=== PATIENT | female | born 1940 | race Caucasian/White ===

== ENCOUNTER 2024-10-21 18:25 | Observation (INO) ==
--- NOTE | 2024-10-21 18:49 | Emergency Department Note ---
Impression & Plan Compression fx, lumbar spine, DDD (degenerative disc disease), lumbar ED Provider Note NAME: NIKKI MOORE AGE: 84 SEX: F : 1940 ARRIVES VIA: Ambulance INFORMANT: Patient, ED PROVIDER(S): Dar Richardson DO CHIEF COMPLAINT: Back pain HPI: The patient is an 84-year-old female who presented to the emergency department for an evaluation of back pain. The patient's had back pain for approximately 4 weeks. It started when she was lifting something heavy. She notices pain going into her right leg. She was seen at the pain clinic. She has been treated by her family doctor as an outpatient. Today she had an episode where she could not stand and was on the floor. It was so profound that she spent the night on the floor. She was helped up by the nursing staff at the [facility]. They recommended that she come to the emergency department for further evaluation. She denies having any abdominal pain. She denies having any chest pain or difficulty breathing. ROS: See above HPI for pertinent positives & negatives. A total of 10 systems reviewed and were otherwise negative. PAST MEDICAL HISTORY: See Below PAST SURGICAL HISTORY: See Below FAMILY HISTORY: See Below SOCIAL HISTORY: See Below HOME MEDICATIONS: See Below ALLERGIES: See Below VITALS: See Below PHYSICAL EXAMINATION: GENERAL: Patient is awake alert in no acute distress patient is resting comfortably and showing no signs of anxiety EYES: The conjunctivae are clear. The pupils are round and reactive. EARS, NOSE, MOUTH AND THROAT: The nose is without any evidence of any deformity. NECK: The neck is nontender and supple. RESPIRATORY: Normal respiratory effort is noted there is no evidence of wheezing rhonchi or rales CARDIOVASCULAR: Regular rate and rhythm noted there no murmurs rubs or gallops normal S1 normal S2. GASTROINTESTINAL: The abdomen is soft. Abdomen is nontender. BACK: No midline tenderness was noted. There was pain in the right sciatic notch. Range of motion was intact but painful. MUSCULOSKELETAL/EXTREMITIES: There is no evidence of gross deformity full range of motion is noted in the hips and shoulders. SKIN: There is no obvious evidence of any rash. There are no petechiae, pallor or cyanosis noted. NEUROLOGIC: Patient is awake alert and oriented x3 strength is symmetric patellar reflexes are 1+ bilaterally. Achilles tendon reflexes were 1+ bilaterally. Great toe raise was symmetric. MEDICAL DECISION MAKING: The patient is an 84-year-old female who presented to the emergency department for an evaluation of back pain. The patient had a minor trauma from lifting. She did have reproducible back pain but given her age and comorbidities further laboratory and radiographic studies were obtained. The patient was treated with pain medication in the emergency department. I discussed the patient's laboratory and radiographic studies with her. She also was found to have signs of degenerative disc disease as well as an age-indeterminate L5 compression fracture. She does not remember any of the previous injury. This may indicate an injury that occurred when she for started having this pain. I discussed her condition with the on-call [facility] hospitalist. They have agreed to evaluate the patient in the emergency department. Triage Nursing notes reviewed. Prior medical records reviewed Vital Signs: reviewed and remarkable for no significant abnormalities Differential diagnosis: Musculoskeletal, disc herniation, fracture, metastatic disease, cord compression, discitis, sciatica, cauda equina, infection, aortic disease, renal colic, gastrointestinal, as well as other pathologies. ER treatment provided: See below Diagnostics interpreted by me: ECG: none Cardiac Monitoring: An order was placed for continuous cardiac monitoring. The monitor shows a rate of 67 bpm with sinus rhythm. Laboratory studies: As stated above and show below. Imaging studies: See below. Radiographic imaging was reviewed by myself Consultation(s): I discussed this case with Dr. Bhandari [facility]. Past Med/Surg History Problem List (Updated 10/21/24 @ 22:16 by Dar Richardson DO) DDD (degenerative disc disease), lumbar (Acute) Compression fx, lumbar spine (Acute) Acute leg pain (Acute) Collapse of right external ear canal SNHL (sensorineural hearing loss) Cerumen impaction History of vein stripping H/O cataract removal with insertion of prosthetic lens Cataract Varicose vein of leg Depression Family History Father Hearing loss Stroke Aunt Asthma FHx: allergies Other No family history of adverse response to anesthesia No family history of bleeding disorder Social History Smoking Status: Never smoker Preferred Language: Hungarian Feels Safe at Home: Yes Allergies Allergies Allergy/AdvReac Type Severity Reaction Status Date / Time aspirin AdvReac Intermediate Upset Verified 02/19/24 13:44 stomach Home Meds Home Medications Medication Instructions Recorded Confirmed cholecalciferol (vitamin D3) 25 25 mcg PO DAILY 01/20/23 02/19/24 mcg (1,000 unit) tablet cyanocobalamin (vitamin B-12) 1,000 mcg PO DAILY 01/20/23 02/19/24 1,000 mcg tablet sertraline 100 mg tablet 200 mg PO DAILY 01/20/23 02/19/24 melatonin 5 mg tablet 5 mg PO HS PRN Insomnia 01/21/23 02/19/24 vitamins A,C,Q-[id number]-rzjkvb 2,148 1 tab PO BID 01/21/23 02/19/24 mcg-113 mg-45 mg-17.4 mg tablet Previous Rx's Medication Instructions Recorded albuterol sulfate 90 mcg/actuation 1 inh inhalation QID PRN shortness 01/21/23 aerosol inhaler (Proventil HFA) of breath or wheezing #6.7 grams Results & Data (ED) Vital Signs Vital Signs - 24 hr 10/21/24 18:21 10/21/24 18:34 10/21/24 18:48 Pulse Rate 73 82 Pulse Rate [Apical] Respiratory Rate 18 Respiratory Effort / Characteristics Non-Labored Spontaneous Respiratory Depth Normal Respiratory Pattern Regular Blood Pressure 185/86 H Blood Pressure [Right Arm] Blood Pressure Mean 119 Blood Pressure Mean [Right Arm] Pulse Oximetry 99 97 Oxygen Delivery Method Room Air Room Air Oxygen Flow Rate Sepsis Recent Fever Within 48 Hours No Sepsis New/Unexplained Change in Mental Status N/A Sepsis Action Taken by Nursing No Action Required 10/21/24 20:00 Pulse Rate Pulse Rate [Apical] 67 Respiratory Rate 18 Respiratory Effort / Characteristics Non-Labored Spontaneous Respiratory Depth Normal Respiratory Pattern Regular Blood Pressure Blood Pressure [Right Arm] 142/73 H Blood Pressure Mean Blood Pressure Mean [Right Arm] 96 Pulse Oximetry 98 Oxygen Delivery Method Nasal Cannula Oxygen Flow Rate 3 Sepsis Recent Fever Within 48 Hours Sepsis New/Unexplained Change in Mental Status Sepsis Action Taken by Alf Medications Current Medication List: was personally reviewed by me Laboratory Data Attestation: I reviewed the patient's lab results. 10/21/24 19:56 10/21/24 19:56 Lab Results 10/21/24 Range/Units 19:56 WBC 7.94 (4.8-10.8) K/ul RBC 5.14 (4.20-5.40) M/uL Hgb 14.5 (12.0-16.0) g/dl Hct 43.8 (37.0-47.0) % MCV 85.2 (80.0-100.0) fL MCH 28.2 (25.0-34.0) pg MCHC 33.1 (32.0-36.0) g/dL RDW Std Deviation 41.3 (36.4-46.3) fL RDW Coeff of Galdino 13.2 (11.5-14.5) % Plt Count 138 (130-400) K/uL MPV 9.5 (9.4-12.4) fL Immature Gran % (Auto) 0.4 % Neut % (Auto) 82.1 % Lymph % (Auto) 9.1 % Letcher % (Auto) 7.7 % Eos % (Auto) 0.6 % Baso % (Auto) 0.1 % Neut # (Auto) 6.52 H (1.40-6.50) K/uL Lymph # (Auto) 0.72 L (1.20-3.40) K/uL Letcher # (Auto) 0.61 H (0.11-0.59) K/uL Eos # (Auto) 0.05 (0.00-0.50) K/uL Baso # (Auto) 0.01 (0.00-0.20) K/uL Immature Gran # (Auto) 0.03 (0.01-0.20) K/uL PT 10.9 (9.0-12.0) Seconds INR 1.0 (0.9-1.1) APTT 26 (21-31) Seconds PTT Ratio 1.0 Sodium 138 (136-145) mmol/L Potassium 4.2 (3.5-5.1) mmol/L Chloride 104 (98-107) mmol/L Carbon Dioxide 28 (21-32) mmol/L Anion Gap 6 (3-11) BUN 18 (6-23) mg/dl Creatinine 0.79 (0.6-1.2) mg/dl Est Cr Clr Drug Dosing 57.8 ml/min eGFR 72.80 BUN/Creatinine Ratio 22.8 H (10-20) Glucose 122 H (70-99(Fasting)) mg/dl Calcium 9.8 (8.6-10.3) mg/dl Total Bilirubin 1.2 H (0.2-1.0) mg/dl AST 35 (13-39) U/L ALT 37 (7-52) U/L Alkaline Phosphatase 84 (34-104) U/L Troponin I High Sens 15.4 H (0-14) pg/ml Total Protein 7.5 (6.0-8.3) gm/dl Albumin 4.0 (3.4-5.0) gm/dl Globulin 3.5 (2.5-4.0) gm/dl Albumin/Globulin Ratio 1.1 (0.9-2) Lipase 24 (11-82) U/L Administered Medications Morphine Sulfate (Morphine Sulfate 4 Mg/Ml 1 Ml Carp\Vial) 4 mg IV Q15M PRN PRN Reason: Pain Stop: 11/04/24 18:38 Last Admin: 10/21/24 19:33 Dose: 4 mg Documented By: DEMETRIUS Discontinued Medications Ondansetron HCl (Ondansetron Inj 2 Mg/Ml 2 Ml Vial) 4 mg IV NOW STA Stop: 10/21/24 18:40 Last Admin: 10/21/24 19:33 Dose: 4 mg Documented By: DEMETRIUS Imaging Data Attestation: I personally reviewed and interpreted this imaging study as follows: My Impression: CT of the abdomen and pelvis was obtained in the emergency department. My interpretation is no free air or signs of bowel obstruction, final report below. Radiologist's Impression: Abdomen/Pelvis CT 10/21/24 18:39 Exam(s): CT ABDOMEN + PELVIS Without Contrast EXAM: CT Abdomen and Pelvis Without Intravenous Contrast CLINICAL HISTORY: Reason for exam: right flank pain. TECHNIQUE: Axial computed tomography images of the abdomen and pelvis without intravenous contrast. CTDI is 27.2 mGy and DLP is 1307.45 mGy-cm. Automated exposure control was utilized for the study. A dose lowering technique was utilized adhering to the principles of ALARA. COMPARISON: No relevant prior studies available. FINDINGS: ABDOMEN: Liver: Cyst in the left hepatic lobe measuring 1.5 cm. Gallbladder and bile ducts: Unremarkable. Pancreas: Unremarkable. Spleen: Mild splenomegaly. Adrenals: Unremarkable. Kidneys and ureters: No ureteral stone or obstructive uropathy. Stomach and bowel: Colonic diverticulosis. PELVIS: Appendix: No findings to suggest acute appendicitis. Bladder: Unremarkable. Reproductive: Unremarkable as visualized. ABDOMEN and PELVIS: Intraperitoneal space: Unremarkable. No free air. No significant fluid collection. Bones/joints: No acute fracture. Soft tissues: Unremarkable. Vasculature: Aortobiiliac atherosclerosis. Lymph nodes: Unremarkable. IMPRESSION: 1. No ureteral stone or obstructive uropathy. 2. Colonic diverticulosis. 3. Mild splenomegaly. Electronically signed by: Reilly Mccrary MD 10/21/24 21:[address] 10/21/24 18:39 Exam(s): CT L SPINE EXAM: CT Lumbar Spine Without Intravenous Contrast CLINICAL HISTORY: Reason for exam: right sided pain. TECHNIQUE: Axial computed tomography images of the lumbar spine without intravenous contrast. CTDI is 27.2 mGy and DLP is 1307.45 mGy-cm. Automated exposure control was utilized for the study. A dose lowering technique was utilized adhering to the principles of ALARA. COMPARISON: No relevant prior studies available. FINDINGS: Vertebrae: Age indeterminate superior endplate compression deformity at L5. Bones are osteopenic which limits evaluation for acute nondisplaced fracture trace anterolisthesis at L4-5. Discs/spinal canal/neural foramina: Degenerative disc disease most pronounced at L4-5 and L5-S1. No significant canal stenosis. Moderate bilateral foraminal stenosis. Soft tissues: Unremarkable. IMPRESSION: 1. Age indeterminate superior endplate compression deformity at L5, favored chronic. 2. Degenerative changes most pronounced at L4-5 and L5-S1. Electronically signed by: Reilly Mccrary MD 10/21/24 21:43 PM Discharge Plan Visit Data Chief Complaint: Fall Stated Complaint: FALL, WEAKNESS ED Provider: Dar Richardson Discharge Problem: Compression fx, lumbar spine, DDD (degenerative disc disease), lumbar Patient Disposition: Being Evaluated by Hospitalist Forms Stand Alone Forms: [employer] Prescriptions Prescriptions: No Action sertraline 100 mg tablet 200 mg PO DAILY cholecalciferol (vitamin D3) 25 mcg (1,000 unit) Tablet 25 mcg PO DAILY cyanocobalamin (vitamin B-12) 1,000 mcg Tablet 1,000 mcg PO DAILY Ocuvite Preservision 2,148 mcg-113 mg-45 mg-17.4mg Tablet 1 tab PO BID Rx Instructions: administer with AM and PM meals melatonin 5 mg Tablet 5 mg PO HS PRN (Reason: Insomnia) albuterol sulfate [Proventil HFA] 90 mcg/actuation HFA aerosol inhaler 1 inh inhalation QID PRN (Reason: shortness of breath or wheezing) Qty: 6.7 0RF Referrals Referrals: Nadir Roach MD [Primary Care Provider] - Discharge Problem: Compression fx, lumbar spine Qualifiers: Encounter type: initial encounter Lumbar vertebra fracture level: L5 Qualified Code(s): S32.050A - Wedge compression fracture of fifth lumbar vertebra, initial encounter for closed fracture DDD (degenerative disc disease), lumbar Qualifiers: Disc-related pain type: unspecified whether pain present Qualified Code(s): M 51.369 - Other intervertebral disc degeneration, lumbar region without mention of lumbar back pain or lower extremity pain
--- OUTSIDE RECORDS SUMMARY | 2024-10-21 19:06 | External Medical Summary | Summary of Care ---
Author Name Unknown Organization [facility] Address [address] [place] [address] Phone [phone] Care Team Providers Care Process Development Engineer Name Role Phone Nadir Roach MD Primary Care Provider + Reason for Referral * Evaluate & Treat - Unlimited Visits (Within 3 days (urgent)) - Authorized Specialty Diagnoses / Procedures Referred By Jacek luu Referred To Contact Pain Management / Pain Medicine Diagnoses Acute right-sided low back pain with right-sided sciatica Nadir Roach MD [address] [facility] [place] [address] Phone: tel: fax: Referral ID Status Reason Start Date Expiration Date Visits Requested Visits Authorized [id number] Authorized Specialty Services Required 4 [phone] Question Answer Referral Priority Within 3 days (urgent) Where should this appointment be scheduled? [facility] Reason for referral? Interventional Pain Management - (Injection) What condition is the patient being referred for? Lumbar Radiculopathy - compressed vertebrae with leg pain What is the preferred location to have this test performed? [facility] Comments Patient Name: Karolyn Fishman Date of : 1940 Department Phone Number: MRI or CT (if unable to have a MRI) is recommended if any of the following apply: 1. Patient has neck or back pain with radiation to extremities. A previous MRI will be accepted if symptoms unchanged since prior MRI. 2. Spinal surgery since last MRI. If yes, order a MRI with and without contrast. 3. Hx or ongoing cancer treatment. Patient will need spine x-ray (Ap/Lat) for axial neck or back pain if not done previously. Fax No. [facility] [phone] or contact front attendant [phone] Fax No. [facility] [phone] or contact front attendant [phone] Fax No. [facility] [phone] or contact front attendant [phone] Reason for Visit * Reason Onset Date Comments Referral 10/18/2024 Encounter Details Date Type Department Care Team (Late st Contact Info) Description 10/18/2024 Telephone General Internal Medicine [facility] [address] [facility] [place] [address] Nadir Roach MD [address] [facility] [place] [address] Referral Medications OCUVITE EXTRA PO TABS None Entered Active ZOLOFT 100 MG PO TABS take 2 tabs daily Active VITAMIN D 1000 UNITS PO CAPS one pill each day Active loratadine (CLARITIN) 10 MG TabletIndicatio ns:Nasal congestion Take 1 Tab by mouth daily as needed for Rhinitis. 30 Tab 5 9 Active Vitamin B-12 100 MCG Oral Tablet (vitamin B-12) Take 1 Tablet by mouth in the morning. Active Fluticasone Propionate 50 MCG/ACT Nasal SuspensionIndic ations:Nasal congestion,Post -nasal drip Administer into each nostril 2 Sprays before bedtime. 2 Active Additional Information Patient taking differently:2 [place] Each Nostril HS,As needed, Reported on 10/11/2024 Diclofenac Sodium 75 MG Oral Tablet Delayed Release (Voltaren)Indic ations:Acute bilateral low back pain with bilateral sciatica Take 1 Tablet by mouth 2 times a day as needed (Pain). With food. 60 Tablet 3 4 Active documented as of this encounter (statuses as of 10/18/2024) Active Problems Problem Noted Date Diagnosed Date Moderate aortic stenosis 08/25/2020 Moderate mitral regurgitation 08/25/2020 POLST (Physician Orders for Life-Sustaining Karen tment) 02/03/2019 Major depressive disorder wi th single episode, 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 Mixed hyperlipidemia 07/30/2017 documented as of this encounter (statuses as of 10/18/2024) Resolved Problems Problem Noted Date Diagnosed Date Resolved Date Body mass index (BMI) of 40. 0 to 44.9 in adult 07/08/2022 09/03/2023 Overview: Per Obesity protocol Major depressive disorder, r ecurrent, in full remission 08/04/2018 08/04/2018 Morbid (severe) obesity due to excess calories 08/04/2018 08/04/2018 Morbid obesity, unspecified obesity type 08/04/2018 07/11/2022 Overview: Per Obesity protocol Depression with anxiety 07/30/201706/2018 Macular degeneration 01/17/2010 013 Major depressive disorder 01/10/1999 Overview (08/19/2017): ICD-10 update of inactive term HYPERCHOLESTEROLEMIA w/ high HDL's 07/30/2017 Other allergic rhinitis 01/2017 Overview (08/19/2017): ICD-10 update of inactive term documented as of this encounter (statuses as of 10/18/2024) Immunizations Name Administration Dates Next Due COVID-19 mRNA, LNP-s, No Pre serve, 2-Dose Series (Moderna) 08/30/2023,12/28/2020,11/30/2020 COVID-19, MRNA-LNP, PF, 50 M CG/0.5 mL, 12 YRS AND ABOVE, IM (MODERNA-Spikevax) 07/21/2024 COVID-19, mRNA, LNP-s, PF, B ooster, 100mcg/0.5mg (Moderna) 04/08/2022,08/31/2021 Covid-19, Mrna, Lnp-s, Pf, B ivalent, 30 Mcg, IM, 12 yrs and above (Pfizer) 07/30/2022 Pneumococcal Conjugate Vacc, 13 Valent (Prevnar) 07/30/2017 Pneumococcal Polysaccharide PPV23 (Pneumovax) 06/27/2011 RSV Vac., Recomb, Adjuvant, PF,0.5 Ml (Arexvy) 07/07/2023 Seasonal Influenza Vac., MDV , IM, 0.5 mL (Fluzone) 08/02/2014,09/03/2013,10/07/2012,06/27,08/07/2010 Seasonal Influenza, PF, 6 M & above, IM , (FluLaval or Fluzone) 08/04/2018,07/30/2017 Seasonal Influenza, Quadriva lent Hd (Fluzone Hd) 08/24/2021 Seasonal Influenza, Quadriva lent, No Preserve, IM 08/18/2020,07/19/2016,08/07/2015 Seasonal Influenza, Trivalen t, Adjuvanted, 65+ YRS, PF, (Fluad) 08/23/2022,08/09/2019 TD - Tetanus/Diptheria (ADULT) 06/27/2011,1993 TD, Preservative Free 06/27/2011 TDAP (age 10 and older)(Boostrix) 08/19/2019 Varicella Zoster Vaccine (Adult) 11/23/2007 Zoster Vaccine Recombinant (Shingrix) 10/25/2019 ,08/24/2019 documented as of this encounter Social History Tobacco Use Types Packs/Day Years Used Date Smoking Tobacco: Former Cigarettes 1 30 0 10/27/1954 - 10/27/1984 Smokeless Tobacco: Never Alcohol Use Standard Drinks/Week Comments Yes 0 (1 standard drink = 0.6 oz pur e alcohol) occ PHQ-2 Answer Date Recorded PHQ Adult Total Score 2 09/03/2023 Hunger Vital Sign Answer Date Recorded Worried About Running Out of Food in the Last Ye ar Never true 08/25/2020 Ran Out of Food in the Last Year Never true 08/25/2020 Comments No Sex and Gender Information Value Date Recorded Sex Assigned at Female 08/09/2019 2:03 PM EDT Legal Sex Female 6:02 AM EST Gender Identity Female 08/09/2019 2:03 PM EDT Sexual Orientation Straight 08/09/2019 2: 03 PM EDT 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 Roach's previous message. She verbalized understanding. * Telephone Encounter - Nadir Roach MD - 10/18/2024 1:36 PM EST signed * Telephone Encounter - Talya Banuelos LPN - 10/18/2024 11:08 AM EST Patient is calling. Patient got an appt. With pain management [facility] with [place] Freitas Asking for a referral. Has a compressed L4 and L5. Pain is mostly in her right front leg. documented in this encounter Plan of Treatment Upcoming Encounters Date Type Department Care Team (Late st Contact Info) Description 10/19/2024 12:30 PM EST Office Visit Interventional Pain Center, [facility] [address] [place] [address] Roseann Nicole PA-C [address] [place] [address] 08/08/2025 3:00 PM EDT Cardiac Studies Cardiac Studies, [facility] [address] [facility] [place] [address] 09/08/2025 10:20 AM EST Office Visit General Internal Medicine [facility] [address] [facility] [place] [address] Nadir Roach MD [address] [place], [place] [address] Scheduled Referrals Name Type Priority Associated Diagnoses Orde r Schedule PAIN MEDICINE REFERRAL OP Referral Within 3 days (urgent) Acute right-sided low back pain with right-sided sciatica Ordered: 10/18/2024 Health Maintenance Due Date Last Done Comments Adult Wellness Visit 2004 Influenza Vaccine (FLU shot) (#1) 2024 08/23/2022, 08/24/2021, 08/18/2020, Additional history exists Depression Monitoring 09/03/2024 09/03/2023 DTap/Tdap Vaccines (2 - Td or Tdap) 08/19/2029 08/19/2019, 06/27/2011, 06/27/2011, Additional history exists DXA Scan Discontinued 07/19/2014, 06/28, 07/03/2011, Additional history exists Pneumococcal Vaccine: 65+ Years Completed 07/30/2017, 06/27/2011 Zoster Vaccines Completed 10/25/2019, 07/28, 11/23/2007 COVID-19 Vaccine Completed 07/21/2024, 01/2023, 07/30/2022, Additional history exists HPV (Gardasil) Vaccine Aged Out No lo nger eligible based on patient's age to complete this topic Hepatitis B Vaccine Aged Out No longe r eligible based on patient's age to complete this topic MENINGOCOCCAL (MENACTRA/MENVEO) Aged Out No longer eligible based on patient's age to complete this topic documented as of this encounter Medical Devices Not on filedocumented as of this encounter Visit Diagnoses Diagnosis Acute right-sided low back pain with right-sided sciatica- Primary documented in this encounter Advance Directives Documents on File Type Date Recorded Patient Supply Specialist Expl anation POLST 02/03/2019 POLST Advance Directives and Living Will 05/24/2005 LIVING WILL Care Teams Process Development Engineer Relationship Specialty Start Date End Date Nadir Roach MD [address] [facility], [place] [address] PCP - General Internal Medicine 12/16/18 documented as of this encounter
--- OUTSIDE RECORDS SUMMARY | 2024-10-21 19:06 | External Medical Summary | Summary of Care ---
Author Name Unknown Organization [facility] Address [address] [place] [address] Phone [phone] Care Team Providers Care Sprigger Name Role Phone Nadir Roach MD Primary Care Provider + Reason for Referral * Precert (Within 10 days (routine)) - Pending Review Specialty Diagnoses / Procedures Referred By Contac t Referred To Contact Pain Medicine Diagnoses Lumbar radicular pain Procedures INJECT DX/THER SUBSTANCE INTERLAMINAR LUMBAR/SACRAL W IMAGE GUIDE Roseann Nicole PA-C [address] [place] [address] Phone: tel: fax: Referral ID Status Reason Start Date Expiration Date V isits Requested Visits Authorized [id number] Pending Review 01/17/2025 [id number] * Precert (Within 10 days (routine)) - Pending Review Specialty Diagnoses / Procedures Referred By Contac t Referred To Contact Radiology Diagnoses Lumbar radicular pain Procedures MRI L SPINE WO CONTRAST Roseann Nicole PA-C [address] [place] [address] Phone: tel: fax: Referral ID Status Reason Start Date Expiration Date V isits Requested Visits Authorized [id number] Pending Review 11/19/2024 999 [id number] Reason for Visit * Reason Comments Back Pain Bilateral low back p ain intermittent dull achy pain. Right lower leg knee to ankle constant throbbing- Started Sep. 7th after lifting a heavy box. * Evaluate & Treat - Unlimited Visits (Within 3 days (urgent)) - Authorized Specialty Diagnoses / Procedures Referred By Jacek t Referred To Contact Pain Management / Pain Medicine Diagnoses Acute right-sided low back pain with right-sided sciatica Nadir Roach MD [address] [place] [address] Phone: tel: fax: Referral ID Status Reason Start Date Expiration Date Visits Requested Visits Authorized [id number] Authorized Specialty Services Required 4 [phone] Encounter Details Date Type Department Care Team (Late st Contact Info) Description 10/19/2024 12:30 PM EST Office Visit [facility], [facility] [address] [place] [id number] Roseann Nicole PA-C [address] [facility] [place] [address] Lumbar radicular pain* Allergies No known active allergiesdocumented as of this encounter (statuses as of 10/19/2024) Medications OCUVITE EXTRA PO TABS None Entered [...] 2 Active Additional Information Patient taking differently:2 Golden Each Nostril HS,As needed, Reported on 10/11/2024 Diclofenac Sodium 75 MG Oral Tablet Delayed Release (Voltaren)Indic ations:Acute bilateral low back pain with bilateral sciatica Take 1 Tablet by mouth 2 times a day as needed (Pain). With food. 60 Tablet 3 4 Active Additional Information Patient not taking.Reported on 10/19/2024 Diclofenac Sodium 1 % External Gel (Voltaren) Apply topically to affected area as needed. Active Gabapentin 100 MG Oral Capsule (Neurontin)Bryanna cations:Lumbar radicular pain Take one capsule by mouth one hour prior to bed for three days then increase to one capsule AM and one capsule PM. 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 Mixed hyperlipidemia 07/30/2017 documented as of this encounter (statuses as of 10/19/2024) Resolved Problems Problem Noted Date Diagnosed Date [...] as of this encounter (statuses as of 10/19/2024) Immunizations Name Administration Dates Next Due COVID-19 [...] on file documented as of this encounter Progress Notes * Roseann Nicole PA-C - 10/19/2024 12:45 PM EST GENERAL HISTORY & PHYSICAL EXAMINATION - Anesthesia and Pain Service Name: Karolyn Fishman Location: [facility] REFERRING PHYSICIAN: Nadir Roach MD Thank you for referring Karolyn Fishman. CHIEF COMPLAINT: R LE pain HPI: Karolyn Fishman is a 84 year old female who complains of chronic low back pain with new onset R anterior can pain. R LE pain is more significant than low back region. This pain started 10/02after lifting heavy box. Followed with PCP, ordered L spine xray, started diclofenac and placed referral to our clinic. Due to uncontrolled pain in R LE presented to [facility] ED 10/15 - xray and U/S R LEunremarkable. Has not had L spine MRI at this time. Plans to start physical therapy in the near future, although very concerned that the pain is too severe, has spoke to [facility] [employer]. Symptoms occur daily. Pain is constant, rated 10/10. Aggravating factors include: ambulating, prolonged sta nding. Alleviating factors include: ice, topical voltaren. Admits associated paresthesia R anteriorshin. Weakness B LE, using walking stick. Denies L LE radicular pain or paresthesia. Denies bowel or bladder incontinence. Denies hx spine surgery or injections. Personally reviewed L spine xray 10/07/24 - listhesis L4/5 with significant DDD L4/5 and L5/S1, no acute compression changes Significant past medical hx includes: depression. Current medications used for pain: oxycodone, tylenol ES, topical voltaren. Past medications used for pain: oral voltaren. Anticoagulation therapy: no Diabetic: no PAST MEDICAL HISTORY: Past Medical History: Diagnosis Date Depressive disorder, not elsewhere classified Mixed hyperlipidemia 07/30/2017 Moderate aortic stenosis 08/25/2020 Moderate mitral regurgitation 08/25/2020 Past Medical History - Pertinent Findings: (-) clotting disorder, (-) anesthetic problem PAST SURGICAL HISTORY: Past Surgical History: Procedure Laterality Date COLONOSCOPY 06/2013 diverticulae- no f/u in 10 years COLONOSCOPY, DIAGNOSTIC (RECTUM) 07/02/2013 COLONOSCOPY FLEXIBLE PROXIMAL DIAGNOSTIC performed by Raphael De La Torre MD at ENDOSCOPY [facility] LIGATE/CUT OVIDUCT(S) Tubal Ligation REMOVE CATARACT, INSERT LENS PROSTH Right right- Dr. Goldstein REMOVE CATARACT, INSERT LENS PROSTH Left 02/07/2016 left- Dr. Goldstein LOYD EMBO CAVA,ILIAC,FEM-POP LE bilat vein "stripping" FAMILY HISTORY: Family History Problem Relation Name Age of Onset Heart Disorder Father AGE 81- PR Cancer Aunt (Unspecified) m. aunt - breast cancer in her 80's- still living early 90's Eye Problems Mother Alexandra AMD Eye Problems Grandmother (Maternal) Samia AMD Eye Problems Other cousin-blindness from a tumor Family History - Pertinent Findings: (-) clotting disorder and (-) anesthetic problem SOCIAL HISTORY: Social History Tobacco Use Smoking status: Former Current packs/day: 0.00 Average packs/day: 1 pack/day for 30.0 years (30.0 ttl pk-yrs) Types: Cigarettes Start date: 10/27/1954 Quit date: 10/27/1984 Years since quittin.0 Smokeless tobacco: Never Vaping Use Vaping status: Never Used Substance Use Topics Alcohol use: Yes Alcohol/week: 0.0 standard drinks of alcohol Comment: occ Drug use: No CURRENT MEDICATIONS: Note that discontinued and completed medications (per the MAR) continue to display for 24 hours. Ordered medications to be given in the future also display. Current Outpatient Medications Medication Sig Dispense Refill OCUVITE EXTRA PO TABS None Entered ZOLOFT 100 MG PO TABS take 2 tabs daily VITAMIN D 1000 UNITS PO CAPS one pill each day Vitamin B-12 100 MCG Oral Tablet (vitamin B-12) Take 1 Tablet by mouth in the morning. Diclofenac Sodium 1 % External Gel (Voltaren) Apply topically to affected area as needed. loratadine (CLARITIN) 10 MG Tablet Take 1 Tab by mouth daily as needed for Rhinitis. 30 Tab 5 Fluticasone Propionate 50 MCG/ACT Nasal Suspension Administer into each nostril 2 Sprays before bedtime. (Patient taking differently: Administer 2 Sprays into each nostril at bedtime. As needed) Diclofenac Sodium 75 MG Oral Tablet Delayed Release (Voltaren) Take 1 Tablet by mouth 2 times a dayas needed (Pain). With food. (Patient not taking: Reported on 10/19/2024) 60 Tablet 3 No current facility-administered medications for this visit. ALLERGIES: Patient has no known allergies. ROS: Constitutional: Negative for fatigue, fever, appetite change, unexplained weight loss. ENT: Negative for hearing loss, sore throat. Respiratory: Negative for cough, shortness of breath, dyspnea. Musculoskeletal: Negative for neck, mid-back pain. + low back and R LE pain - see HPI Neurological: Negative for headaches, seizures. + paresthesias R LE - see HPI Genitourinary: Negative for dysuria, urinary frequency, hematuria. Hematologic/ Lymphatic: Negative for easy bleeding, bruising, lymphadenopathy. Gastrointestinal: Negative for abdominal pain, nausea, vomiting, constipation, diarrhea. Cardiovascular: Negative for chest pain, palpitations, ankle swelling, orthopnea. PHYSICAL EXAMINATION: Most Recent Vital Signs: There were no vitals filed for this visit. General Appearance: Patient appears to be about stated age, pleasant and cooperative with normal affect. HEENT: head normocephalic and pupils equal round and reactive to light and accommodation, EOMI Chest: No gross abnormality. Nonlabored breathing. Lumbar Spine: Normal lumbar lordatic curvature is present. Skin is intact without gross abnormalities. No masses palpable. Midline nontender. + RIGHT paravertebral tenderness. B sacroiliac joint nontender. No evidence of myofascial trigger points. Limited active ROM with flexion and extension of the lumbar spine. Lower Extremity Strength: Hip Flexion 5/5 bilaterally. Hip Abductor 5/5 bilaterally. Hip Adductor 5/5 bilaterally. Extensor Hallicus Longus 5/5 bilaterally Deep Tendon Reflex: Patellar: 2/4 bilaterally. Achilles: 1/4 bilaterally. Low Back Provocative Testing: VJ test: negative bilaterally. Straight Leg Raise Test: positive R, negative L. Lumbar Facet Loading: positive bilaterally. Sensation: Dermatomal sensation not formally tested. Decreased sensation to light touch R anterior can in L4/5 dermatomal pattern compared to L. Gait: Intact, no sign of ataxia. Ambulates with assistance. IMAGING: XR L SPINE 2-3 VIEWS 10/07/24 Multilevel degenerative changes of the spine is identified. There ismild disc space narrowing with osteophytes . No acute fracture or subluxation. Grade 1 anterolisthesis of L4 on L5 IMPRESSION As above. ASSESSMENT: Lumbar radicular pain, R L4 pattern PLAN: Progressive lumbar radiculopathy R L4 after lifting heavy box three weeks ago. Mild relief with medication management. Has been evaluated by PCP and [facility] ED for this complaint. Reviewed L spine xray 10/07/24 - listhesis L4/5 with significant DDD L4/5 and L5/S1, no acute compression changes. Decreased sensation R anterior can in L4 pattern compared to L. Recommend L spine MRI for further revaluation of radicular symptoms. Follow up via telephone to review. Discussed ROSAURA, pending MRI, using fluoroscopy. Risks including, but not limited to epidural hematoma, infection, worsening pain, failure to alleviate pain, nerve injury and possible steroid side effects were reviewed. 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 Due to severity and duration of symptoms, will schedule tentatively schedule R L4/5 ROSAURA pending MRI. Requesting medication while waiting for imaging/injection. Discussed low dose gabapentin. 100 mg QHS for three days, then increase to one capsule BID. Can consider further titration if needed. Possible side effects such as increased fatigue, drowsiness or dizziness were reviewed and accepted. Follow up via MyG in two weeks. Encouraged to consider starting PT. She is concerned for severity of pain. Roseann Nicole PA-C 10/19/2024 documented in this encounter Nursing Notes * Fiordaliza Dejesus LPN - 10/19/2024 12:21 PM EST Patient presents for Bilateral low back pain intermittent dull achy pain. Right lower leg knee to ankle constant throbbing- Started Oct.02 after lifting a heavy box. Previous injections- none Previous surgeries- none PT- none Imaging- 10/07/24 XR L Spine documented in this encounter Plan of Treatment Upcoming Encounters Date Type Department Care Team (Latest Contact Info) Description 11/19/2024 1:15 PM EST Imaging Radiology [address] [place] [address] 01/07/2025 12:30 PM EDT Hospital Encounter OR [facility], Operating Room [facility] [address] [place] [id number] Santhosh Lowe, DO [address] [place] [address] 01/07/2025 12:30 PM EDT - 01/07/2025 12:57 PM EDT Surgery OR [facility], Operating Room [facility] [address] [place] [address] Santhosh Lowe, [address] [place] [phone] INJECTION SPINE LUMBAR OR SACRAL 08/08/2025 3:00 PM EDT Cardiac Studies Cardiac Studies, [facility] [address] [place] [address] 09/08/2025 10:20 AM EST Office Visit General Internal Medicine [facility] [address] [facility] [place] [address] Nadir Roach MD [address] [facility] [place] [address] Scheduled Orders Name Type Priority Associated Diagnoses Orde r Schedule MRI L SPINE WO CONTRAST Medical Imaging Routine Lumbar radicular pain Expected: 11/19/2024 (Approximate), Expires: 11/19/2025 INJECT DX/THER SUBSTANCE INTERLAMINAR LUMBAR/SACRAL W IMAGE GUIDE Procedures Routine Lumbar radicular pain Expected: 01/17/2025 (Approximate), Expires: 11/19/2025 Scheduled Procedures Name Priority Associated Diagnoses Date/Ti me INJECTION SPINE LUMBAR OR SACRAL Lumbar radiculopathy 01/07/2025 12:30 PM EDT Health Maintenance Due Date Last Done Comments [...] as of this encounter Visit Diagnoses Diagnosis Lumbar radicular pain- Primary Thoracic or lumbosacral neuritis or radiculitis, unspecified Lumbar radiculopathy Thoracic or lumbosacral neuritis or radiculitis, unspecified documented in this encounter Advance Directives Documents on File Type Date Recorded Patient [employer] Expl anation POL 02/03/2019 POLST Advance Directives and Living Will 05/24/2005 LIVING WILL Care Teams Sprigger Relationship Specialty Start Date End Date Nadir Roach MD [address] [place] [address] PCP - General Internal Medicine 12/16/18 documented as of this encounter
[2024-10-21] MEDS: MoRPHine SULFATE 4 MG/ML 1 ML CARP\\VIAL IV PRN (19:33)
[2024-10-21] MEDS: ONDANSETRON INJ 2 MG/ML 2 ML VIAL IV STA (19:33)
[2024-10-21 20:27] LABS: Albumin Globulin Ratio 1.1 (0.9-2); BUN Creatinine Ratio 22.8 (10-20); Bilirubin,Total 1.2 mg/dl (0.2-1.0); Calcium 9.8 mg/dl (8.6-10.3); Creatinine Clr Calc Pharmacy 57.8 ml/min; Globulin 3.5 gm/dl (2.5-4.0); Potassium 4.2 mmol/L (3.5-5.1); Total Protein 7.5 gm/dl (6.0-8.3)
[2024-10-21 20:30] LABS: Basophils # (auto) 0.01 K/uL (0.00-0.20); Basophils % (auto) 0.1 %; Eosinophils # (auto) 0.05 K/uL (0.00-0.50); Eosinophils % (auto) 0.6 %; Hematocrit (blood only) 43.8 % (37.0-47.0); Hemoglobin 14.5 g/dl (12.0-16.0); Immature Granulocytes # (auto) 0.03 K/uL (0.01-0.20); Immature Granulocytes % (auto) 0.4 %; Lymphocytes # (auto) 0.72 K/uL (1.20-3.40); Lymphocytes % (auto) 9.1 %; Mean Corpuscular Hemoglobin 28.2 pg (25.0-34.0); Mean Corpuscular Hgb Conc 33.1 g/dL (32.0-36.0); Mean Corpuscular Volume 85.2 fL (80.0-100.0); Mean Platelet Volume 9.5 fL (9.4-12.4); Monocytes # (auto) 0.61 K/uL (0.11-0.59); Monocytes % (auto) 7.7 %; Neutrophils # (auto) 6.52 K/uL (1.40-6.50); Neutrophils % (auto) 82.1 %; Platelet Count 138 K/uL (130-400); RDW Coefficient of Variation 13.2 % (11.5-14.5); RDW Standard Deviation 41.3 fL (36.4-46.3); Red Blood Count 5.14 M/uL (4.20-5.40); White Blood Count 7.94 K/ul (4.8-10.8)
[2024-10-21 20:35] LABS: Troponin I High Sensitivity 15.4 pg/ml (0-14)
[2024-10-21 20:49] LABS: Partial Thromboplastin Time 26 Seconds (21-31); Prothrombin Time 10.9 Seconds (9.0-12.0)
--- NOTE | 2024-10-21 21:43 | CT Scan Report ---
Exam(s): CT ABDOMEN + PELVIS Without Contrast EXAM: CT Abdomen and Pelvis Without Intravenous Contrast CLINICAL HISTORY: Reason for exam: right flank pain. TECHNIQUE: Axial computed tomography images of the abdomen and pelvis without intravenous contrast. CTDI is 27.2 mGy and DLP is 1307.45 mGy-cm. Automated exposure control was utilized for the study. A dose lowering technique was utilized adhering to the principles of ALARA. COMPARISON: No relevant prior studies available. FINDINGS: ABDOMEN: Liver: Cyst in the left hepatic lobe measuring 1.5 cm. Gallbladder and bile ducts: Unremarkable. Pancreas: Unremarkable. Spleen: Mild splenomegaly. Adrenals: Unremarkable. Kidneys and ureters: No ureteral stone or obstructive uropathy. Stomach and bowel: Colonic diverticulosis. PELVIS: Appendix: No findings to suggest acute appendicitis. Bladder: Unremarkable. Reproductive: Unremarkable as visualized. ABDOMEN and PELVIS: Intraperitoneal space: Unremarkable. No free air. No significant fluid collection. Bones/joints: No acute fracture. Soft tissues: Unremarkable. Vasculature: Aortobiiliac atherosclerosis. Lymph nodes: Unremarkable. IMPRESSION: 1. No ureteral stone or obstructive uropathy. 2. Colonic diverticulosis. 3. Mild splenomegaly. Electronically signed by: Reilly Mccrary MD 10/21/24 21:41 PM
--- NOTE | 2024-10-21 21:44 | CT Scan Report ---
Exam(s): CT L SPINE EXAM: CT Lumbar Spine Without Intravenous Contrast CLINICAL HISTORY: Reason for exam: right sided pain. TECHNIQUE: Axial computed tomography images of the lumbar spine without intravenous contrast. CTDI is 27.2 mGy and DLP is 1307.45 mGy-cm. Automated exposure control was utilized for the study. A dose lowering technique was utilized adhering to the principles of ALARA. COMPARISON: No relevant prior studies available. FINDINGS: Vertebrae: Age indeterminate superior endplate compression deformity at L5. Bones are osteopenic which limits evaluation for acute nondisplaced fracture trace anterolisthesis at L4-5. Discs/spinal canal/neural foramina: Degenerative disc disease most pronounced at L4-5 and L5-S1. No significant canal stenosis. Moderate bilateral foraminal stenosis. Soft tissues: Unremarkable. IMPRESSION: 1. Age indeterminate superior endplate compression deformity at L5, favored chronic. 2. Degenerative changes most pronounced at L4-5 and L5-S1. Electronically signed by: Reilly Mccrary MD 10/21/24 21:43 PM
[2024-10-21 23:15] LABS: Appearance Urine Clear (Clear); Bacteria Urine Automated 4+ (None Seen); Bilirubin Urine Negative (Negative); Blood Urine Trace (Negative); Color Urine Dark Yellow; Glucose Urine UA Negative (Negative); Ketones Urine Trace (Negative); Leukocyte Esterase Urine 1+ (Negative); Nitrite Urine Positive (Negative); Protein Urine Negative (Negative); RBC Urine Automated 0-2 /hpf (0-2); Specific Gravity Urine 1.024 (1.000-1.030); Urobilinogen Urine Negative (Negative); WBC Urine Automated 0-5 /hpf (0-5); pH Urine 5.5 (4.5-7.5)
[2024-10-22] MEDS: cefTRIAXone SODIUM 2,000 MG/50 ML BAG IV STA (00:41)
--- NOTE | 2024-10-22 01:27 | History & Physical Report ---
Date of Service October 22, 2024 Assessment & Plan (1) Severe low back pain: Plan: 84-year-old female with past medical significant for mixed hyperlipidemia, moderate aortic stenosis, moderate mitral regurgitation, depression comes because of severe back pain radiating to right lower extremity and ambulatory dysfunction. Patient states back pain started after she moved heavy boxes on 09/28. Used Tylenol and Aleve without much help. She followed with PCP on 10/02 telemedicine and prescribed prednisone course. Prednisone was not helping called PCP again and lumbar spine x-ray was ordered which was done on 10/07/2024 which showed grade 1 anterolisthesis of L4 on L5. Multilevel degenerative changes of the spine noted. Baclofen as needed was ordered without much relief. She also used topical Voltaren with minimal relief. Then patient started developing severe pain down front of her right leg making ambulation difficult. She is using a cane to ambulate. She saw PCP again in the office on 10/11/24 and was prescribed diclofenac sodium 75 mg twice daily as needed. As the medicines were not helping she called PCP again and she was referred to pain management. On October 15/2024 she came to the ER as she was having difficulty ambulation because of pain. Right lower extremity Doppler was done is negative for DVT ,plan right tibia-fibula x-ray was done which was showed no fractures but showed moderate right knee osteoarthritis. Discharged home to follow-up with orthopedic surgeon. She followed up with pain management on . Pain management recommend MRI and plan for right leg 4/5 ROSAURA pending MRI. And prescribed gabapentin for now. Patient took gabapentin but it did not helped and stopped taking it. As Symptoms not getting better she came to the ER again today. Currently with IV pain medication pain improved. But any movement or putting weight on the leg causing the pain to come back. Denies any bowel or bladder incontinence. Denies abdominal pain. No blood in the stool or black stools. No chest pain or shortness. No nausea currently. No difficulty swallowing. Appetite is okay. No runny nose or sore throat or cough. Currently no headache. Vision is okay. Afebrile. Hemodynamics are okay. Severe low back pain started after moving heavy boxes Radiating down right leg Ambulatory dysfunction Going on for several weeks Lumbar spine CT today shows age indeterminate superior endplate compression d eformity at L4 fever chronic. Degenerative changes most prominent at L4-5 and L5-S1 Pain control Orthospine consult PT OT UTI Rocephin Follow cultures. Depression On Zoloft History of moderate aortic stenosis Monitor for volume overload Follow-up DVT prophylaxis Lovenox Disposition Medical floor Full code. History of Present Illness Chief Complaint: Severe back pain radiating to the right leg and ambulatory dysfunction Primary Care Provider: Nadir Roach MD 84-year-old female with past medical significant for mixed hyperlipidemia, moderate aortic stenosis, moderate mitral regurgitation, depression comes because of severe back pain radiating to right lower extremity and ambulatory dysfunction. Patient states back pain started after she moved heavy boxes on 09/28. Used Tylenol and Aleve without much help. She followed with PCP on 10/02 telemedicine and prescribed prednisone course. Prednisone was not helping called PCP again and lumbar spine x-ray was ordered which was done on 10/07/2024 which showed grade 1 anterolisthesis of L4 on L5. Multilevel degenerative changes of the spine noted. Baclofen as needed was ordered without much relief. She also used topical Voltaren with minimal relief. Then patient started developing severe pain down front of her right leg making ambulation difficult. She is using a cane to ambulate. She saw PCP again in the office on 10/11/24 and was prescribed diclofenac sodium 75 mg twice daily as needed. As the medicines were not helping she called PCP again and she was referred to pain management. On October 15/2024 she came to the ER as she was having difficulty ambulation because of pain. Right lower extremity Doppler was done is negative for DVT ,plan right tibia-fibula x-ray was done which was showed no fractures but showed moderate right knee osteoarthritis. Discharged home to follow-up with orthopedic surgeon. She followed up with pain management on . Pain management recommend MRI and plan for right leg 4/5 ROSAURA pending MRI. And p rescribed gabapentin for now. Patient took gabapentin but it did not helped and stopped taking it. As Symptoms not getting better she came to the ER again today. Currently with IV pain medication pain improved. But any movement or putting weight on the leg causing the pain to come back. Denies any bowel or bladder incontinence. Denies abdominal pain. No blood in the stool or black stools. No chest pain or shortness. No nausea currently. No difficulty swallowing. Appetite is okay. No runny nose or sore throat or cough. Currently no headache. Vision is okay. Afebrile. Hemodynamics are okay. Past medical history. As mentioned above Past surgical history. Colonoscopy. Ligation oviducts. Bilateral cataracts. Bilateral vein stripping. Social history. . Quit smoking 1984. Smoked 1 pack a day for 30 years. Alcohol occasional. No drug use. Family history. Maternal aunt had breast cancer in her 80s. Maternal grandmother had eye problems. Mother had eye problems. Cousin had a blindness from a tumor. Father of [place] at age 81. Allergies Allergy/AdvReac Type Severity Reaction Status Date / Time aspirin AdvReac Intermediate Upset Verified 02/19/24 13:44 stomach Home Medications Medication Instructions Recorded Confirmed Type cholecalciferol (vitamin D3) 25 25 mcg PO DAILY 01/20/23 10/21/24 History mcg (1,000 unit) tablet cyanocobalamin (vitamin B-12) 1,000 mcg PO DAILY 01/20/23 10/21/24 History 1,000 mcg tablet sertraline 100 mg tablet 200 mg PO DAILY 01/20/23 10/21/24 History melatonin 5 mg tablet 5 mg PO HS PRN Insomnia 01/21/23 10/21/24 History vitamins A,C,V-ikmd-oxpoue 2,148 1 tab PO BID 01/21/23 10/21/24 History mcg-113 mg-45 mg-17.4 mg tablet diclofenac sodium 75 mg 75 mg PO DAILY PRN Pain 10/21/24 10/21/24 History tablet,delayed release Past Med/Surg History Problem List (Updated 10/22/24 @ 01:51 by Ruben Bhandari MD) Severe low back pain DDD (degenerative disc disease), lumbar (Acute) Compression fx, lumbar spine (Acute) Acute leg pain (Acute) Collapse of right external ear canal SNHL (sensorineural hearing loss) Cerumen impaction History of vein stripping H/O cataract removal with insertion of prosthetic lens Cataract Varicose vein of leg Depression Family History Father Hearing loss Stroke Aunt Asthma FHx: allergies Other No family history of adverse response to anesthesia No family history of bleeding disorder Social History (Reviewed 10/21/24 @ 18:48 by YADY Carlson Smoking Status: Former smoker Second Hand Exposure: Yes; Do You Dip or Chew Tobacco: No; Tobacco Cessation Education Requested by Patient: No Hx Alcohol Use: Yes Hx Substance Use: No Preferred Language: Colombian Communication Ability: Effective Ear Mold Laboratory Technician Required: No Beliefs That Will Affect Care: None Current Living Situation: Spouse Other Information That Helps Us Care for You: No Feels Safe at Home: Yes Assistive Devices: Cane Review of Systems Review of Systems: All systems reviewed & are unremarkable except as noted in HPI & below Physical Exam Physical Exam: General- Not in acute distress. Head- atraumatic Eyes- PERRL. ENT- oropharynx clear Neck- supple, no JVD. Lungs- clear to auscultation no wheezing or crackles. Heart- regular rhythm; ESM murmur, no gallop. Abdomen- normal bowel sounds, soft, nontender, no distension Extremities- mild pretibial edema, no erythema seen Neuro- alert, oriented ; PERRL, no facial palsy; no dysarthria; moves extremities Musculoskeletal b/l Straight leg raise test negative Results & Data Results & Data Vital Signs (Past 12 Hours) Vital Signs Pulse Pulse Resp BP BP Pulse Ox O2 Del Method 10/21/24 22:29 74 10/21/24 22:00 73 18 138/68 98 Nasal Cannula 10/21/24 20:00 67 18 142/73 H 98 Nasal Cannula 10/21/24 18:48 97 Room Air 10/21/24 18:34 82 10/21/24 18:21 73 18 185/86 H 99 Room Air O2 Flow Rate 10/21/24 22:29 10/21/24 22:00 2 10/21/24 20:00 3 10/21/24 18:48 10/21/24 18:34 10/21/24 18:21 Diagnostic Findings Laboratory Results WBC 7.94 K/ul (4.8-10.8) 10/21/24 19:56 RBC 5.14 M/uL (4.20-5.40) 10/21/24 19:56 Hgb 14.5 g/dl (12.0-16.0) 10/21/24 19:56 Hct 43.8 % (37.0-47.0) 10/21/24 19:56 MCV 85.2 fL (80.0-100.0) 10/21/24 19:56 MCH 28.2 pg (25.0-34.0) 10/21/24 19:56 MCHC 33.1 g/dL (32.0-36.0) 10/21/24 19:56 RDW Std Deviation 41.3 fL (36.4-46.3) 10/21/24 19:56 RDW Coeff of Galdino 13.2 % (11.5-14.5) 10/21/24 19:56 Plt Count 138 K/uL (130-400) 10/21/24 19:56 MPV 9.5 fL (9.4-12.4) 10/21/24 19:56 Immature Gran % (Auto) 0.4 % 10/21/24 19:56 Neut % (Auto) 82.1 % 10/21/24 19:56 Lymph % (Auto) 9.1 % 10/21/24 19:56 Caldwell % (Auto) 7.7 % 10/21/24 19:56 Eos % (Auto) 0.6 % 10/21/24 19:56 Baso % (Auto) 0.1 % 10/21/24 19:56 Neut # (Auto) 6.52 K/uL (1.40-6.50) H 10/21/24 19:56 Lymph # (Auto) 0.72 K/uL (1.20-3.40) L 10/21/24 19:56 Caldwell # (Auto) 0.61 K/uL (0.11-0.59) H 10/21/24 19:56 Eos # (Auto) 0.05 K/uL (0.00-0.50) 10/21/24 19:56 Baso # (Auto) 0.01 K/uL (0.00-0.20) 10/21/24 19:56 Immature Gran # (Auto) 0.03 K/uL (0.01-0.20) 10/21/24 19:56 PT 10.9 Seconds (9.0-12.0) 10/21/24 19:56 INR 1.0 (0.9-1.1) 10/21/24 19:56 APTT 26 Seconds (21-31) 10/21/24 19:56 PTT Ratio 1.0 10/21/24 19:56 Sodium 138 mmol/L (136-145) 10/21/24 19:56 Potassium 4.2 mmol/L (3.5-5.1) 10/21/24 19:56 Chloride 104 mmol/L (98-107) 10/21/24 19:56 Carbon Dioxide 28 mmol/L (21-32) 10/21/24 19:56 Anion Gap 6 (3-11) 10/21/24 19:56 BUN 18 mg/dl (6-23) 10/21/24 19:56 Creatinine 0.79 mg/dl (0.6-1.2) 10/21/24 19:56 Est Cr Clr Drug Dosing 57.8 ml/min 10/21/24 19:56 eGFR 72.80 10/21/24 19:56 BUN/Creatinine Ratio 22.8 (10-20) H 10/21/24 19:56 Glucose 122 mg/dl (70-99(Fasting)) H 10/21/24 19:56 Calcium 9.8 mg/dl (8.6-10.3) 10/21/24 19:56 Total Bilirubin 1.2 mg/dl (0.2-1.0) H 10/21/24 19:56 AST 35 U/L (13-39) 10/21/24 19:56 ALT 37 U/L (7-52) 10/21/24 19:56 Alkaline Phosphatase 84 U/L (34-104) 10/21/24 19:56 Troponin I High Sens 15.4 pg/ml (0-14) H 10/21/24 19:56 Total Protein 7.5 gm/dl (6.0-8.3) 10/21/24 19:56 Albumin 4.0 gm/dl (3.4-5.0) 10/21/24 19:56 Globulin 3.5 gm/dl (2.5-4.0) 10/21/24 19:56 Albumin/Globulin Ratio 1.1 (0.9-2) 10/21/24 19:56 Lipase 24 U/L (11-82) 10/21/24 19:56 Urine Color Dark Yellow 10/21/24 22:42 Urine Appearance Clear (Clear) 10/21/24 22:42 Urine pH 5.5 (4.5-7.5) 10/21/24 22:42 Ur Specific [place] 1.024 (1.000-1.030) 10/21/24 22:42 Urine Protein Negative (Negative) 10/21/24 22:42 Urine Glucose (UA) Negative (Negative) 10/21/24 22:42 Urine Ketones Trace (Negative) H 10/21/24 22:42 Urine Blood Trace (Negative) H 10/21/24 22:42 Urine Nitrite Positive (Negative) A 10/21/24 22:42 Urine Bilirubin Negative (Negative) 10/21/24 22:42 Urine Urobilinogen Negative (Negative) 10/21/24 22:42 Ur Leukocyte Esterase 1+ (Negative) H 10/21/24 22:42 Urine WBC (Auto) 0-5 /hpf (0-5) 10/21/24 22:42 Urine RBC (Auto) 0-2 /hpf (0-2) 10/21/24 22:42 U Hyaline Cast (Auto) 3-5 /lpf (0-2) H 10/21/24 22:42 U Epithel Cells (Auto) 3-5 /hpf (0-2) H 10/21/24 22:42 Urine Bacteria (Auto) 4+ (None Seen) H 10/21/24 22:42 Impressions Abdomen/Pelvis CT 10/21/24 18:39 Exam(s): CT ABDOMEN + PELVIS Without Contrast EXAM: CT Abdomen and Pelvis Without Intravenous Contrast CLINICAL HISTORY: Reason for exam: right flank pain. TECHNIQUE: Axial computed tomography images of the abdomen and pelvis without intravenous contrast. CTDI is 27.2 mGy and DLP is 1307.45 mGy-cm. Automated exposure control was utilized for the study. A dose lowering technique was utilized adhering to the principles of ALARA. COMPARISON: No relevant prior studies available. FINDINGS: ABDOMEN: Liver: Cyst in the left hepatic lobe measuring 1.5 cm. Gallbladder and bile ducts: Unremarkable. Pancreas: Unremarkable. Spleen: Mild splenomegaly. Adrenals: Unremarkable. Kidneys and ureters: No ureteral stone or obstructive uropathy. Stomach and bowel: Colonic diverticulosis. PELVIS: Appendix: No findings to suggest acute appendicitis. Bladder: Unremarkable. Reproductive: Unremarkable as visualized. ABDOMEN and PELVIS: Intraperitoneal space: Unremarkable. No free air. No significant fluid collection. Bones/joints: No acute fracture. Soft tissues: Unremarkable. Vasculature: Aortobiiliac atherosclerosis. Lymph nodes: Unremarkable. IMPRESSION: 1. No ureteral stone or obstructive uropathy. 2. Colonic diverticulosis. 3. Mild splenomegaly. Electronically signed by: Reilly Mccrary MD 10/21/24 21:[address] 10/21/24 18:39 Exam(s): CT L SPINE EXAM: CT Lumbar Spine Without Intravenous Contrast CLINICAL HISTORY: Reason for exam: right sided pain. TECHNIQUE: Axial computed tomography images of the lumbar spine without intravenous contrast. CTDI is 27.2 mGy and DLP is 1307.45 mGy-cm. Automated exposure control was utilized for the study. A dose lowering technique was utilized adhering to the principles of ALARA. COMPARISON: No relevant prior studies available. FINDINGS: Vertebrae: Age indeterminate superior endplate compression deformity at L5. Bones are osteopenic which limits evaluation for acute nondisplaced fracture trace anterolisthesis at L4-5. Discs/spinal canal/neural foramina: Degenerative disc disease most pronounced at L4-5 and L5-S1. No significant canal stenosis. Moderate bilateral foraminal stenosis. Soft tissues: Unremarkable. IMPRESSION: 1. Age indeterminate superior endplate compression deformity at L5, favored chronic. 2. Degenerative changes most pronounced at L4-5 and L5-S1. Electronically signed by: Reilly Mccrary MD 10/21/24 21:43 PM ECG Additional Comments: ECG normal sinus rhythm rate with sinus rhythm rate of 78. Left axis deviation. QTc 412 Code Status & VTE Plan VTE Prophylaxis Plan VTE Prophylaxis will be ordered: Yes
[2024-10-22] MEDS ORDERED: ACETAMINOPHEN 325 MG TAB PO PRN (02:41)
[2024-10-22] MEDS ORDERED: POLYETHYLENE (MIRALAX) 17 GM PACK PO PRN (02:41)
[2024-10-22] MEDS ORDERED: MELATONIN 3 MG TAB PO PRN (02:45)
[2024-10-22] MEDS: SODIUM CHLORIDE 0.9% 1,000 ML IV SCH (04:43)
[2024-10-22] MEDS: oxyCODONE HCL IR 5 MG TAB (IMMEDIATE RELEASE) PO PRN (05:00)
[2024-10-22] MEDS: HYDROmorphone INJ 0.5 MG/0.5 ML SYR IV PRN (06:21)
[2024-10-22] MEDS: ENOXAPARIN INJ 40 MG/0.4 ML SYR SQ SCH (06:25)
[2024-10-22] MEDS: CEROVITE ADV FORMULA TAB PO SCH (08:42)
[2024-10-22] MEDS: CHOLECALCIFEROL 25 MCG (1000 UNITS) TAB PO SCH (08:42)
[2024-10-22] MEDS: SERTRALINE HCL 100 MG TABLET PO SCH (08:42)
[2024-10-22] MEDS: CYANOCOBALAMIN (B-12) 500 MCG TABLET PO SCH (08:42)
[2024-10-22 09:14] LABS: Calcium 9.1 mg/dl (8.6-10.3); Magnesium 1.7 mg/dl (1.7-2.4); Potassium 4.2 mmol/L (3.5-5.1)
[2024-10-22 09:19] LABS: BUN Creatinine Ratio 23.3 (10-20); Creatinine Clr Calc Pharmacy 62.5 ml/min
[2024-10-22 09:32] LABS: Basophils # (auto) 0.01 K/uL (0.00-0.20); Basophils % (auto) 0.1 %; Eosinophils # (auto) 0.17 K/uL (0.00-0.50); Eosinophils % (auto) 2.5 %; Hematocrit (blood only) 40.7 % (37.0-47.0); Hemoglobin 13.1 g/dl (12.0-16.0); Immature Granulocytes # (auto) 0.03 K/uL (0.01-0.20); Immature Granulocytes % (auto) 0.4 %; Lymphocytes # (auto) 1.47 K/uL (1.20-3.40); Lymphocytes % (auto) 21.2 %; Mean Corpuscular Hemoglobin 28.4 pg (25.0-34.0); Mean Corpuscular Hgb Conc 32.2 g/dL (32.0-36.0); Mean Corpuscular Volume 88.3 fL (80.0-100.0); Mean Platelet Volume 10.3 fL (9.4-12.4); Monocytes # (auto) 0.74 K/uL (0.11-0.59); Monocytes % (auto) 10.7 %; Neutrophils # (auto) 4.51 K/uL (1.40-6.50); Neutrophils % (auto) 65.1 %; Platelet Count 119 K/uL (130-400); RDW Coefficient of Variation 13.5 % (11.5-14.5); RDW Standard Deviation 43.3 fL (36.4-46.3); Red Blood Count 4.61 M/uL (4.20-5.40); White Blood Count 6.93 K/ul (4.8-10.8)
--- NOTE | 2024-10-22 13:55 | Communication Note ---
Date of Service: October 22, 2024 Patient was seen and examined at bedside. 84 yo F w/ PMH of mixed hyperlipidemia, moderate aortic stenosis, moderate mitral regurgitation, depression comes because of severe back pain radiating to right lower extremity and ambulatory dysfunction. Patient states back pain started after she moved heavy boxes on 09/28. Before presentation, she tried Tylenol, Aleve; prednisone course and prescription of her PCP with no relief. She also visited ED in October 15, was discharged with pain medication with the recommendation to follow-up with orthopedic surgeon. She followed up with pain management on 10/19 and prescribed gabapentin. Since nothing helped, she presented to the ED again. She denied any bowel or bladder incontinence. She denied any febrile illness. She is being managed for the following: Severe low back pain: Severe low back pain started after moving heavy boxes, see above. RLE radicular s/s +nt, no incontinence, no fever. Ambulatory dysfunction affecting her ADLs. Going on for several weeks Admitting Lumbar spine CT - age indeterminate superior endplate compression deformity at L4 fever chronic. Degenerative changes most prominent at L4-5 and L5-S1 Pain control Orthospine consult PT OT UTI: continue Rocephin 10/22. Follow cultures. HO Depression: c/w home Zoloft History of moderate aortic stenosis: Monitor for volume overload DVT prophylaxis: Lovenox Disposition: Medical floor Full code. For detailed information on the patient, refer to today's H&P note.
--- NOTE | 2024-10-22 15:45 | Electrocardiogram Report ---
Test Reason : Blood Pressure : */* mmHG Vent. Rate : 78 BPM Atrial Rate : 78 BPM P-R Int : 144 ms QRS Dur : 82 ms QT Int : 362 ms P-R-T Axes : 69 -31 60 degrees QTcB Int : 412 ms Normal sinus rhythm with sinus arrhythmia Left axis deviation Poor R wave progression, consider anterior NJ vs. lead placement vs. LVH Abnormal ECG When compared with ECG of 20-Jan-2023 23:38, Premature atrial complexes are no longer Present Confirmed by Ibrahima Hays ([id number]) on 10/22/2024 3:45:18 PM Referred By: Jose A Pierce Confirmed By: Ibrahima Hays
[2024-10-22] MEDS: KETOROLAC TROMETHAMINE 15 MG/ML VIAL IV ONE (18:17)
--- NOTE | 2024-10-22 18:41 | Magnetic Resonance Report ---
EXAM: MR lumbar spine wo con CLINICAL HISTORY: NO HX CANCER NO PREV. LUMBAR SURG NKI PAIN RADIATES DOWN RIGHT LEG X 1 WEEK RIGHT LEG ''GIVES OUT'' DIFFICULTY AMBULATING NO LOW BACK PAIN BEST SCANS AT THIS TIME DUE TO MUSCLE SPASMS TECHNIQUE: Different pulse sequences were performed in different planes for the lumbar spine without contrast. Images were sent through PACs for diagnostic interpretation. COMPARISON: None. FINDINGS: Dextroconvex degenerative scoliosis. The Griffith Lippmann's angle measures 12.2. The scanned intervertebral discs show variable degrees of degeneration denoted by low signal intensity on T2 WI with a relative reduction of their heights. Marginal osteophytes are seen.Multiple radial, concentric, and transverse annular fissures are seen. A relative anterior wedging of the L5 vertebral body suggests remote posttraumatic sequelae, e.g., compression flexion injury. (The height difference between the anterior and posterior vertebral margins 3 mm). Osseous hemangiomata Modic I and II marrow changes are seen, with no other remarkable marrow changes. Wide zones of bone marrow edema are seen at the L4 and L5 vertebrae, suggesting septic/aseptic spondylitis. Detailed laboratory correlation and follow-up are recommended as appropriate. Maintained Other vertebral heights with intact vertebral bodies and neural arches. Degenerative spondylolisthesis is seen at the L4-L5 level, measuring 4.2 mm. Degenerative retrolisthesis is seen at the L5-S1 level, measuring 3.6 mm. Posteriorly oriented orthostatic subcutaneous edema is seen opposite the lumbar vertebrae, exhibiting low signals on T1 WI and bright signals on T2 on STIRWI. Multiple Schmorl's nodes are seen at the vertebral end plates. Level by Level analysis: T12-L1: There is no focal disc pathology, spinal canal stenosis, or neural foraminal stenosis. L1-L2: There is a 2.5 mm annular bulge and 3.6 mm right central and subarticular herniation indenting the thecal sac, compromising the subarticular recesses more on the right side with impingement of the emerging nerve roots. no spinal canal stenosis or neural foraminal stenosis.Buckled ligamenta flava and arthropathic facet joints augment effects. L2-L3:There are 3.2 mm subarticular herniations compromising subarticular recesses and neural foramina with impingement of the emerging nerve roots. Buckled ligamenta flava and arthropathic facet joints augment effects. L3-L4: There is a 2.9 mm annular bulge indenting the thecal sac, compromising subarticular recesses with mild bilateral neural foraminal stenosis with impingement of the emerging nerve roots. Buckled ligamenta flava and arthropathic facet joints augment effects. L4-L5: There is a 3.1 mm annular bulge and 4.2 mm central herniation indenting the thecal sac, compromising the subarticular recesses. There is mild spinal canal stenosis and moderate bilateral neural foraminal stenosis with impingement of the emerging nerve roots. Degenerative spondylolisthesis buckled ligamenta flava and arthropathic facet joints augment effects. L5-S1: There is a 3.1 mm annular bulge indenting the theal sac, compromising the subarticular recesses with mild bilateral neural foraminal stenosis with impingement of the emerging nerve roots. Degenerative retrolisthesis buckled ligamenta flava and arthropathic facet joints augment effects. The lower dorsal spinal cord, conus medullaris, and cauda equina nerve roots are unremarkable. Paravertebral soft tissue is unremarkable. No developmental canal stenosis. IMPRESSION: 1. Spondylodegenerative lumbar disc disease. 2. Dextroconvex degenerative scoliosis. The Griffith Lippmann's angle measures 12.2. 3. Osseous hemangioma, Modic I, and II marrow changes. Wide zones of bone marrow edema are seen at the L4 and L5 vertebrae, suggesting septic/aseptic spondylitis. Detailed laboratory correlation and follow-up are recommended as appropriate. 4. Degenerative spondylolisthesis is seen at the L4-L5 level, measuring 4.2 mm. 5. Degenerative retrolisthesis is seen at the L5-S1 level, measuring 3.6 mm. 6. Posteriorly oriented orthostatic subcutaneous edema is seen opposite the lumbar vertebrae, exhibiting low signals on T1 WI and bright signals on T2 on STIRWI. 7. Multiple Schmorl's nodes are seen at the vertebral end plates. 8. L1-L2: There is a 2.5 mm annular bulge and 3.6 mm right central and subarticular herniation. 9. L2-L3:There are 3.2 mm subarticular herniations. 10. L3-L4: There is a 2.9 mm annular bulge. 11. L4-L5: There is a 3.1 mm annular bulge and 4.2 mm central herniation. 12. L5-S1: There is a 3.1 mm annular bulge. 13. Multilevel lumbar disc pathologies at the L1-L2 through the L5-S1 levels with effects exerted upon the spinal canal, subarticular recesses, and neural foramina with impingement of the emerging nerve roots. Degenerative spondylolisthesis, retrolisthesis, buckled ligamenta flava, and arthropathic facet joints augment effects. Findings are most appreciated at the L4-L5 level. 14. The reported findings explain the current clinical status. Electronically signed by Esau Rodriguez 10-22-2024 6:39 PM
[2024-10-22] MEDS: LIDOCAINE 5% 1 PATCH TD SCH (19:06)
[2024-10-22] MEDS: ACETAMINOPHEN 325 MG TAB PO SCH (20:32)
[2024-10-22] MEDS: DOCUSATE SODIUM 100 MG CAP PO SCH (20:32)
[2024-10-22] MEDS ORDERED: cefTRIAXone SODIUM 2,000 MG/50 ML BAG IV SCH (23:30)
[2024-10-23] MEDS: cefTRIAXone SODIUM 2,000 MG/50 ML BAG IV SCH (00:08)
[2024-10-23 07:48] LABS: Hematocrit (blood only) 36.3 % (37.0-47.0); Hemoglobin 11.9 g/dl (12.0-16.0); Mean Corpuscular Hemoglobin 28.3 pg (25.0-34.0); Mean Corpuscular Hgb Conc 32.8 g/dL (32.0-36.0); Mean Corpuscular Volume 86.2 fL (80.0-100.0); Mean Platelet Volume 10.2 fL (9.4-12.4); Platelet Count 128 K/uL (130-400); RDW Coefficient of Variation 13.3 % (11.5-14.5); RDW Standard Deviation 42.2 fL (36.4-46.3); Red Blood Count 4.21 M/uL (4.20-5.40); White Blood Count 5.84 K/ul (4.8-10.8)
[2024-10-23 08:09] LABS: BUN Creatinine Ratio 23.4 (10-20); Calcium 8.8 mg/dl (8.6-10.3); Creatinine Clr Calc Pharmacy 59.3 ml/min; Magnesium 1.6 mg/dl (1.7-2.4); Phosphorus 3.7 mg/dl (2.5-4.9); Potassium 4.2 mmol/L (3.5-5.1)
--- NOTE | 2024-10-23 09:37 | Orthopedic Consultation ---
Date of Consultation October 23, 2024 Assessment & Plan (1) Lumbosacral spondylosis with radiculopathy: MRI of the lumbar spine and CAT scan available for review. She has evidence of significant vacuum phenomenon L4-5 the facet hypertrophy on the CAT scan. The MRI demonstrates evidence of facet overgrowth foraminal disc protrusion L4-L5 on the right. Plan at this time would like to obtain standing x-rays lumbar spine to thoroughly assess the spondylolisthesis L4-5. I suspect there is considerabl e motion at this level. She may be experiencing radiculopathy from the instability neural compression of the lumbar spine manifested with pain in the right tibia. This would be concordant with worsening pain with standing and walking. We may consider a diagnostic therapeutic L4-L5 transforaminal injection. Ultimately if she fails to improve we may have to consider surgical invention. Would require a lumbar decompression and fusion at L4-L5. History of Present Illness Reason for Consultation: Right leg pain Attending Physician: Merline Ro MD History of Present Illness This is a very pleasant 84-year-old female that is had a history of some back pain in the recent past but now struggling with mostly right lower extremity pain. The pain is in the right anterior tibia. Does not extend into the foot. Left lower extremities asymptomatic. Standing walking markedly exacerbate her pain. She obtained some relief in bed with ice on the right anterior tibia. She denies any buttock discomfort. Denies any thigh pain. Allergies Allergy/AdvReac Type Severity Reaction Status Date / Time aspirin AdvReac Intermediate Upset Verified 02/19/24 13:44 stomach Home Medications Medication Instructions Recorded Confirmed Type cholecalciferol (vitamin D3) 25 25 mcg PO DAILY 01/20/23 10/21/24 History mcg (1,000 unit) tablet cyanocobalamin (vitamin B-12) 1,000 mcg PO DAILY 01/20/23 10/21/24 History 1,000 mcg tablet sertraline 100 mg tablet 200 mg PO DAILY 01/20/23 10/21/24 History melatonin 5 mg tablet 5 mg PO HS PRN Insomnia 01/21/23 10/21/24 History vitamins A,C,V-ccmr-agxhsg 2,148 1 tab PO BID 01/21/23 10/21/24 History mcg-113 mg-45 mg-17.4 mg tablet diclofenac sodium 75 mg 75 mg PO DAILY PRN Pain 10/21/24 10/21/24 History tablet,delayed release Patient History Family History Father Hearing loss Stroke Aunt Asthma FHx: allergies Other No family history of adverse response to anesthesia No family history of bleeding disorder Social History Smoking Status: Former smoker Second Hand Exposure: Yes; Do You Dip or Chew Tobacco: No; Tobacco Cessation Education Requested by Patient: No Hx Alcohol Use: Yes Hx Substance Use: No Preferred Language: Slovak Communication Ability: Effective Bottle Washer Machine Required: No Beliefs That Will Affect Care: None Current Living Situation: Spouse Other Information That Helps Us Care for You: No Feels Safe at Home: Yes Assistive Devices: Cane Physical Exam Physical Exam: On exam she has full sensation to cold and light touch to lower extremities. She has reasonable plantarflexion dorsiflexion quadriceps. She has difficulty with straight leg raise on the right. Tolerable on the left. Deep tendon reflexes diminished. She is superficially tender to palpation of the right lower extremity. He did not appreciate any rash or abnormal skin markings. She does have known pre-existing peripheral edema. Results & Data Vital Signs (Past 12 Hours) Vital Signs Temp Pulse Resp BP Pulse Ox O2 Del Method 10/23/24 08:06 36.6 C 67 16 127/69 95 Room Air 10/23/24 07:57 36.9 C 76 16 113/61 94 Room Air
[2024-10-23] MEDS: MAGNESIUM SULFATE / D5W 1 GM/100 ML BAG IV SCH (09:51)
--- NOTE | 2024-10-23 11:11 | XRay Report ---
XR lumbar spine 2-3V CLINICAL HISTORY: standing views TECHNIQUE: 3 views of the lumbar spine were obtained. Comparison: None available at the time of this dictation. FINDINGS: There is no evidence of an acute fracture. Degenerative changes are seen in the lumbar spine with ost eophyte formation and disc space narrowing. Grade 1 anterolisthesis is seen at L4-L5. Vascular calcif ications are noted. IMPRESSION: Degenerative changes as above without acute fracture or subluxation. ACT 112: Negative or not required by law. Electronically signed by: Uzair Reed M.D. 10/23/2024 11:08 AM
[2024-10-23] MEDS: oxyCODONE HCL IR 5 MG TAB (IMMEDIATE RELEASE) PO PRN (12:10)
[2024-10-23] MEDS: LIDOCAINE 5% 1 PATCH TD STA (12:10)
--- NOTE | 2024-10-23 12:14 | Pain Management Consultation ---
Date of Consultation October 23, 2024 Assessment & Plan (1) Lumbosacral spondylosis with radiculopathy: (2) Severe low back pain: Plan 1. Discussed the patient's MRI results with her in detail and answered all of her questions. Suspect right anterior tibial pain to be secondary to lumbar radiculopathy given moderate neuroforaminal stenosis at right L4-5. Ideally she would be an excellent candidate for a right L4-5 transforaminal epidural steroid however in light of her urinary tract infection requiring IV ceftriaxone will hold at this time and have her scheduled as an outpatient. We discussed her returning to [facility] for injection but she states this is scheduled in December and wishes to be seen at [facility]'s pain management instead. Will work with my office to facilitate her appointment once she has been off antibiotics for 2 weeks for her urinary tract infection. All questions regarding this were answered. 2. In the meantime, recommend utilization of Lidoderm patch, initiation of gabapentin 300 mg p.o. twice daily and continuation of oxycodone 5 mg p.o. every 4 as needed pain. 3. Agree with PT consult as an outpatient once she is able to participate. 4. Thank you for this consultation we will see her back in follow-up in our office. History of Present Illness Attending Physician: Merline Ro MD History of Present Illness 84-year-old female who was moving heavy boxes on 09/28/2024 and experience severe low back pain at her lumbosacral junction radiating to her right anterior tibia in an L4 distribution. She reports significant ambulatory dysfunction secondary to pain. She reports she has been working with her primary care physician and has utilized oral steroids, baclofen, Voltaren gel, tramadol, rest, heat, ice without benefit. DVT was ruled out with a right lower extremity Doppler. She reports she was referred to [facility] pain management who she saw on 10/19/2024 and ordered an MRI and prescribed her low-dose gabapentin. She reports gabapentin was not effective for minimizing her pain and discontinued it. She reports that her MRI as an outpatient was supposed to be scheduled in October 2024 but her pain symptoms worsened and presented to the [facility] emergency room on 10/22/2024. She reports pain ranges between 8- 10 out of 10 sharp stabbing burning somewhat improved with ice. She denies bowel or bladder incontinence, motor weakness, foot drop, fever, chills, night sweats. She does report her ambulatory dysfunction is significant secondary to pain. She reports some difficulty with sleep secondary to pain. She has not previously received any interventional pain management. Other comorbidities include current urinary tract infection necessitating IV ceftriaxone. Pain Assessment Full Body Front + Back: 2 1. 2. [facility] Combined Pain Scale: 8-Debilitating - Impairs activity. Can't maintain a conversation. Pain scale - at its best (0-10): 8 Pain scale - at its worst (0-10): 10 Allergies Allergy/AdvReac Type Severity Reaction Status Date / Time aspirin AdvReac Intermediate Upset Verified 02/19/24 13:44 stomach Home Medications Medication Instructions Recorded Confirmed Type cholecalciferol (vitamin D3) 25 25 mcg PO DAILY 01/20/23 10/21/24 History mcg (1,000 unit) tablet cyanocobalamin (vitamin B-12) 1,000 mcg PO DAILY 01/20/23 10/21/24 History 1,000 mcg tablet sertraline 100 mg tablet 200 mg PO DAILY 01/20/23 10/21/24 History melatonin 5 mg tablet 5 mg PO HS PRN Insomnia 01/21/23 10/21/24 History vitamins A,C,A-mpwy-nhqkak 2,148 1 tab PO BID 01/21/23 10/21/24 History mcg-113 mg-45 mg-17.4 mg tablet diclofenac sodium 75 mg 75 mg PO DAILY PRN Pain 10/21/24 10/21/24 History tablet,delayed release Pain History Pain Intensity Pain scale - at its best (0-10): 8 Pain scale - at its worst (0-10): 10 Patient History Medical History (Updated 10/23/24 @ 12:11 by Jo Bailey DO) Hyperlipidemia Moderate mitral regurgitation Moderate aortic stenosis DDD (degenerative disc disease), lumbar Collapse of right external ear canal SNHL (sensorineural hearing loss) Cerumen impaction Cataract Varicose vein of leg Depression Surgical History (Updated 10/23/24 @ 12:03 by Jo Bailey DO) History of vein stripping H/O cataract removal with insertion of prosthetic lens Family History Father Hearing loss Stroke Aunt Asthma FHx: allergies Other No family history of adverse response to anesthesia No family history of bleeding disorder Social History Smoking Status: Former smoker Second Hand Exposure: Yes; Do You Dip or Chew Tobacco: No; Tobacco Cessation Education Requested by Patient: No Hx Alcohol Use: Yes Hx Substance Use: No Preferred Language: Telugu Communication Ability: Effective Palliative Medicine Physician Required: No Beliefs That Will Affect Care: None Current Living Situation: Spouse Other Information That Helps Us Care for You: No Feels Safe at Home: Yes Assistive Devices: Cane Physical Exam 2 Physical Exam: Constitutional: Well-developed, well-nourished, healthy-appearing, normal weight Psych: Awake, alert, and oriented 3 with normal affect and mood. Recent memory appears grossly intact, resting comfortably on examination Eyes: Pupils are equally round and reactive to light with normal size pupils, eyelids appear normal Ear, nose, mouth, and throat: Moist nasal and oral membranes, lips and tongues appear normal, no external ear abnormalities are noted Neck: The trachea is midline without deviation and no thyromegaly is noted Respiratory: Normal respiratory effort without distress, no audible wheezes or rhonchi CV: Normal S1 and S2, warm distal extremities with mild peripheral edema noted Chest: Deferred GI/abdomen: Non-tender without guarding, soft Musculoskeletal: Head is normocephalic and atraumatic, gait not observed. Cervical: Lordotic curve: Normal Range of motion is normal with extension, flexion, side-bending, rotation Strength: Strength is equal bilaterally with 5 out of 5 strength in all planes Lumbar: Lordotic curve: Loss of lumbar the doses Range of motion is decreased in all planes secondary to pain Tenderness: Moderately tender over the axial midline predominant right L4-S1 Facet provocation: Marginally positive bilaterally Straight leg raise: Negative left positive right worse with Achilles stretch Step-off injuries: None Strength: Strength is equal bilaterally with 5 out of 5 strength in all planes, patient has 5 out of 5 right quadriceps but difficult to test secondary to pain Sensation of lower extremities: Intact bilaterally Deep tendon reflexes: Rated at 1+ in bilateral L4 and S1 Myofascial spasm: Mild lumbar spasm. No discrete trigger points noted Greater trochanters: Nontender bilaterally Sacroiliac joints: Nontender bilaterally Pathologic reflexes noted: None Skin: No rashes, lesions, ulcers, or induration noted Neuro: No nystagmus noted, the tongue is midline, the patient is able to rotate their head bilaterally : Deferred Results (Pain Clinic) Laboratory Review Laboratory results: personally reviewed by me and pertinent findings noted below Additional Comments: Positive urine culture for E. coli UTI currently on IV ceftriaxone Diagnostic Review MRI: non enhanced, reports reviewed, images reviewed and findings discussed with patient MRI Findings: 10/22/24 lumbar spine MRI without contrast ADDENDUM Addendum Report EXAM: MR lumbar spine wo con ADDENDUM: [facility] ER was called at [phone] at 08:10 PM [employer]ER, 10/22/2024, and Yanely Meek Helix confirmed that they had received the results Electronically signed by Esau Rodriguez 10-22-2024 6:39 PM ADDENDUM END EXAM: MR lumbar spine wo con CLINICAL HISTORY: NO HX CANCER NO PREV. LUMBAR SURG NKI PAIN RADIATES DOWN RIGHT LEG X 1 WEEK RIGHT LEG ''GIVES OUT'' DIFFICULTY AMBULATING NO LOW BACK PAIN BEST SCANS AT THIS TIME DUE TO MUSCLE SPASMS TECHNIQUE: Different pulse sequences were performed in different planes for the lumbar spine without contrast. Images were sent through PACs for diagnostic interpretation. COMPARISON: None. FINDINGS: Dextroconvex degenerative scoliosis. The Griffith Lippmann's angle measures 12.2. The scanned intervertebral discs show variable degrees of degeneration denoted by low signal intensity on T2 WI with a relative reduction of their heights. Marginal osteophytes are seen.Multiple radial, concentric, and transverse annular fissures are seen. A relative anterior wedging of the L5 vertebral body suggests remote posttraumatic sequelae, e.g., compression flexion injury. (The height difference between the anterior and posterior vertebral margins 3 mm). Osseous hemangiomata Modic I and II marrow changes are seen, with no other remarkable marrow changes. Wide zones of bone marrow edema are seen at the L4 and L5 vertebrae, suggesting septic/aseptic spondylitis. Detailed laboratory correlation and follow-up are recommended as appropriate. Maintained Other vertebral heights with intact vertebral bodies and neural arches. Degenerative spondylolisthesis is seen at the L4-L5 level, measuring 4.2 mm. Degenerative retrolisthesis is seen at the L5-S1 level, measuring 3.6 mm. Posteriorly oriented orthostatic subcutaneous edema is seen opposite the lumbar vertebrae, exhibiting low signals on T1 WI and bright signals on T2 on STIRWI. Multiple Schmorl's nodes are seen at the vertebral end plates. Level by Level analysis: T12-L1: There is no focal disc pathology, spinal canal stenosis, or neural foraminal stenosis. L1-L2: There is a 2.5 mm annular bulge and 3.6 mm right central and subarticular herniation indenting the thecal sac, compromising the subarticular recesses more on the right side with impingement of the emerging nerve roots. no spinal canal stenosis or neural foraminal stenosis.Buckled ligamenta flava and arthropathic facet joints augment effects. L2-L3:There are 3.2 mm subarticular herniations compromising subarticular recesses and neural foramina with impingement of the emerging nerve roots. Buckled ligamenta flava and arthropathic facet joints augment effects. L3-L4: There is a 2.9 mm annular bulge indenting the thecal sac, compromising subarticular recesses with mild bilateral neural foraminal stenosis with impingement of the emerging nerve roots. Buckled ligamenta flava and arthropathic facet joints augment effects. L4-L5: There is a 3.1 mm annular bulge and 4.2 mm central herniation indenting the thecal sac, compromising the subarticular recesses. There is mild spinal canal stenosis and moderate bilateral neural foraminal stenosis with impingement of the emerging nerve roots. Degenerative spondylolisthesis buckled ligamenta flava and arthropathic facet joints augment effects. L5-S1: There is a 3.1 mm annular bulge indenting the theal sac, compromising the subarticular recesses with mild bilateral neural foraminal stenosis with impingement of the emerging nerve roots. Degenerative retrolisthesis buckled ligamenta flava and arthropathic facet joints augment effects. The lower dorsal spinal cord, conus medullaris, and cauda equina nerve roots are unremarkable. Paravertebral soft tissue is unremarkable. No developmental canal stenosis. IMPRESSION: 1. Spondylodegenerative lumbar disc disease. 2. Dextroconvex degenerative scoliosis. The Griffith Lippmann's angle measures 12.2. 3. Osseous hemangioma, Modic I, and II marrow changes. Wide zones of bone marrow edema are seen at the L4 and L5 vertebrae, suggesting septic/aseptic spondylitis. Detailed laboratory correlation and follow-up are recommended as appropriate. 4. Degenerative spondylolisthesis is seen at the L4-L5 level, measuring 4.2 mm. 5. Degenerative retrolisthesis is seen at the L5-S1 level, measuring 3.6 mm. 6. Posteriorly oriented orthostatic subcutaneous edema is seen opposite the lumbar vertebrae, exhibiting low signals on T1 WI and bright signals on T2 on STIRWI. 7. Multiple Schmorl's nodes are seen at the vertebral end plates. 8. L1-L2: There is a 2.5 mm annular bulge and 3.6 mm right central and subarticular herniation. 9. L2-L3:There are 3.2 mm subarticular herniations. 10. L3-L4: There is a 2.9 mm annular bulge. 11. L4-L5: There is a 3.1 mm annular bulge and 4.2 mm central herniation. 12. L5-S1: There is a 3.1 mm annular bulge. 13. Multilevel lumbar disc pathologies at the L1-L2 through the L5-S1 levels with effects exerted upon the spinal canal, subarticular recesses, and neural foramina with impingement of the emerging nerve roots. Degenerative spondylolisthesis, retrolisthesis, buckled ligamenta flava, and arthropathic facet joints augment effects. Findings are most appreciated at the L4-L5 level. 14. The reported findings explain the current clinical status. Radiology: reports reviewed and findings discussed with patient Radiology Findings: 10/23/24 XR lumbar spine 2-3V CLINICAL HISTORY: standing views TECHNIQUE: 3 views of the lumbar spine were obtained. Comparison: None available at the time of this dictation. FINDINGS: There is no evidence of an acute fracture. Degenerative changes are seen in the lumbar spine with osteophyte formation and disc space narrowing. Grade 1 anterolisthesis is seen at L4-L5. Vascular calcifications are noted. IMPRESSION: Degenerative changes as above without acute fracture or subluxation. Previous Records Review Previous Records: personally reviewed by me
[2024-10-23] MEDS: GABAPENTIN 300 MG CAP PO SCH (12:59)
--- NOTE | 2024-10-23 15:00 | Hospitalist Progress Note ---
Date of Service October 23, 2024 Assessment & Plan (1) Severe low back pain: Plan: 84 yo F w/ PMH of mixed hyperlipidemia, moderate aortic stenosis, moderate mitral regurgitation, depression comes because of severe back pain radiating to right lower extremity and ambulatory dysfunction. Patient states back pain started after she moved heavy boxes on 09/28. Before presentation, she tried Tylenol, Aleve; prednisone course and prescription of her PCP with no relief. She also visited ED in October 15, was discharged with pain medication with the recommendation to follow-up with orthopedic surgeon. She followed up with pain management on 10/19 and prescribed gabapentin. Since nothing helped, she presented to the ED again. She denied any bowel or bladder incontinence. She denied any febrile illness. She is being managed for the following: Severe low back pain: Severe low back pain started after moving heavy boxes, see above. RLE radicular s/s +nt, no incontinence, no fever. Ambulatory dysfunction affecting her ADLs. Going on for several weeks Admitting Lumbar spine CT - age indeterminate superior endplate compression deformity at L4 fever chronic. Degenerative changes most prominent at L4-5 and L5-S1 Lumbar spine MRI 10/22 and XR 10/23 reviewed. Pain management on board, plan for L4-5 epidural injection as OP (2 wks after atb therapy). [facility] following PT OT , will likely need rehab. UTI: continue Rocephin 10/22. Follow c/s, e coli noted. HO Depression: c/w home Zoloft History of moderate aortic stenosis: Monitor for volume overload DVT prophylaxis: Lovenox Disposition: Medical floor Full code. Admission and Anticipated Discharge Date Admission Date: October 22, 2024 Subjective Patient was seen and examined at bedside. Patient was lying in bed, on room air, NAD. Patient reports pain under control while at rest, increased right lower extremity pain with activity. Patient is eating okay and moving bowels okay. Patient denies any sore throat or fever or chills. Physical Exam Physical Exam: General- Not in acute distress. Obese class II. Head- atraumatic Eyes- PERRL. ENT- oropharynx clear Neck- supple, no JVD. Lungs- clear to auscultation no wheezing or crackles. Heart- regular rhythm; ESM murmur, no gallop. Abdomen- normal bowel sounds, soft, nontender, no distension Extremities- mild pretibial edema, no erythema seen Neuro- alert, oriented ; PERRL, no facial palsy; no dysarthria; moves extremities Musculoskeletal b/l Straight leg raise test negative Results & Data Results & Data Vital Signs (Past 12 Hours) Vital Signs Temp Pulse Resp BP Pulse Ox O2 Del Method 10/23/24 14:32 36.7 C 72 16 136/63 93 Room Air 10/23/24 08:06 36.6 C 67 16 127/69 95 Room Air 10/23/24 07:57 36.9 C 76 16 113/61 94 Room Air
[2024-10-24 07:25] LABS: BUN Creatinine Ratio 24.6 (10-20); Calcium 8.6 mg/dl (8.6-10.3); Creatinine Clr Calc Pharmacy 66.2 ml/min; Magnesium 1.7 mg/dl (1.7-2.4); Potassium 4.1 mmol/L (3.5-5.1)
--- NOTE | 2024-10-24 09:20 | Pain Management Progress Note ---
Date of Service October 24, 2024 Assessment & Plan (1) Severe low back pain: (2) Lumbosacral spondylosis with radiculopathy: Plan 1. Will plan for right L4-5 transforaminal epidural steroid injection once she has been treated for her urinary tract infection. Pain management office will contact her to schedule. 2. Continue Lidoderm patch,gabapentin 300 mg p.o. twice daily and oxycodone 5 mg p.o. every 4 as needed pain. 3. PT consult as an outpatient once she is able to participate. 4. Thank you for this consultation we will see her back in follow-up in our office. Pain management will sign off. Admission and Anticipated Discharge Date Admission Date: October 22, 2024 Subjective Patient reports improvement in overall status but still notes pain between 7-9 out of 10 sharp over right anterior tibia. She reports she was able to ambulate to the restroom with physical therapy more easily than prior. Patient unsure if gabapentin is providing benefit at this time but has only utilized 2 doses. She reports improvement in pain with IV Dilaudid and oral oxycodone. No bowel or bladder incontinence foot drop or falls. Pain Assessment Pain Assessment Full Body Front + Back: 2 1. 2. Pain scale - at its best (0-10): 7 Pain scale - at its worst (0-10): 9 Physical Exam 2 Physical Exam: Constitutional: Well-developed, well-nourished, healthy-appearing, normal weight Psych: Awake, alert, and oriented 3 with normal affect and mood. Recent memory appears grossly intact, resting comfortably on examination Eyes: Pupils are equally round and reactive to light with normal size pupils, eyelids appear normal Ear, nose, mouth, and throat: Moist nasal and oral membranes, lips and tongues appear normal, no external ear abnormalities are noted Musculoskeletal: Head is normocephalic and atraumatic, gait not observed. Lumbar: Lordotic curve: Loss of lumbar lordosis Range of motion is decreased in all planes secondary to pain Tenderness: Moderately tender over the axial midline predominant right L4-S1 Facet provocation: Marginally positive bilaterally Straight leg raise: Negative left positive right worse with Achilles stretch Step-off injuries: None Strength: Strength is equal bilaterally with 5 out of 5 strength in all planes, patient has 5 out of 5 right quadriceps but difficult to test secondary to pain Sensation of lower extremities: Intact bilaterally Deep tendon reflexes: Rated at 1+ in bilateral L4 and S1 Myofascial spasm: Mild lumbar spasm. No discrete trigger points noted Pathologic reflexes noted: None Skin: No rashes, lesions, ulcers, or induration noted Neuro: No nystagmus noted, the tongue is midline, the patient is able to rotate their head bilaterally : Deferred Results (Pain Clinic) Diagnostic Review MRI: non enhanced, reports reviewed, images reviewed and findings discussed with patient MRI Findings: 10/22/24 lumbar spine MRI without contrast ADDENDUM Addendum Report EXAM: MR lumbar spine wo con ADDENDUM: [facility] ER was called at [phone] at 08:10 PM YIELD ANALYST, 10/22/2024, and Yanely Meek Hobbs confirmed that they had received the results Electronically signed by Esau Rodriguez 10-22-2024 6:39 PM ADDENDUM END EXAM: MR lumbar spine wo con CLINICAL HISTORY: NO HX CANCER NO PREV. LUMBAR SURG NKI PAIN RADIATES DOWN RIGHT LEG X 1 WEEK RIGHT LEG ''GIVES OUT'' DIFFICULTY AMBULATING NO LOW BACK PAIN BEST SCANS AT THIS TIME DUE TO MUSCLE SPASMS TECHNIQUE: Different pulse sequences were performed in different planes for the lumbar spine without contrast. Images were sent through PACs for diagnostic interpretation. COMPARISON: None. FINDINGS: Dextroconvex degenerative scoliosis. The Griffith Lippmann's angle measures 12.2. The scanned intervertebral discs show variable degrees of degeneration denoted by low signal intensity on T2 WI with a relative reduction of their heights. Marginal osteophytes are seen.Multiple radial, concentric, and transverse annular fissures are seen. A relative anterior wedging of the L5 vertebral body suggests remote posttraumatic sequelae, e.g., compression flexion injury. (The height difference between the anterior and posterior vertebral margins 3 mm). Osseous hemangiomata Modic I and II marrow changes are seen, with no other remarkable marrow changes. Wide zones of bone marrow edema are seen at the L4 and L5 vertebrae, suggesting septic/aseptic spondylitis. Detailed laboratory correlation and follow-up are recommended as appropriate. Maintained Other vertebral heights with intact vertebral bodies and neural arches. Degenerative spondylolisthesis is seen at the L4-L5 level, measuring 4.2 mm. Degenerative retrolisthesis is seen at the L5-S1 level, measuring 3.6 mm. Posteriorly oriented orthostatic subcutaneous edema is seen opposite the lumbar vertebrae, exhibiting low signals on T1 WI and bright signals on T2 on STIRWI. Multiple Schmorl's nodes are seen at the vertebral end plates. Level by Level analysis: T12-L1: There is no focal disc pathology, spinal canal stenosis, or neural foraminal stenosis. L1-L2: There is a 2.5 mm annular bulge and 3.6 mm right central and subarticular herniation indenting the thecal sac, compromising the subarticular recesses more on the right side with impingement of the emerging nerve roots. no spinal canal stenosis or neural foraminal stenosis.Buckled ligamenta flava and arthropathic facet joints augment effects. L2-L3:There are 3.2 mm subarticular herniations compromising subarticular recesses and neural foramina with impingement of the emerging nerve roots. Buckled ligamenta flava and arthropathic facet joints augment effects. L3-L4: There is a 2.9 mm annular bulge indenting the thecal sac, compromising subarticular recesses with mild bilateral neural foraminal stenosis with impingement of the emerging nerve roots. Buckled ligamenta flava and arthropathic facet joints augment effects. L4-L5: There is a 3.1 mm annular bulge and 4.2 mm central herniation indenting the thecal sac, compromising the subarticular recesses. There is mild spinal canal stenosis and moderate bilateral neural foraminal stenosis with impingement of the emerging nerve roots. Degenerative spondylolisthesis buckled ligamenta flava and arthropathic facet joints augment effects. L5-S1: There is a 3.1 mm annular bulge indenting the theal sac, compromising the subarticular recesses with mild bilateral neural foraminal stenosis with impingement of the emerging nerve roots. Degenerative retrolisthesis buckled ligamenta flava and arthropathic facet joints augment effects. The lower dorsal spinal cord, conus medullaris, and cauda equina nerve roots are unremarkable. Paravertebral soft tissue is unremarkable. No developmental canal stenosis. IMPRESSION: 1. Spondylodegenerative lumbar disc disease. 2. Dextroconvex degenerative scoliosis. The Griffith Lippmann's angle measures 12.2. 3. Osseous hemangioma, Modic I, and II marrow changes. Wide zones of bone marrow edema are seen at the L4 and L5 vertebrae, suggesting septic/aseptic spondylitis. Detailed laboratory correlation and follow-up are recommended as appropriate. 4. Degenerative spondylolisthesis is seen at the L4-L5 level, measuring 4.2 mm. 5. Degenerative retrolisthesis is seen at the L5-S1 level, measuring 3.6 mm. 6. Posteriorly oriented orthostatic subcutaneous edema is seen opposite the lumbar vertebrae, exhibiting low signals on T1 WI and bright signals on T2 on STIRWI. 7. Multiple Schmorl's nodes are seen at the vertebral end plates. 8. L1-L2: There is a 2.5 mm annular bulge and 3.6 mm right central and subarticular herniation. 9. L2-L3:There are 3.2 mm subarticular herniations. 10. L3-L4: There is a 2.9 mm annular bulge. 11. L4-L5: There is a 3.1 mm annular bulge and 4.2 mm central herniation. 12. L5-S1: There is a 3.1 mm annular bulge. 13. Multilevel lumbar disc pathologies at the L1-L2 through the L5-S1 levels with effects exerted upon the spinal canal, subarticular recesses, and neural foramina with impingement of the emerging nerve roots. Degenerative spondylolisthesis, retrolisthesis, buckled ligamenta flava, and arthropathic facet joints augment effects. Findings are most appreciated at the L4-L5 level. 14. The reported findings explain the current clinical status. Radiology: reports reviewed and findings discussed with patient Radiology Findings: 10/23/24 XR lumbar spine 2-3V CLINICAL HISTORY: standing views TECHNIQUE: 3 views of the lumbar spine were obtained. Comparison: None available at the time of this dictation. FINDINGS: There is no evidence of an acute fracture. Degenerative changes are seen in the lumbar spine with osteophyte formation and disc space narrowing. Grade 1 anterolisthesis is seen at L4-L5. Vascular calcifications are noted. IMPRESSION: Degenerative changes as above without acute fracture or subluxation. Previous Records Review Previous Records: personally reviewed by me
--- NOTE | 2024-10-24 15:13 | Hospitalist Progress Note ---
Date of Service October 24, 2024 Assessment & Plan (1) Severe low back pain: Plan: 84 yo F w/ PMH of mixed hyperlipidemia, moderate aortic stenosis, moderate mitral regurgitation, depression comes because of severe back pain radiating to right lower extremity and ambulatory dysfunction. Patient states back pain started after she moved heavy boxes on 09/28. Before presentation, she tried Tylenol, Aleve; prednisone course and prescription of her PCP with no relief. She also visited ED in October 15, was discharged with pain medication with the recommendation to follow-up with orthopedic surgeon. She followed up with pain management on 10/19 and prescribed gabapentin. Since nothing helped, she presented to the ED again. She denied any bowel or bladder incontinence. She denied any febrile illness. She is being managed for the following: Severe low back pain: Severe low back pain started after moving heavy boxes, see above. RLE radicular s/s +nt, no incontinence, no fever. Ambulatory dysfunction affecting her ADLs. Going on for several weeks Admitting Lumbar spine CT - age indeterminate superior endplate compression deformity at L4 fever chronic. Degenerative changes most prominent at L4-5 and L5-S1 Lumbar spine MRI 10/22 and XR 10/23 reviewed. Pain management on board, plan for L4-5 epidural injection as OP (2 wks after atb therapy). [facility] following PT OT , will likely need rehab. UTI: continue Rocephin 10/22. Follow c/s, e coli noted. total 5 day antibiotic therapy. HO Depression: c/w home Zoloft History of moderate aortic stenosis: Monitor for volume overload DVT prophylaxis: Lovenox Disposition: Medical floor Full code. pt/ot, cm to assist w/ dc plan. Admission and Anticipated Discharge Date Admission Date: October 22, 2024 Subjective Patient was seen and examined at bedside. Patient was lying in bed, on room air, NAD. Patient reports pain better controlled, able to move better now. Patient is eating okay and moving bowels okay. Patient denies any sore throat or fever or chills. Physical Exam Physical Exam: General- Not in acute distress. Obese class II. Head- atraumatic Eyes- PERRL. ENT- oropharynx clear Neck- supple, no JVD. Lungs- clear to auscultation no wheezing or crackles. Heart- regular rhythm; ESM murmur, no gallop. Abdomen- normal bowel sounds, soft, nontender, no distension Extremities- mild pretibial edema, no erythema seen Neuro- alert, oriented ; PERRL, no facial palsy; no dysarthria; moves extremities Musculoskeletal b/l Straight leg raise test negative Results & Data Results & Data Vital Signs (Past 12 Hours) Vital Signs Temp Pulse Resp BP Pulse Ox O2 Del Method 10/24/24 14:16 37.2 C 73 16 140/65 94 Room Air 10/24/24 07:05 36.6 C 66 16 127/73 97 Room Air
--- NOTE | 2024-10-25 08:08 | Communication Note ---
Date of Service: October 25, 2024 The patient's right L4-5 transforaminal epidural steroid injection will be scheduled for 11/12/2024 at 11:15 AM. Reviewed that she will need to have a dr nolasco and n.p.o. x 6 hours prior to the procedure. Preprocedure instructions will be mailed to her home and she may contact the [facility] pain management office at [phone] should she have any questions or concerns.
[2024-10-25 10:33] LABS: Creatinine Clr Calc Pharmacy 65.2 ml/min
--- NOTE | 2024-10-25 16:54 | Hospitalist Progress Note ---
Date of Service October 25, 2024 Assessment & Plan (1) Severe low back pain: Plan: 84 yo F w/ PMH of mixed hyperlipidemia, moderate aortic stenosis, moderate mitral regurgitation, depression comes because of severe back pain radiating to right lower extremity and ambulatory dysfunction. Patient states back pain started after she moved heavy boxes on 09/28. Before presentation, she tried Tylenol, Aleve; prednisone course and prescription of her PCP with no relief. She also visited ED in October 15, was discharged with pain medication with the recommendation to follow-up with orthopedic surgeon. She followed up with pain management on 10/19 and prescribed gabapentin. Since nothing helped, she presented to the ED again. She denied any bowel or bladder incontinence. She denied any febrile illness. She is being managed for the following: Severe low back pain: Severe low back pain started after moving heavy boxes, see above. RLE radicular s/s +nt, no incontinence, no fever. Ambulatory dysfunction affecting her ADLs. Going on for several weeks Admitting Lumbar spine CT - age indeterminate superior endplate compression deformity at L4 fever chronic. Degenerative changes most prominent at L4-5 and L5-S1 Lumbar spine MRI 10/22 and XR 10/23 reviewed. Pain management on board, plan for L4-5 epidural injection as OP (2 wks after atb therapy). [facility] following Patient with increased pain today. Continue with physical therapy. PT OT UTI: continue Rocephin 10/22. Follow c/s, e coli noted. total 5 day antibiotic therapy. HO Depression: c/w home Zoloft History of moderate aortic stenosis: Monitor for volume overload DVT prophylaxis: Lovenox Disposition: Medical floor Full code. pt/ot, cm to assist w/ dc plan. Admission and Anticipated Discharge Date Admission Date: October 22, 2024 Subjective Patient was seen and examined at bedside. Patient was lying in bed, on room air, NAD. Patient reports pain Pain has increased today and is not able to handle herself at home. She wishes to go home with home health. Will have PT reevaluate today. Patient is eating okay and moving bowels okay. Patient denies any sore throat or fever or chills. Physical Exam Physical Exam: General- Not in acute distress. Obese class II. Head- atraumatic Eyes- PERRL. ENT- oropharynx clear Neck- supple, no JVD. Lungs- clear to auscultation no wheezing or crackles. Heart- regular rhythm; ESM murmur, no gallop. Abdomen- normal bowel sounds, soft, nontender, no distension Extremities- mild pretibial edema, no erythema seen Neuro- alert, oriented ; PERRL, no facial palsy; no dysarthria; moves extremities Musculoskeletal b/l Straight leg raise test negative Results & Data Results & Data Vital Signs (Past 12 Hours) Vital Signs Temp Pulse Resp BP Pulse Ox O2 Del Method 10/25/24 15:08 36.4 C L 64 16 146/83 H 95 Room Air 10/25/24 07:46 36.7 C 63 18 153/77 H 93 Room Air
[2024-10-26 08:58] LABS: Hematocrit (blood only) 38.1 % (37.0-47.0); Hemoglobin 12.5 g/dl (12.0-16.0); Mean Corpuscular Hemoglobin 28.1 pg (25.0-34.0); Mean Corpuscular Hgb Conc 32.8 g/dL (32.0-36.0); Mean Corpuscular Volume 85.6 fL (80.0-100.0); Mean Platelet Volume 9.7 fL (9.4-12.4); Platelet Count 152 K/uL (130-400); RDW Coefficient of Variation 13.6 % (11.5-14.5); RDW Standard Deviation 41.9 fL (36.4-46.3); Red Blood Count 4.45 M/uL (4.20-5.40); White Blood Count 4.87 K/ul (4.8-10.8)
[2024-10-26 09:14] LABS: BUN Creatinine Ratio 19.1 (10-20); Calcium 9.1 mg/dl (8.6-10.3); Creatinine Clr Calc Pharmacy 67.1 ml/min; Potassium 4.5 mmol/L (3.5-5.1)
--- NOTE | 2024-10-26 09:56 | Orthopedic Progress Note ---
Date of Service October 26, 2024 Assessment & Plan (1) Lumbosacral spondylosis with radiculopathy: Plan: I have outlined with the patient our plan. I discussed with Dr. Bailey a diagnostic therapeutic L4-L5 transforaminal injection. Hopefully this will provide several weeks to months of relief. However if it does not we would have to consider possible surgical intervention. I would like to see her after she undergoes her injections to assess her progress. She understands agrees. Admission and Anticipated Discharge Date Admission Date: October 22, 2024 Subjective Patient continues to have back and right leg pain. She states she requires medicine to control her symptoms. She is concerned about going home. Physical Exam Physical Exam: On exam she is at least comfortable at this time and appears to be neurologically intact. Results & Data Vital Signs (Past 12 Hours) Vital Signs Temp Pulse Resp BP Pulse Ox O2 Del Method 10/26/24 07:04 36.7 C 62 16 122/76 95 Room Air
--- NOTE | 2024-10-26 17:32 | Hospitalist Progress Note ---
Date of Service October 26, 2024 Assessment & Plan (1) Severe low back pain: Plan: 84 yo F w/ PMH of mixed hyperlipidemia, moderate aortic stenosis, moderate mitral regurgitation, depression comes because of severe back pain radiating to right lower extremity and ambulatory dysfunction. Patient states back pain started after she moved heavy boxes on 09/28. Before presentation, she tried Tylenol, Aleve; prednisone course and prescription of her PCP with no relief. She also visited ED in October 15, was discharged with pain medication with the recommendation to follow-up with orthopedic surgeon. She followed up with pain management on 10/19 and prescribed gabapentin. Since nothing helped, she presented to the ED again. She denied any bowel or bladder incontinence. She denied any febrile illness. She is being managed for the following: Severe low back pain: Secondary to lumbosacral spondylosis with radiculopathy Severe low back pain started after moving heavy boxes, see above. RLE radicular s/s +nt, no incontinence, no fever. Ambulatory dysfunction affecting her ADLs. Going on for several weeks Admitting Lumbar spine CT - age indeterminate superior endplate compression deformity at L4 fever chronic. Degenerative changes most prominent at L4-5 and L5-S1 Lumbar spine MRI 10/22 and XR 10/23 reviewed. Pain management on board, plan for L4-5 epidural injection as OP (2 wks after atb therapy). [facility] following-appreciate input and recommendation. Advised to have injections therapy to assess progress before doing any surgical intervention Patient with increased pain today. Continue with physical therapy. Appreciate pain therapy input and recommendation-patient will have transforaminal epidural steroid injection right L4-5 section scheduled on 11/12/2024 at 11:15 AM PT OT and placement UTI: continue Rocephin 10/22. Follow c/s, e coli noted. total 5 day antibiotic therapy. Denies any urinary symptoms and will finish the course of antibiotic HO Depression: c/w home Zoloft History of moderate aortic stenosis: Monitor for volume overload DVT prophylaxis: Lovenox Disposition: Medical floor Full code. pt/ot, cm to assist w/ dc plan. Admission and Anticipated Discharge Date Admission Date: October 22, 2024 Subjective 10/26/2024 Her back pain is a little better today following oral pain medications and intravenous pain medications Was seen by pain therapist and awaiting for possible injection Has been getting PT and OT evaluation and possible placement Review of Systems Review of Systems: All systems reviewed and are unremarkable except as noted below Physical Exam Physical Exam: Lying in bed without any apparent distress Constitutional: well developed, well nourished, + ill appearing and + obese Eyes: PERRL, conjunctivae normal, anicteric sclerae ENMT: external ear and nose normal, oropharynx normal Neck: trachea midline, no thyromegaly Respiratory: no respiratory distress Auscultation: lungs clear to auscultation bilaterally Cardiovascular: Rate/Rhythm: regular rate and regular rhythm; not tachycardic Heart Sounds: normal S1 and normal S2; no murmur Gastrointestinal (Abdomen): Inspection/Auscultation: normal bowel sounds; abdomen not distended Percussion/Palpation: abdomen soft; abdomen nontender Musculoskeletal: No acute arthritis involving any of the joint Neurologic: normal touch/pain/proprioception and moves all extremities; no focal motor deficits Lymphatic: no cervical or axillary lymphadenopathy Results & Data Results & Data Vital Signs (Past 12 Hours) Vital Signs Temp Pulse Resp BP Pulse Ox O2 Del Method 10/26/24 15:18 36.9 C 61 16 129/54 L 93 Room Air 10/26/24 07:04 36.7 C 62 16 122/76 95 Room Air Laboratory Results Short CBC 10/26/24 Range/Units 08:09 WBC 4.87 (4.8-10.8) K/ul Hgb 12.5 (12.0-16.0) g/dl Hct 38.1 (37.0-47.0) % Plt Count 152 (130-400) K/uL BMP 10/26/24 08:09 Sodium 137 Potassium 4.5 Chloride 104 Carbon Dioxide 28 BUN 13 Creatinine 0.68 Glucose 97 Calcium 9.1 Medications Administered Current Inpatient Medications Acetaminophen (Acetaminophen 325 Mg Tab) 650 mg PO Q6 ZULEYMA Stop: 11/21/24 18:29 Last Admin: 10/26/24 17:03 Dose: 650 mg Cyanocobalamin (Cyanocobalamin (B-12) 500 Mcg Tablet) 1,000 mcg PO DAILY ZULEYMA Stop: 11/21/24 08:59 Last Admin: 10/26/24 08:17 Dose: 1,000 mcg Docusate Sodium (Docusate Sodium 100 Mg Cap) 100 mg PO BID ZULEYMA Stop: 11/21/24 20:59 Last Admin: 10/24/24 20:16 Dose: Not Given Enoxaparin Sodium (Enoxaparin Inj 40 Mg/0.4 Ml Syr) 40 mg SQ Q24H [facility] Stop: 11/21/24 05:59 Last Admin: 10/26/24 05:34 Dose: 40 mg Gabapentin (Gabapentin 300 Mg Cap) 300 mg PO BID [facility] Stop: 11/22/24 12:14 Last Admin: 10/26/24 08:17 Dose: 300 mg Hydromorphone HCl (Hydromorphone Inj 0.5 Mg/0.5 Ml Syr) 0.5 mg IV Q6H PRN PRN Reason: Severe Pain (Scale 7, 8, 9,10) Stop: 11/05/24 02:40 Last Admin: 10/26/24 05:31 Dose: 0.5 mg Ceftriaxone Sodium (Rocephin) 2,000 mg in 50 mls @ 100 mls/hr IV Q24H [facility] Stop: 10/28/24 00:59 Last Infusion: 10/26/24 00:38 Dose: Infused Ketorolac Tromethamine (Ketorolac Tromethamine 15 Mg/Ml Vial) 15 mg IV Q6H PRN PRN Reason: Moderate Pain (Scale 4, 5, 6) Stop: 10/28/24 15:44 Lidocaine (Lidocaine 5% 1 Patch) 1 patch TD QAM [facility] Stop: 11/21/24 18:14 Last Admin: 10/26/24 07:50 Dose: Not Given Melatonin (Melatonin 3 Mg Tab) 4.5 mg PO HS PRN PRN Reason: Insomnia Stop: 11/21/24 02:44 Miscellaneous (Remove Lidoderm Patch) 1 each N/A DAILY@2100 [facility] Stop: 11/22/24 00:00 Last Admin: 10/25/24 19:15 Dose: 1 each Miscellaneous (Remove Lidoderm Patch) 1 each N/A DAILY@2100 [facility] Stop: 11/22/24 20:59 Last Admin: 10/25/24 19:16 Dose: 1 each Multivitamins/Minerals (Cerovite Adv Formula Tab) 1 tab PO DAILY@0800 [facility] Stop: 11/21/24 07:59 Last Admin: 10/26/24 08:17 Dose: Not Given Oxycodone HCl (Oxycodone Hcl Ir 5 Mg Tab (Immediate Release)) 5 mg PO Q4H PRN PRN Reason: Pain Stop: 11/05/24 02:40 Last Admin: 10/26/24 00:05 Dose: 5 mg Polyethylene Glycol (Polyethylene (Miralax) 17 Gm Pack) 17 gm PO DAILY PRN PRN Reason: Constipation Stop: 11/21/24 02:40 Sertraline HCl (Sertraline Hcl 100 Mg Tablet) 200 mg PO DAILY ZULEYMA Stop: 11/21/24 08:59 Last Admin: 10/26/24 08:17 Dose: 200 mg Vitamin D (Cholecalciferol 25 Mcg (1000 Units) Tab) 25 mcg PO DAILY ZULEYMA Stop: 11/21/24 08:59 Last Admin: 10/26/24 08:17 Dose: 25 mcg
[2024-10-26] MEDS: KETOROLAC TROMETHAMINE 15 MG/ML VIAL IV PRN (20:35)
--- NOTE | 2024-10-27 15:44 | Hospitalist Progress Note ---
Date of Service October 27, 2024 Assessment & Plan (1) Severe low back pain: Plan: 84 yo F w/ PMH of mixed hyperlipidemia, moderate aortic stenosis, moderate mitral regurgitation, depression comes because of severe back pain radiating to right lower extremity and ambulatory dysfunction. Patient states back pain started after she moved heavy boxes on 09/28. Before presentation, she tried Tylenol, Aleve; prednisone course and prescription of her PCP with no relief. She also visited ED in October 15, was discharged with pain medication with the recommendation to follow-up with orthopedic surgeon. She followed up with pain management on 10/19 and prescribed gabapentin. Since nothing helped, she presented to the ED again. She denied any bowel or bladder incontinence. She denied any febrile illness. She is being managed for the following: Severe low back pain: Secondary to lumbosacral spondylosis with radiculopathy Severe low back pain started after moving heavy boxes, see above. RLE radicular s/s +nt, no incontinence, no fever. Ambulatory dysfunction affecting her ADLs. Going on for several weeks Admitting Lumbar spine CT - age indeterminate superior endplate compression deformity at L4 fever chronic. Degenerative changes most prominent at L4-5 and L5-S1 Lumbar spine MRI 10/22 and XR 10/23 reviewed. Pain management on board, plan for L4-5 epidural injection as OP (2 wks after atb therapy). [facility] following-appreciate input and recommendation. Advised to have injections therapy to assess progress before doing any surgical intervention Patient with increased pain today. Continue with physical therapy. Appreciate pain therapy input and recommendation-patient will have transforaminal epidural steroid injection right L4-5 section scheduled on 11/12/2024 at 11:15 AM PT OT and placement-[facility] Has had a fall in the restroom today without any loss of consciousness of significant trauma Remains unremarkable on examination and means that she will be leaving [facility] She will get a few doses of oxycodone on discharge UTI: continue Rocephin 10/22. Follow c/s, e coli noted. total 5 day antibiotic therapy. Denies any urinary symptoms and will finish the course of antibiotic Denies any other symptoms HO Depression: c/w home Zoloft History of moderate aortic stenosis: Monitor for volume overload DVT prophylaxis: Lovenox Disposition: Medical floor Full code. pt/ot, cm to assist w/ dc plan. Admission and Anticipated Discharge Date Admission Date: October 22, 2024 Subjective 10/26/2024 Her back pain is a little better today following oral pain medications and intravenous pain medications Was seen by pain therapist and awaiting for possible injection Has been getting PT and OT evaluation and possible placement 10/27/2024 The patient was seen and examined in medical floor Apparently she has had a fall in the restroom while stooping down to much Did not have any significant trauma and does not complain any pain other than ongoing back Has been waiting to be placed Review of Systems Review of Systems: All systems reviewed and are unremarkable except as noted below Physical Exam Physical Exam: Lying in bed without any apparent distress Constitutional: well developed, well nourished, + ill appearing and + obese Eyes: PERRL, conjunctivae normal, anicteric sclerae ENMT: external ear and nose normal, oropharynx normal Neck: trachea midline, no thyromegaly Respiratory: no respiratory distress Auscultation: lungs clear to auscultation bilaterally Cardiovascular: Rate/Rhythm: regular rate and regular rhythm; not tachycardic Heart Sounds: normal S1 and normal S2; no murmur Gastrointestinal (Abdomen): Inspection/Auscultation: normal bowel sounds; abdomen not distended Percussion/Palpation: abdomen soft; abdomen nontender Musculoskeletal: No acute arthritis involving any of the joint Neurologic: normal touch/pain/proprioception and moves all extremities; no focal motor deficits Lymphatic: no cervical or axillary lymphadenopathy Results & Data Results & Data Vital Signs (Past 12 Hours) Vital Signs Temp Pulse Resp BP Pulse Ox O2 Del Method 10/27/24 14:12 36.5 C 72 16 128/76 96 Room Air 10/27/24 07:45 Room Air 10/27/24 07:02 37.0 C 60 16 164/89 H 95 Room Air Medications Administered Current Inpatient Medications Acetaminophen (Acetaminophen 325 Mg Tab) 650 mg PO Q6 [facility] Stop: 11/21/24 18:29 Last Admin: 10/27/24 13:28 Dose: 650 mg Cyanocobalamin (Cyanocobalamin (B-12) 500 Mcg Tablet) 1,000 mcg PO DAILY [facility] Stop: 11/21/24 08:59 Last Admin: 10/27/24 07:56 Dose: 1,000 mcg Docusate Sodium (Docusate Sodium 100 Mg Cap) 100 mg PO BID [facility] Stop: 11/21/24 20:59 Last Admin: 10/24/24 20:16 Dose: Not Given Enoxaparin Sodium (Enoxaparin Inj 40 Mg/0.4 Ml Syr) 40 mg SQ Q24H [facility] Stop: 11/21/24 05:59 Last Admin: 10/27/24 05:57 Dose: 40 mg Gabapentin (Gabapentin 300 Mg Cap) 300 mg PO BID [facility] Stop: 11/22/24 12:14 Last Admin: 10/27/24 07:56 Dose: 300 mg Hydromorphone HCl (Hydromorphone Inj 0.5 Mg/0.5 Ml Syr) 0.5 mg IV Q6H PRN PRN Reason: Severe Pain (Scale 7, 8, 9,10) Stop: 11/05/24 02:40 Last Admin: 10/26/24 05:31 Dose: 0.5 mg Ceftriaxone Sodium (Rocephin) 2,000 mg in 50 mls @ 100 mls/hr IV Q24H [facility] Stop: 10/28/24 00:59 Last Infusion: 10/27/24 02:31 Dose: Infused Ketorolac Tromethamine (Ketorolac Tromethamine 15 Mg/Ml Vial) 15 mg IV Q6H PRN PRN Reason: Moderate Pain (Scale 4, 5, 6) Stop: 10/28/24 15:44 Last Admin: 10/26/24 20:35 Dose: 15 mg Lidocaine (Lidocaine 5% 1 Patch) 1 patch TD QAM [facility] Stop: 11/21/24 18:14 Last Admin: 10/27/24 07:55 Dose: Not Given Melatonin (Melatonin 3 Mg Tab) 4.5 mg PO HS PRN PRN Reason: Insomnia Stop: 11/21/24 02:44 Miscellaneous (Remove Lidoderm Patch) 1 each N/A DAILY@2100 [facility] Stop: 11/22/24 00:00 Last Admin: 10/26/24 20:35 Dose: Not Given Miscellaneous (Remove Lidoderm Patch) 1 each N/A DAILY@2100 [facility] Stop: 11/22/24 20:59 Last Admin: 10/26/24 20:35 Dose: Not Given Multivitamins/Minerals (Cerovite Adv Formula Tab) 1 tab PO DAILY@0800 [facility] Stop: 11/21/24 07:59 Last Admin: 10/27/24 07:53 Dose: Not Given Oxycodone HCl (Oxycodone Hcl Ir 5 Mg Tab (Immediate Release)) 5 mg PO Q4H PRN PRN Reason: Pain Stop: 11/05/24 02:40 Last Admin: 10/27/24 07:53 Dose: 5 mg Polyethylene Glycol (Polyethylene (Miralax) 17 Gm Pack) 17 gm PO DAILY PRN PRN Reason: Constipation Stop: 11/21/24 02:40 Sertraline HCl (Sertraline Hcl 100 Mg Tablet) 200 mg PO DAILY [facility] Stop: 11/21/24 08:59 Last Admin: 10/27/24 07:55 Dose: 200 mg Vitamin D (Cholecalciferol 25 Mcg (1000 Units) Tab) 25 mcg PO DAILY [facility] Stop: 11/21/24 08:59 Last Admin: 10/27/24 07:55 Dose: 25 mcg
[2024-10-28 08:50] LABS: Creatinine Clr Calc Pharmacy 60.9 ml/min
--- NOTE | 2024-10-28 14:23 | Hospitalist Progress Note ---
Date of Service October 28, 2024 Assessment & Plan (1) Severe low back pain: Plan: 84 yo F w/ PMH of mixed hyperlipidemia, moderate aortic stenosis, moderate mitral regurgitation, depression comes because of severe back pain radiating to right lower extremity and ambulatory dysfunction. Patient states back pain started after she moved heavy boxes on 09/28. Before presentation, she tried Tylenol, Aleve; prednisone course and prescription of her PCP with no relief. She also visited ED in October 15, was discharged with pain medication with the recommendation to follow-up with orthopedic surgeon. She followed up with pain management on 10/19 and prescribed gabapentin. Since nothing helped, she presented to the ED again. She denied any bowel or bladder incontinence. She denied any febrile illness. She is being managed for the following: Severe low back pain: Secondary to lumbosacral spondylosis with radiculopathy Severe low back pain started after moving heavy boxes, see above. RLE radicular s/s +nt, no incontinence, no fever. Ambulatory dysfunction affecting her ADLs. Going on for several weeks Admitting Lumbar spine CT - age indeterminate superior endplate compression deformity at L4 fever chronic. Degenerative changes most prominent at L4-5 and L5-S1 Lumbar spine MRI 10/22 and XR 10/23 reviewed [facility] following-appreciate input and recommendation. Advised to have injections therapy to assess progress before doing any surgical intervention Appreciate pain therapy input and recommendation-patient will have transforaminal epidural steroid injection right L4-5 section scheduled on 11/12/2024 at 11:15 AM (must wait for 2 wks following abx) PT OT and placement-[facility] once arranged by CM She will get a few doses of oxycodone on discharge UTI: continue Rocephin 10/22. Follow c/s, e coli noted. Has completed 5 day antibiotic therapy HO Depression: c/w home Zoloft History of moderate aortic stenosis: Monitor for volume overload DVT prophylaxis: Lovenox Disposition: Medical floor Full code. pt/ot, cm to assist w/ dc back to [facility] - no beds available today Care coordinated with Dr. Simon. I spent a total of 45 minutes coordinating, documenting, and providing care for this patient excluding time spent in the performance of separately billed services. Admission and Anticipated Discharge Date Admission Date: October 22, 2024 Supervising Physician Co-Signing Physician Notes Attending addendum: The patient was seen and examined in medical floor She does not have any pain at rest Remains otherwise stable and awaiting placement On examination Lying in bed without any acute distress Hemodynamically stable Chestclear to auscultate bilaterally Abdomenbenign HeartS1-S2, regular Extremitiesnegative Medications and imaging studies reviewed Has intractable back pain which will require injection as an outpatient Awaiting placement Agree with assessment plan as outlined above by Melonie Siu PA-C the full responsibility of care in the hospital DR Solo Simon Subjective Patient seen and examined in 382 bed 2. Comfortable today, no new complaints. Still having lower back pain worse on the right side. No longer having pain in right lower extremity. Feeling better and awaiting discharge [facility]. No chest pain, shortness of breath, nausea, vomiting, abdominal pain, dysuria. Last bowel movement this morning. Review of Systems Review of Systems: At least ten systems reviewed and negative except as noted in the HPI. Physical Exam Physical Exam: Gen: WD/WN, NAD, resting in bed comfortably, A&Ox3, obese HEENT: Normocephalic, atraumatic, conjunctivae moist, sclerae anicteric, mucous membranes moist Lung: Clear to Auscultation bilaterally Heart: Regular rate, regular rhythm, +POONAM Abdomen: Soft, NT, ND +BS x 4 Extremities: + Lumbar region back pain with TTP, no deformities, no BLE edema Skin: Warm, no rash Results & Data Results & Data Vital Signs (Past 12 Hours) Vital Signs Temp Pulse Resp BP Pulse Ox O2 Del Method 10/28/24 14:02 36.4 C L 64 16 146/65 H 94 Room Air 10/28/24 07:41 36.7 C 65 17 146/73 H 93 Room Air Laboratory Results [facility] 10/28/24 07:51 Creatinine 0.75 Diagnostic Findings Abdomen/Pelvis CT 10/21/24 18:39 Exam(s): CT ABDOMEN + PELVIS Without Contrast EXAM: CT Abdomen and Pelvis Without Intravenous Contrast CLINICAL HISTORY: Reason for exam: right flank pain. TECHNIQUE: Axial computed tomography images of the abdomen and pelvis without intravenous contrast. CTDI is 27.2 mGy and DLP is 1307.45 mGy-cm. Automated exposure control was utilized for the study. A dose lowering technique was utilized adhering to the principles of ALARA. COMPARISON: No relevant prior studies available. FINDINGS: ABDOMEN: Liver: Cyst in the left hepatic lobe measuring 1.5 cm. Gallbladder and bile ducts: Unremarkable. Pancreas: Unremarkable. Spleen: Mild splenomegaly. Adrenals: Unremarkable. Kidneys and ureters: No ureteral stone or obstructive uropathy. Stomach and bowel: Colonic diverticulosis. PELVIS: Appendix: No findings to suggest acute appendicitis. Bladder: Unremarkable. Reproductive: Unremarkable as visualized. ABDOMEN and PELVIS: Intraperitoneal space: Unremarkable. No free air. No significant fluid collection. Bones/joints: No acute fracture. Soft tissues: Unremarkable. Vasculature: Aortobiiliac atherosclerosis. Lymph nodes: Unremarkable. IMPRESSION: 1. No ureteral stone or obstructive uropathy. 2. Colonic diverticulosis. 3. Mild splenomegaly. Electronically signed by: Reilly Mccrary MD 10/21/24 21:[address] 10/21/24 18:39 Exam(s): CT L SPINE EXAM: CT Lumbar Spine Without Intravenous Contrast CLINICAL HISTORY: Reason for exam: right sided pain. TECHNIQUE: Axial computed tomography images of the lumbar spine without intravenous contrast. CTDI is 27.2 mGy and DLP is 1307.45 mGy-cm. Automated exposure control was utilized for the study. A dose lowering technique was utilized adhering to the principles of ALARA. COMPARISON: No relevant prior studies available. FINDINGS: Vertebrae: Age indeterminate superior endplate compression deformity at L5. Bones are osteopenic which limits evaluation for acute nondisplaced fracture trace anterolisthesis at L4-5. Discs/spinal canal/neural foramina: Degenerative disc disease most pronounced at L4-5 and L5-S1. No significant canal stenosis. Moderate bilateral foraminal stenosis. Soft tissues: Unremarkable. IMPRESSION: 1. Age indeterminate superior endplate compression deformity at L5, favored chronic. 2. Degenerative changes most pronounced at L4-5 and L5-S1. Electronically signed by: Reilly Mccrary MD 10/21/24 21:43 PM Lumbar Spine MRI 10/22/24 14:08 EXAM: MR lumbar spine wo con CLINICAL HISTORY: NO HX CANCER NO PREV. LUMBAR SURG NKI PAIN RADIATES DOWN RIGHT LEG X 1 WEEK RIGHT LEG ''GIVES OUT'' DIFFICULTY AMBULATING NO LOW BACK PAIN BEST SCANS AT THIS TIME DUE TO MUSCLE SPASMS TECHNIQUE: Different pulse sequences were performed in different planes for the lumbar spine without contrast. Images were sent through PACs for diagnostic interpretation. COMPARISON: None. FINDINGS: Dextroconvex degenerative scoliosis. The Griffith Lippmann's angle measures 12.2. The scanned intervertebral discs show variable degrees of degeneration denoted by low signal intensity on T2 WI with a relative reduction of their heights. Marginal osteophytes are seen.Multiple radial, concentric, and transverse annular fissures are seen. A relative anterior wedging of the L5 vertebral body suggests remote posttraumatic sequelae, e.g., compression flexion injury. (The height difference between the anterior and posterior vertebral margins 3 mm). Osseous hemangiomata Modic I and II marrow changes are seen, with no other remarkable marrow changes. Wide zones of bone marrow edema are seen at the L4 and L5 vertebrae, suggesting septic/aseptic spondylitis. Detailed laboratory correlation and follow-up are recommended as appropriate. Maintained Other vertebral heights with intact vertebral bodies and neural arches. Degenerative spondylolisthesis is seen at the L4-L5 level, measuring 4.2 mm. Degenerative retrolisthesis is seen at the L5-S1 level, measuring 3.6 mm. Posteriorly oriented orthostatic subcutaneous edema is seen opposite the lumbar vertebrae, exhibiting low signals on T1 WI and bright signals on T2 on STIRWI. Multiple Schmorl's nodes are seen at the vertebral end plates. Level by Level analysis: T12-L1: There is no focal disc pathology, spinal canal stenosis, or neural foraminal stenosis. L1-L2: There is a 2.5 mm annular bulge and 3.6 mm right central and subarticular herniation indenting the thecal sac, compromising the subarticular recesses more on the right side with impingement of the emerging nerve roots. no spinal canal stenosis or neural foraminal stenosis.Buckled ligamenta flava and arthropathic facet joints augment effects. L2-L3:There are 3.2 mm subarticular herniations compromising subarticular recesses and neural foramina with impingement of the emerging nerve roots. Buckled ligamenta flava and arthropathic facet joints augment effects. L3-L4: There is a 2.9 mm annular bulge indenting the thecal sac, compromising subarticular recesses with mild bilateral neural foraminal stenosis with impingement of the emerging nerve roots. Buckled ligamenta flava and arthropathic facet joints augment effects. L4-L5: There is a 3.1 mm annular bulge and 4.2 mm central herniation indenting the thecal sac, compromising the subarticular recesses. There is mild spinal canal stenosis and moderate bilateral neural foraminal stenosis with impingement of the emerging nerve roots. Degenerative spondylolisthesis buckled ligamenta flava and arthropathic facet joints augment effects. L5-S1: There is a 3.1 mm annular bulge indenting the theal sac, compromising the subarticular recesses with mild bilateral neural foraminal stenosis with impingement of the emerging nerve roots. Degenerative retrolisthesis buckled ligamenta flava and arthropathic facet joints augment effects. The lower dorsal spinal cord, conus medullaris, and cauda equina nerve roots are unremarkable. Paravertebral soft tissue is unremarkable. No developmental canal stenosis. IMPRESSION: 1. Spondylodegenerative lumbar disc disease. 2. Dextroconvex degenerative scoliosis. The Griffith Lippmann's angle measures 12.2. 3. Osseous hemangioma, Modic I, and II marrow changes. Wide zones of bone marrow edema are seen at the L4 and L5 vertebrae, suggesting septic/aseptic spondylitis. Detailed laboratory correlation and follow-up are recommended as appropriate. 4. Degenerative spondylolisthesis is seen at the L4-L5 level, measuring 4.2 mm. 5. Degenerative retrolisthesis is seen at the L5-S1 level, measuring 3.6 mm. 6. Posteriorly oriented orthostatic subcutaneous edema is seen opposite the lumbar vertebrae, exhibiting low signals on T1 WI and bright signals on T2 on STIRWI. 7. Multiple Schmorl's nodes are seen at the vertebral end plates. 8. L1-L2: There is a 2.5 mm annular bulge and 3.6 mm right central and subarticular herniation. 9. L2-L3:There are 3.2 mm subarticular herniations. 10. L3-L4: There is a 2.9 mm annular bulge. 11. L4-L5: There is a 3.1 mm annular bulge and 4.2 mm central herniation. 12. L5-S1: There is a 3.1 mm annular bulge. 13. Multilevel lumbar disc pathologies at the L1-L2 through the L5-S1 levels with effects exerted upon the spinal canal, subarticular recesses, and neural foramina with impingement of the emerging nerve roots. Degenerative spondylolisthesis, retrolisthesis, buckled ligamenta flava, and arthropathic facet joints augment effects. Findings are most appreciated at the L4-L5 level. 14. The reported findings explain the current clinical status. Electronically signed by Esau Rodriguez 10-22-2024 6:39 PM Lumbar Spine X-Ray 10/23/24 09:33 XR lumbar spine 2-3V CLINICAL HISTORY: standing views TECHNIQUE: 3 views of the lumbar spine were obtained. Comparison: None available at the time of this dictation. FINDINGS: There is no evidence of an acute fracture. Degenerative changes are seen in the lumbar spine with osteophyte formation and disc space narrowing. Grade 1 anterolisthesis is seen at L4-L5. Vascular calcifications are noted. IMPRESSION: Degenerative changes as above without acute fracture or subluxation. ACT 112: Negative or not required by law. Electronically signed by: Uzair Reed M.D. 10/23/2024 11:08 AM
[2024-10-29 07:35] VITALS: BP 155/100; RESP 16; TEMP 98.1; O2SAT 95
--- NOTE | 2024-10-29 12:45 | Discharge Summary ---
Discharge Summary Date of Service October 29, 2024 Principal Dx & Hospital Course #1 = Principal Diagnosis (1) Severe low back pain: (2) Lumbosacral spondylosis with radiculopathy: (3) Depression: (4) Moderate mitral regurgitation: Plan This is a 84 yo F w/ PMH of mixed hyperlipidemia, moderate aortic stenosis, moderate mitral regurgitation, depression comes because of severe back pain radiating to right lower extremity and ambulatory dysfunction. Patient states back pain started after she moved heavy boxes on 09/28. Before presentation, she tried Tylenol, Aleve; prednisone course and prescription of her PCP with no relief. She also visited ED in October 15, was discharged with pain medication with the recommendation to follow-up with orthopedic surgeon. She followed up with pain management on 10/19 and prescribed gabapentin. Lumbar spine MRI 10/22 with multilevel lumbar disc pathologies at the L1-L2 through the L5-S1 levels with effects exerted upon the spinal canal, subarticular recesses, and neural foramina with impingement of the emerging nerve roots. Degenerative spondylolisthesis, retrolisthesis, buckled ligamenta flava, and arthropathic facet joints augment effects. Findings are most appreciated at the L4-L5 level. Orthospine consulted and recommending injections therapy to assess progress before doing any surgical intervention. Pain mgmt evaluated and transforaminal epidural steroid injection right L4-5 section scheduled on 11/12/2024 at 11:15 AM in outpatient setting (must wait for 2 wks following abx). Gabapentin helping significantly per patient and will be continued. PRN oxycodone for breakthrough pain. PT/OT recommending continued rehab with SNF bed not available for many days. Patient opting to return to [place] with [place] PT/OT. While admitted, completed 5 day course of rocephin for UTI. Hemodynamically stable for discharge home. Notes For Next Care Provider Medication Changes From Visit Gabapentin 300mg BID, continue Admission HPI Per Admitting Provider 84-year-old female with past medical significant for mixed hyperlipidemia, moderate aortic stenosis, moderate mitral regurgitation, depression comes because of severe back pain radiating to right lower extremity and ambulatory dysfunction. Patient states back pain started after she moved heavy boxes on 09/28. Used Tylenol and Aleve without much help. She followed with PCP on 10/02 telemedicine and prescribed prednisone course. Prednisone was not helping called PCP again and lumbar spine x-ray was ordered which was done on 10/07/2024 which showed grade 1 anterolisthesis of L4 on L5. Multilevel degenerative changes of the spine noted. Baclofen as needed was ordered without much relief. She also used topical Voltaren with minimal relief. Then patient started developing severe pain down front of her right leg making ambulation difficult. She is using a cane to ambulate. She saw PCP again in the office on 10/11/24 and was prescribed diclofenac sodium 75 mg twice daily as needed. As the [employer] cines were not helping she called PCP again and she was referred to pain management. On October 15/2024 she came to the ER as she was having difficulty ambulation because of pain. Right lower extremity Doppler was done is negative for DVT ,plan right tibia-fibula x-ray was done which was showed no fractures but showed moderate right knee osteoarthritis. Discharged home to follow-up with orthopedic surgeon. She followed up with pain management on . Pain management recommend MRI and plan for right leg 4/5 ROSAURA pending MRI. And prescribed gabapentin for now. Patient took gabapentin but it did not helped and stopped taking it. As Symptoms not getting better she came to the ER again today. Currently with IV pain medication pain improved. But any movement or putting weight on the leg causing the pain to come back. Denies any bowel or bladder incontinence. Denies abdominal pain. No blood in the stool or black stools. No chest pain or shortness. No nausea currently. No difficulty swallowing. Appetite is okay. No runny nose or sore throat or cough. Currently no headache. Vision is okay. Afebrile. Hemodynamics are okay. Past medical history. As mentioned above Past surgical history. Colonoscopy. Ligation oviducts. Bilateral cataracts. Bilateral vein stripping. Social history. . Quit smoking 1984. Smoked 1 pack a day for 30 years. Alcohol occasional. No drug use. Family history. Maternal aunt had breast cancer in her 80s. Maternal grandmother had eye problems. Mother had eye problems. Cousin had a blindness from a tumor. Father of [place] at age 81. Admission Exam Per Admitting Provider General- Not in acute distress. Head- atraumatic Eyes- PERRL. ENT- oropharynx clear Neck- supple, no JVD. Lungs- clear to auscultation no wheezing or crackles. Heart- regular rhythm; ESM murmur, no gallop. Abdomen- normal bowel sounds, soft, nontender, no distension Extremities- mild pretibial edema, no erythema seen Neuro- alert, oriented ; PERRL, no facial palsy; no dysarthria; moves extremities Musculoskeletal b/l Straight leg raise test negative Discharge Exam Gen: WD/WN, NAD, resting in bed comfortably, A&Ox3, obese HEENT: Normocephalic, atraumatic, conjunctivae moist, sclerae anicteric, mucous membranes moist Lung: Clear to Auscultation bilaterally Heart: Regular rate, regular rhythm, +POONAM Abdomen: Soft, NT, ND +BS x 4 Extremities: + Lumbar region back pain with TTP, no deformities, no BLE edema Skin: Warm, no rash Updated Medication List Medication Instructions Recorded Confirmed Type cholecalciferol (vitamin D3) 25 25 mcg PO DAILY 01/20/23 10/21/24 History mcg (1,000 unit) tablet cyanocobalamin (vitamin B-12) 1,000 mcg PO DAILY 01/20/23 10/21/24 History 1,000 mcg tablet sertraline 100 mg tablet 200 mg PO DAILY 01/20/23 10/21/24 History melatonin 5 mg tablet 5 mg PO HS PRN Insomnia 01/21/23 10/21/24 History vitamins A,C,T-axoo-ixkvxh 2,148 1 tab PO BID 01/21/23 10/21/24 History mcg-113 mg-45 mg-17.4 mg tablet diclofenac sodium 75 mg 75 mg PO DAILY PRN Pain 10/21/24 10/21/24 History tablet,delayed release gabapentin 300 mg capsule 300 mg PO BID #60 caps 10/29/24 Rx oxycodone 5 mg tablet 5 mg PO Q6H PRN pain #8 tabs 10/29/24 Rx Hospital Stay Data Consultations 10/21/24 22:14 ED Decision to Admit Stat 10/22/24 11:07 Consult Orthopedic Surgery Routine Diagnostic Imagining Performed 10/21/24 18:39 CT abd pelvis wo con Stat CT lumbar spine wo con Stat 10/22/24 14:08 MR lumbar spine wo con Urgent Pending Results Patient Have Any Pending Studies at Discharge: No Discharge Instructions Given to Patient (Per Discharging Provider) MEDICATION CHANGES: Continue gabapentin 300mg twice a day for nerve pain. SUMMARY OF TEST RESULTS: You were admitted to hospital secondary to lower back pain. Admitting Lumbar spine CT - age indeterminate superior endplate compression deformity at L4 fever chronic. Degenerative changes most prominent at L4-5 and L5-S1 Evaluated by ortho spine - advised to have injections therapy to assess progress before doing any surgical intervention Scheduled for transforaminal epidural steroid injection right L4-5 section scheduled on 11/12/2024 at 11:15 AM with [facility] Mg[facility] You completed an antibiotic course for UTI during admission RECOMMENDATIONS FOR FOLLOW-UP: Follow up with PCP as scheduled. Home PT/OT coordinated with help of case mgmt. Continue medication regimen as scheduled aside from changes noted above. OTHER INSTRUCTIONS: Seek medical attention if you have: * temperature above 101 * chest pain or trouble breathing * abdominal pain, nausea, vomiting * diarrhea, dark stools or bloody stools * any unanswered questions or concerns Call 911 if symptoms are severe. Please take good care of yourself. Call if you have any questions or problems. You can reach a [facility] hospitalist on duty at [facility] 24 hours a day by calling [phone]. Total Time Total Time Spent Total Time Spent (In Minutes): 40 Supervising Physician Co-Signing Physician Notes Attending addendum: The patient was seen and examined in medical floor She has been feeling much better and her pain is well-controlled with nonnarcotic pain medications Now she wants to go home with home PT On examination Sitting on a chair without any acute distress Remains hemodynamically stable with blood pressure on the upper side at 155/100 Other system examination unremarkable Her medications reviewed She has severe back pain now controlled with current medications She will have out patient injection to control pain further Agree with assessment and plan as outlined above by Melonie Siu PA-C and take the full responsibility of care in the hospital Dr Solo Simon
[2024-10-29 13:15] VITALS: PULSE 86
== END 2024-10-29 15:32 | disposition home health service (06) | DRG 552 ==
LOC: ED 18:25 → EDINP 10-22 01:03 → SUATTDRO 10-22 01:03 → INTOOBSV 10-22 01:03 → 3N 10-22 04:10

== ENCOUNTER 2024-11-01 20:50 | Inpatient (IN) ==
[2024-11-01] MEDS: HYDROmorphone INJ 0.5 MG/0.5 ML SYR IV PRN (23:56)
--- OUTSIDE RECORDS SUMMARY | 2024-11-02 00:08 | External Medical Summary | Summary of Care ---
Author Name Unknown Organization [facility] Address [address] [place] [address] Phone [phone] Care Team Providers Care Green Promotions Specialist Name Role Phone Nadir Roach MD Primary Care Provider + Reason for Visit * Reason Onset Date Comments Hospital Follow-Up 11/01/2024 Encounter Details Date Type Department Care Team (Late st Contact Info) Description 11/01/2024 Telephone General Internal Medicine [facility] [address], [place] [id number] Nadir Roach MD [address] [place] [address] Hospital Follow-Up Allergies No known active allergiesdocumented as of this encounter (statuses as of 11/01/2024) Medications OCUVITE EXTRA PO TABS None Entered Active ZOLOFT 100 MG PO TABS take 2 tabs daily Active VITAMIN D 1000 UNITS PO CAPS one pill each day Active loratadine (CLARITIN) 10 MG TabletIndicati ons:Nasal congestion Take 1 Tab by mouth daily as needed for Rhinitis. 30 Tab 5 9 Active Vitamin B-12 100 MCG Oral Tablet (vitamin B-12) Take 1 Tablet by mouth in the morning. Active Fluticasone Propionate 50 MCG/ACT Nasal SuspensionIndi cations:Nasal congestion,Pos t-nasal drip Administer into each nostril 2 Sprays before bedtime. 2 Active Additional Information Patient taking differently:2 Hurricane Each Nostril HS,As needed, Reported on 10/11/2024 Diclofenac Sodium 75 MG Oral Tablet Delayed Release (Voltaren)Bryanna cations:Acute bilateral low back pain with bilateral sciatica Take 1 Tablet by mouth 2 times a day as needed (Pain). With food. 60 Tablet 3 4 Active Additional Information Patient not taking.Reported on 10/19/2024 Diclofenac Sodium 1 % External Gel (Voltaren) Apply topically to affected area as needed. Active oxyCODONE HCl 5 MG Oral Tablet (Oxy IR) 1 Tablet. 5 Active Gabapentin 300 MG Oral Capsule (Neurontin) TAKE 1 CAPSULE BY MOUTH TWO TIMES DAILY 5 Active Gabapentin 100 MG Oral Capsule (Neurontin)Ind ications:Lumba r radicular pain Take one capsule by mouth one hour prior to bed for three days then increase to one capsule AM and one capsule PM. 60 Capsule 4 11/01/19 25 Discontin ued(Medic ation List Clean Up) documented as of this encounter (statuses as of 11/01/2024) Active Problems Problem Noted Date Diagnosed Date Moderate aortic stenosis 08/25/2020 Moderate mitral regurgitation 08/25/2020 POLST (Physician Orders for Life-Sustaining Karen tment) 02/03/2019 Major depressive disorder wi th single episode, 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 Mixed hyperlipidemia 07/30/2017 documented as of this encounter (statuses as of 11/01/2024) Resolved Problems Problem Noted Date Diagnosed Date [...] as of this encounter (statuses as of 11/01/2024) Immunizations Name Administration Dates Next Due COVID-19 mRNA, LNP-s, No Pre serve, 2-Dose Series (Moderna) 08/30/2023,12/28/2020,11/30/2020 COVID-19, MRNA-LNP, PF, 50 M CG/0.5 mL, 12 YRS AND ABOVE, IM (MODERNA-Spikevax) 07/21/2024 COVID-19, mRNA, LNP-s, PF, B ooster, 100mcg/0.5mg (Moderna) 04/08/2022,08/31/2021 Covid-19, Mrna, Lnp-s, Pf, B ivalent, 30 Mcg, IM, 12 yrs and above (Pfizer) 07/30/2022 Diptheria/Tetanus (Adult) 02/24/1994 Pneumococcal Conjugate Vacc, 13 Valent (Prevnar) 07/30/2017 Pneumococcal Polysaccharide PPV23 (Pneumovax) 06/27/2011 RSV Vac., Recomb, Adjuvant, PF,0.5 Ml (Arexvy) 07/07/2023 Seasonal Influenza Vac., MDV , IM, 0.5 mL (Fluzone) 08/02/2014,09/03/2013,10/07/2012,06/27,08/07/2010,08/10/2002,09/23/2000 Seasonal Influenza, PF, 6 M & above, [...] encounter Miscellaneous Notes * Telephone Encounter - Joanie Guevara RN - 11/01/2024 1:35 PM EST Provider to address: Reason for Call: Hospital Follow-Up Contact: Telephone Call Contact Type: Advice Provider In-Basket: Yes Outcome: Again spoke with patient, reiterated Dr. Parish recommendation to go back to the ER. The patient states "I'm not going to do that" she states she will try to call the [facility] to speak withDr. Bailey who she consulted with while inpatient to see if she has a different recommendation forpain. She reports that she is tolerating pain at this time, but it is because she is still lying flat in her bed and not wanting to get up. Face to face time spent with Patient (minutes): 0 Total Time including non face to face (minutes): 10 Also did call [facility] pain management to discuss follow up, left a voicemail on their secure scheduling line to call back. * Telephone Encounter - Nadir Roach MD - 11/01/2024 1:14 PM EST If pain is that severe, go to ER Please schedule hospital follow up with us for evaluation, pain med discussion Can call pain mgmt to see if can be moved up, but looks like want her off abx for 2 weeks * Telephone Encounter - Joanie Guevara RN - 11/01/2024 12:43 PM EST Called patient back. She is unwilling to return to the ER, states that "it would be unhelpful and awaste of time". Also due to weather does not want to go anywhere today. She prefers to try to get pain better managed at home. She has had some relief after taking Tylenol 500mg, Neurontin 300 mg andoxycodone 5mg. Reporting this is the [facility]. She is still "laying flat on my back". She is asking if she can try a higher dose of oxycodone? Or if the pain management visit can be expedited, she is currently scheduled with Dr. Ramos on 11/12 and feels this is too far out to wait. Dr. Roach, Please advise? Copied pain management note below from [facility] while patient was admitted. Consultation date was 10/23. Thank you Plan 1. Discussed the patient's MRI results with her in detail and answered all of her questions. Suspect right anterior tibial pain to be secondary to lumbar radiculopathy given moderate neuroforaminal stenosis at right L4-5. Ideally she would be an excellent candidate for a right L4-5 transforaminal epidural steroid however in light of her urinary tract infection requiring IV ceftriaxone will hold at this time and have her scheduled as an outpatient. We discussed her returning to [facility] for injection but she states this is scheduled in December and wishes to be seen at [facility]'s pain management instead. Will work with my office to facilitate her appointment once she has been off antibiotics for 2 weeks for her urinary tract infection. All questions regarding this were answered. 2. In the meantime, recommend utilization of Lidoderm patch, initiation of gabapentin 300 mg p.o. twice daily and continuation of oxycodone 5 mg p.o. every 4 as needed pain. 3. Agree with PT consult as an outpatient once she is able to participate. 4. Thank you for this consultation we will see her back in follow-up in our office. * Telephone Encounter - Raven Romero LPN - 11/01/2024 12:22 PM EST Patient calling back: She immediately asked for Joanie, she did not want to discuss information with me. I reached out to Joanie via team, she was assisting another patient at this time. I asked patient again if I could assist her, she declined and only wants to talk with Joanie. Asking if Joanie will call her back: * Telephone Encounter - Joanie Guevara RN - 11/01/2024 10:34 AM EST Images from the original note were not included. Transitions of Care Note Reason for Referral:Recent Admission Phone visit for follow up: DOMINGUEZ Admitted to: [facility], Date: 10/21 Discharged to: Home, Date: 10/29/25 Diagnosis driving hospitalization: Severe back pain, ambulatory dysfunction Source/Contact: Patient SUBJECTIVE Consent: Verbal consent for review of hospital discharge: Yes REVIEW OF SYSTEMS Patient/Other Reports: Current patient/caregiver problems or concerns: patients significant pain returned this morning. She is laying in bed feels she cannot move, she has just taken her pain medication approx 15 minutes ago and is awaiting to see if they are any help, if not she feels she will have to go back to the ER.She is scheduled for a spinal injection on 11/12, but cannot wait that long. Reports pain is "excruciating" CV: Denies problems Pulmonary: Denies problems Chills/Sweats/Fever:Denies chills/sweats Denies fever Appetite:Denies problems such as nausea, vomiting, burning, decreased appetite Current diet: regular Bowel: denies problems Bladder: denies problems Wound (If applicable): N/A Pain: severe - see above note Sleep:Denies problems FUNCTIONAL STATUS: ADL'S: Needs Assistance With:Transferring IADL'S: Needs Assistance With:Attending to safety, unable to perform ADLs at this time Cognitive and Mental Health: denies problems, alert and oriented x 3, and able to communicate, understand instructions, process information. MEDICATION RECONCILIATION Medications: New medication(s) filled since hospitalization- oxycodone 5mg and gabapentin 300 mg OBJECTIVE ASSESSMENT Medication Risk Assessment: No risks identified Did patient fail outpatient treatment? Yes Discharge instructions available for review? Yes PLAN Symptom Monitoring Interventions:Member/caregiver education - signs and symptoms to contact PrimaryCare (DO NOT DELETE-Three [place] symptoms patient is to report to PCP) 1. Uncontrolled pain 2. Falls/injury 3. Inability to perform ADLs Automobile Accessories InstallerJava Lead of Care interventions/Action Plan: Patient would like to call the office back in a bout an hour to update, if pain still severe she will need to return to the ER Educated on role of DOMINGUEZ completed with patient/caregiver. Educated patient/caregiver on patient right to have input on DOMINGUEZ plan of care. Verification of Home Health/DME if indicated: YES [facility] ordered Identified Care Gaps: Yes Care Gaps closed this call: Medication optimization and Transition of Care follow-up communication Re-evaluation of Plan of Care and progress towards goals achievement: Patient education this visit: Verbal, as above Plan to instructed to call Primary Care Provider with change in symptoms or as needed before next follow-up, verbalizes understanding and agrees with plan. Joanie Guevara RN documented in this encounter Plan of Treatment Upcoming Encounters Date Type Department Care Team (Late st Contact Info) Description 08/08/2025 3:00 PM EDT Cardiac Studies Cardiac Studies, [facility] [address] [place] [address] 09/08/2025 10:20 AM EST Office Visit General Internal Medicine [facility] [address] [facility] [place] [address] Nadir Roach MD [address] [facility] [place] [address] Health Maintenance Due Date Last Done Comments Adult Wellness Visit 2004 Influenza Vaccine (FLU shot) (#1) 2024 08/23/2022, 08/24/2021, 08/18/2020, Additional history exists Depression Monitoring 09/03/2024 09/03/2023 DTap/Tdap Vaccines (2 - Td or Tdap) 08/19/2029 08/19/2019, 06/27/2011, 06/27/2011, Additional history exists DXA Scan Discontinued 07/19/2014, 06/28, 07/03/2011, Additional history exists Pneumococcal Vaccine: 50+ Years Completed 07/30/2017, 06/27/2011 Zoster Vaccines Completed [...] Not on filedocumented as of this encounter Advance Directives Documents on File Type Date Recorded Patient Signs And Displays Sales Representative Expl anation POLST 02/03/2019 POLST Advance Directives and Living Will 05/24/2005 LIVING WILL Care Teams Green Promotions Specialist Relationship Specialty Start Date End Date Nadir Roach MD [address] [place] [address] PCP - General Internal Medicine 12/16/18 documented as of this encounter
--- OUTSIDE RECORDS SUMMARY | 2024-11-02 00:09 | External Medical Summary | Summary of Care ---
Author Name Unknown Organization [facility] Address [address] [place] [address] Phone [phone] Care Team Providers Care Automation Engineering Technician Name Role Phone Nadir Roach MD Primary Care Provider + Encounter Details Date Type Department Care Team (Late st Contact Info) Description 10/22/2024 Orders Only General Internal Medicine [facility] [address] [place], [place] [phone] Cristo Kingston, DO [address] [place] [address] Allergies No known active allergiesdocumented as of this encounter (statuses as of 10/26/2024) Medications OCUVITE EXTRA PO TABS None Entered [...] 2 Active Additional Information Patient taking differently:2 [place] Each Nostril HS,As needed, Reported on 10/11/2024 [...] as of this encounter (statuses as of 10/26/2024) Active Problems Problem Noted Date Diagnosed Date Moderate aortic stenosis 08/25/2020 Moderate mitral regurgitation 08/25/2020 POLST (Physician Orders for Life-Sustaining Karen tment) 02/03/2019 Major depressive disorder wi th single episode, 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 Mixed hyperlipidemia 07/30/2017 documented as of this encounter (statuses as of 10/26/2024) Resolved Problems Problem Noted Date Diagnosed Date [...] as of this encounter (statuses as of 10/26/2024) Immunizations Name Administration Dates Next Due COVID-19 [...] on file documented as of this encounter Plan of Treatment Upcoming Encounters Date Type Department Care Team (Late st Contact Info) Description 08/08/2025 3:00 PM EDT Cardiac Studies Cardiac Studies, [facility] [address] [facility] [place] [address] 09/08/2025 10:20 AM EST Office Visit General Internal Medicine [facility] [address] [place] [address] Nadir Roach MD [address] [facility] [place] [address] Health Maintenance Due Date Last Done Comments [...] Not on filedocumented as of this encounter Procedures Procedure Name Priority Date/Time Associated Diagnosis Comments RADIOLOGY EXAM - MRI (IMAGES ONLY, NO REPORT) Routine 10/22/2024 4:30 PM EST documented in this encounter Results * RADIOLOGY EXAM - MRI (IMAGES ONLY, NO REPORT) (10/22/2024 4:30 PM EST) 10/22/2024 4:28 PM EST Narrative Scheduling, Silent - 10/26/2024 8:46 AM EST This is an imaging study not interpreted or resulted by a [employer] or [employer] contracted radiologist. Cristo Kingston DO RAD MRI-MRA Kandice l Result documented in this encounter Advance Directives Documents on File Type Date Recorded Patient Building Engineer Expl anation POLST 02/03/2019 POLST Advance Directives and Living Will 05/24/2005 LIVING WILL Care Teams Automation Engineering Technician Relationship Specialty Start Date End Date Nadir Roach MD [address] [place] [address] PCP - General Internal Medicine 12/16/18 documented as of this encounter
--- OUTSIDE RECORDS SUMMARY | 2024-11-02 00:09 | External Medical Summary | Summary of Care ---
Author Name Unknown Organization [facility] Address [address] [place] [address] Phone [phone] Care Team Providers Care Consumer Affairs Specialist Name Role Phone Nadir Roach MD Primary Care Provider + Reason for Visit * Reason Onset Date Comments Home Health 10/29/2024 Encounter Details Date Type Department Care Team (Late st Contact Info) Description 10/29/2024 Telephone General Internal Medicine [facility] [address] [place] [address] Nadir Roach MD [address] [place] [address] Home Health Allergies No known active allergiesdocumented as of this encounter (statuses as of 10/29/2024) Medications OCUVITE EXTRA PO TABS None Entered [...] 2 Active Additional Information Patient taking differently:2 [place] Each Nostril HS,As needed, Reported on 10/11/2024 [...] as of this encounter (statuses as of 10/29/2024) Active Problems Problem Noted Date Diagnosed Date Moderate aortic stenosis 08/25/2020 Moderate mitral regurgitation 08/25/2020 POLST (Physician Orders for Life-Sustaining Karen tment) 02/03/2019 Major depressive disorder wi th single episode, 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 is calling to f/u and see if Hosp D/C appt was scheduled. Made Lulu aware that it was scheduled 11/04 and orders would be signed by PCP. 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 from 10/22 to 10/29/24 Referral ordered by: [facility] Referral received for: PT and OT Planned start of care date within 48 hours of discharge Start of care completed on: within 48 hours of discharge Narrative: Lulu calling from [facility]. Asking for start of care orders. Informed no follow up at this time. Unable to give verbal order until patient has a follow up appt. Lulu will call [place] case therapist and let them know a follow up is needed. Next Nursing visit(s) on They will call with any updates or additional concerns from the upcoming HH visit. Last Office Visit: 10/11/2024 Has patient been scheduled or seen in the office for a follow up visit: Needs contacted to schedulefollow up Advised that orders will be signed by Dr. Roach when follow up appointment is made. and to faxto the office for signature. Call back Lulu with advice or orders at [phone] Please fax orders to [phone] documented in this encounter Plan of Treatment Upcoming Encounters Date Type Department Care Team (Late st Contact Info) Description 11/04/2024 11:20 AM EST Office Visit General Internal Medicine [facility] [address] [place] [address] Franchesca Gomes MD [address] [facility] [place] [address] 08/08/2025 3:00 PM EDT Cardiac Studies Cardiac Studies, [facility] 132 [facility] [place] [address] 09/08/2025 10:20 AM EST Office Visit General Internal Medicine [facility] [address] [place] [address] Nadir Roach MD [address] [facility] [place] [address] Health Maintenance Due Date Last Done Comments [...] Documents on File Type Date Recorded Patient Knife Operator Expl anation POLST 02/03/2019 POLST Advance Directives and Living Will 05/24/2005 LIVING WILL Care Teams Consumer Affairs Specialist Relationship Specialty Start Date End Date Nadir Roach MD [address] [place] [address] PCP - General Internal Medicine 12/16/18 documented as of this encounter
--- OUTSIDE RECORDS SUMMARY | 2024-11-02 00:09 | External Medical Summary | Summary of Care ---
Author Name Unknown Organization [facility] Address [address] [place] [address] Phone [phone] Care Team Providers Care Cell Repairer Name Role Phone Nadir Roach MD Primary Care Provider + Encounter Details Date Type Department Care Team (Latest Contact Info) Description 10/23/2024 10:25 AM EST - 10/23/2024 11:59 PM EST Hospital Encounter Radiology Film File [address] [place] [address] Discharge Disposition: Home - Self Care Allergies No known active allergiesdocumented as of this encounter (statuses as of 10/27/2024) Medications OCUVITE EXTRA PO TABS None Entered [...] 2 Active Additional Information Patient taking differently:2 [place] Each Nostril HS,As needed, Reported on 10/11/2024 [...] as of this encounter (statuses as of 10/27/2024) Active Problems Problem Noted Date Diagnosed Date Moderate aortic stenosis 08/25/2020 Moderate mitral regurgitation 08/25/2020 POLST (Physician Orders for Life-Sustaining Karen tment) 02/03/2019 Major depressive disorder wi th single episode, 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 Mixed hyperlipidemia 07/30/2017 documented as of this encounter (statuses as of 10/27/2024) Resolved Problems Problem Noted Date Diagnosed Date [...] as of this encounter (statuses as of 10/27/2024) Immunizations Name Administration Dates Next Due COVID-19 [...] 3:00 PM EDT Cardiac Studies Cardiac Studies, [facility] 132 [facility] [place] [address] 09/08/2025 10:20 AM EST Office Visit General Internal Medicine [facility] 200 [facility] [place] [address] Nadir Roach MD 200 [facility] [place] [address] Health Maintenance Due Date Last Done Comments [...] Date/Time Associated Diagnosis Comments RADIOLOGY EXAM - GENERAL RAD (IMAGES ONLY,NO REPORT) Routine 10/23/2024 10:25 AM EST documented in this encounter Results * RADIOLOGY EXAM - GENERAL RAD (IMAGES ONLY,NO REPORT) (10/23/2024 10:25 AM EST) 10/23/2024 10:2 4 AM EST Narrative Scheduling, Silent - 10/26/2024 8:44 AM EST This is an imaging study not interpreted or resulted by a [facility] or [employer] contracted radiologist. Cristo [place] DO RADIOLOGY (RAD GENER AL) Final Result documented in this encounter Advance Directives Documents on File Type Date Recorded Patient Education And Training Coordinator Expl anation POL 02/03/2019 POLST Advance Directives and Living Will 05/24/2005 LIVING WILL Care Teams Cell Repairer Relationship Specialty Start Date End Date Nadir Roach MD 200 [place] [address] PCP - General Internal Medicine 12/16/18 documented as of this encounter
--- OUTSIDE RECORDS SUMMARY | 2024-11-02 00:09 | External Medical Summary | Summary of Care ---
Author Name Unknown Organization [facility] Address [address] [place] [address] Phone [phone] Care Team Providers Care Branch Service Representative Name Role Phone Nadir Roach MD Primary Care Provider + Reason for Visit * Reason Onset Date Comments Hospital Follow-Up 11/01/2024 Encounter Details Date Type Department Care Team (Late st Contact Info) Description 11/01/2024 Telephone General Internal Medicine [facility] [address] [place], [place] [phone] Nadir Roach MD 200 [place] [address] Hospital Follow-Up Allergies No known active allergiesdocumented [...] 2 Active Additional Information Patient taking differently:2 [place] Each Nostril HS,As needed, Reported on 10/11/2024 [...] visit for follow up: DOMINGUEZ Admitted to: [facility], Date: 10/21 Discharged to: Home, Date: 10/29/25 [...] 2. Falls/injury 3. Inability to perform ADLs Gum Scoring Machine OperatorSalad Maker of Care interventions/Action Plan: Patient would like [...] 3:00 PM EDT Cardiac Studies Cardiac Studies, [facility] 132 [facility] [place] [address] 09/08/2025 10:20 AM EST Office Visit General Internal Medicine [facility] [address] [place] [address] Nadir Roach MD [address] [place], [place] [address] Health Maintenance Due Date Last Done Comments [...] Documents on File Type Date Recorded Patient Executive Director Expl anation POL 02/03/2019 POLST Advance Directives and Living Will 05/24/2005 LIVING WILL Care Teams Branch Service Representative Relationship Specialty Start Date End Date Nadir Roach MD [address] [place] [address] [address] PCP - General Internal Medicine 12/16/18 documented as of this encounter
--- OUTSIDE RECORDS SUMMARY | 2024-11-02 00:09 | External Medical Summary | Summary of Care ---
Author Name Unknown Organization [facility] Address [address] [place] [address] Phone [phone] Care Team Providers Care Disk Operator Name Role Phone Nadir Roach MD Primary Care Provider + Reason for Visit * Reason Onset Date Comments Hospital Follow-Up 11/01/2024 Encounter Details Date Type Department Care Team (Late st Contact Info) Description 11/01/2024 Telephone General Internal Medicine [facility] [address] [place], [place] [phone] Nadir Roach MD 200 [place] [address] Hospital Follow-Up Allergies No known active allergiesdocumented [...] 2 Active Additional Information Patient taking differently:2 [place] Each Nostril HS,As needed, Reported on 10/11/2024 [...] encounter Miscellaneous Notes * Telephone Encounter - Nadir Roach MD [...] [facility]. She is still "laying flat on my back". She is asking if she can try a higher dose of oxycodone? Or if the pain management visit can be expedited, she is currently scheduled with Dr. Ramos on 11/12 and feels this is too far out to wait. Dr. Roach, Please advise? Copied pain management note below from [facility] while patient was admitted. Consultation [...] an outpatient. We discussed her returning to [facility] for injection but she states this is scheduled in December and wishes to be seen at [facility]'s pain management instead. Will work with [...] visit for follow up: DOMINGUEZ Admitted to: [facility], Date: 10/21 Discharged to: Home, Date: [...] 2. Falls/injury 3. Inability to perform ADLs Dictaphone OperatorTransportation Broker of Care interventions/Action Plan: Patient would like [...] 3:00 PM EDT Cardiac Studies Cardiac Studies, [facility] 132 [facility] [place] [address] 09/08/2025 10:20 AM EST Office Visit General Internal Medicine [facility] [address] [place] [address] Nadir Roach MD 200 [facility] [place] [address] Health Maintenance Due Date Last Done Comments [...] Documents on File Type Date Recorded Patient Skinning Machine Feeder Expl anation POLST 02/03/2019 POLST Advance Directives and Living Will 05/24/2005 LIVING WILL Care Teams Disk Operator Relationship Specialty Start Date End Date Nadir Roach MD [address] [place] [address] PCP - General Internal Medicine 12/16/18 documented as of this encounter
--- OUTSIDE RECORDS SUMMARY | 2024-11-02 00:09 | External Medical Summary | Summary of Care ---
Author Name Unknown Organization [facility] Address [address] [place] [address] Phone [phone] Care Team Providers Care Engine Assembler Name Role Phone Nadir Roach MD Primary Care Provider + Encounter Details Date Type Department Care Team (Late st Contact Info) Description 10/21/2024 Orders Only General Internal Medicine [facility] 200 [facility] [place] [place], [place] [address] Cristo [place], DO 200 [place] [address] Allergies No known active allergiesdocumented as of [...] 2 Active Additional Information Patient taking differently:2 [place] Each Nostril HS,As needed, Reported on 10/11/2024 [...] 3:00 PM EDT Cardiac Studies Cardiac Studies, [facility] 132 [facility] [place] [address] 09/08/2025 10:20 AM EST Office Visit General Internal Medicine [facility] 200 [facility] [place] [address] Nadir Roach MD 200 [facility] [place] [address] Health Maintenance Due Date Last Done Comments [...] Date/Time Associated Diagnosis Comments RADIOLOGY EXAM - CT (IMAGES ONLY, NO REPORT) Routine 10/21/2024 8:15 PM EST documented in this encounter Results * RADIOLOGY EXAM - CT (IMAGES ONLY, NO REPORT) (10/21/2024 8:15 PM EST) 10/21/2024 8:14 PM EST Narrative Scheduling, Silent - 10/26/2024 8:47 AM EST This is an imaging study not interpreted or resulted by a [employer] or [email or web address] contracted radiologist. Cristo [place] DO RAD CT Kandice l Result documented in this encounter Advance Directives Documents on File Type Date Recorded Patient Taker Away Expl anation POLST 02/03/2019 POLST Advance Directives and Living Will 05/24/2005 LIVING WILL Care Teams Engine Assembler Relationship Specialty Start Date End Date Nadir Roach MD 200 [place] [address] PCP - General Internal Medicine 12/16/18 documented as of this encounter
--- OUTSIDE RECORDS SUMMARY | 2024-11-02 00:09 | External Medical Summary | Summary of Care ---
Author Name Unknown Organization [facility] Address [address] [place] [address] Phone [phone] Care Team Providers Care Chute Man Name Role Phone Nadir Roach MD Primary Care Provider + Encounter Details Date Type Department Care Team (Latest Contact Info) Description 10/21/2024 8:15 PM EST - 10/21/2024 11:59 PM EST Hospital Encounter Radiology Film File [address] [place] [address] Discharge Disposition: Home - Self [...] 2 Active Additional Information Patient taking differently:2 [place] Each Nostril HS,As needed, Reported on 10/11/2024 [...] 3:00 PM EDT Cardiac Studies Cardiac Studies, [facility] 132 [facility] [place] [address] 09/08/2025 10:20 AM EST Office Visit General Internal Medicine [facility] 200 [facility] [place] [address] Nadir Roach MD 200 [facility] [place] [address] Health Maintenance Due Date Last Done Comments [...] study not interpreted or resulted by a [employer] or [employer] contracted radiologist. Cristo [place] DO RAD CT Kandice l Result documented in this encounter Advance Directives Documents on File Type Date Recorded Patient Supervisor Frame Sample And Pattern Expl anation POLST 02/03/2019 POLST Advance Directives and Living Will 05/24/2005 LIVING WILL Care Teams Chute Man Relationship Specialty Start Date End Date Nadir Roach MD 200 [place] [address] PCP - General Internal Medicine 12/16/18 documented as of this encounter
--- OUTSIDE RECORDS SUMMARY | 2024-11-02 00:09 | External Medical Summary | Summary of Care ---
Author Name Unknown Organization [facility] Address [address] [place] [address] Phone [phone] Care Team Providers Care Customer Program Specialist Name Role Phone Nadir Roach MD Primary Care Provider + Reason for Visit * Reason Onset Date Comments Hospital Follow-Up 11/01/2024 Encounter Details Date Type Department Care Team (Late st Contact Info) Description 11/01/2024 Telephone General Internal Medicine [facility] [address] [place], [place] [phone] Nadir Roach MD 200 [place] [address] Hospital Follow-Up Allergies No known active allergiesdocumented [...] 2 Active Additional Information Patient taking differently:2 [place] Each Nostril HS,As needed, Reported on [...] Miscellaneous Notes * Telephone Encounter - Joanie Guevara, SHAYAN - 11/01/2024 12:43 PM EST Called patient [...] [facility]. She is still "laying flat on my back". She is asking if she can try a higher dose of oxycodone? Or if the pain management visit can be expedited, she is currently scheduled with Dr. Ramos on 11/12 and feels this is too far out to wait. Dr. Roach, Please advise? Copied pain management note below from [facility] while patient was admitted. Consultation date was [...] an outpatient. We discussed her returning to [facility] for injection but she states this is scheduled in December and wishes to be seen at [facility]'s pain management instead. Will work with [...] visit for follow up: DOMINGUEZ Admitted to: [facility], Date: 10/21 Discharged to: Home, Date: [...] symptoms to contact [facility] (DO NOT DELETE-Three hollign[place] symptoms patient is to report to PCP) 1. Uncontrolled pain 2. Falls/injury 3. Inability to perform ADLs Six Sigma Black TrainerCreative Lead of Care interventions/Action Plan: Patient would [...] PM EDT Cardiac Studies Cardiac Studies, [facility] 132 [facility] [place] [address] 09/08/2025 10:20 AM EST Office Visit General Internal Medicine [facility] 200 [facility] [place] [address] Nadir Roach MD 200 [facility] [place] [address] Health Maintenance Due Date Last Done Comments [...] Documents on File Type Date Recorded Patient Manager Neonatal Expl anation POLST 02/03/2019 POLST Advance Directives and Living Will 05/24/2005 LIVING WILL Care Teams Customer Program Specialist Relationship Specialty Start Date End Date Nadir Roach MD [address] [place] [address] PCP - General Internal Medicine 12/16/18 documented as of this encounter
--- OUTSIDE RECORDS SUMMARY | 2024-11-02 00:09 | External Medical Summary | Summary of Care ---
Author Name Unknown Organization [facility] Address [address] [place] [address] Phone [phone] Care Team Providers Care Dairy Technologist Name Role Phone Nadir Roach MD Primary Care Provider + Encounter Details Date Type Department Care Team (Late st Contact Info) Description 10/23/2024 Orders Only General Internal Medicine [facility] 200 [facility] [place], [place] [phone] Cristo [place], DO 200 [place] [address] Allergies No known active allergiesdocumented as of [...] 2 Active Additional Information Patient taking differently:2 [place] Each Nostril HS,As needed, Reported on 10/11/2024 [...] 3:00 PM EDT Cardiac Studies Cardiac Studies, [facility] 132 [facility] [place] [address] 09/08/2025 10:20 AM EST Office Visit General Internal Medicine [facility] 200 [facility] [place] [address] Nadir Roach MD 200 [facility] [place] [address] Health Maintenance Due Date Last Done Comments [...] interpreted or resulted by a [facility] or [employer] contracted radiologist. Cristo [place] DO RADIOLOGY (RAD GENER AL) Final Result documented in this encounter Advance Directives Documents on File Type Date Recorded Patient Information Coder Expl anation POLST 02/03/2019 POLST Advance Directives and Living Will 05/24/2005 LIVING WILL Care Teams Dairy Technologist Relationship Specialty Start Date End Date Nadir Roach MD [address] [place] [address] [place] [address] PCP - General Internal Medicine 12/16/18 documented as of this encounter
--- OUTSIDE RECORDS SUMMARY | 2024-11-02 00:09 | External Medical Summary | Summary of Care ---
Author Name Unknown Organization [facility] Address [address] [place] [address] Phone [phone] Care Team Providers Care Day Spa Manager Name Role Phone Nadir Roach MD Primary Care Provider + Encounter Details Date Type Department Care Team (Latest Contact Info) Description 10/22/2024 4:30 PM EST - 10/22/2024 11:59 PM EST Hospital Encounter Radiology Film File [address] [place] [address] Discharge Disposition: Home - Self [...] 2 Active Additional Information Patient taking differently:2 [place] Each Nostril HS,As needed, Reported on 10/11/2024 [...] 3:00 PM EDT Cardiac Studies Cardiac Studies, [facility] 132 [facility] [place] [address] 09/08/2025 10:20 AM EST Office Visit General Internal Medicine [facility] 200 [facility] [place] [address] Nadir Roach MD 200 [facility] [place] [address] Health Maintenance Due Date Last Done Comments [...] interpreted or resulted by a [facility] or [employer] contracted radiologist. Cristo [place] DO RAD MRI-MRA Kandice l Result documented in this encounter Advance Directives Documents on File Type Date Recorded Patient Donor Relations Coordinator Expl anation POLST 02/03/2019 POLST Advance Directives and Living Will 05/24/2005 LIVING WILL Care Teams Day Spa Manager Relationship Specialty Start Date End Date Nadir Roach MD 200 [place] [address] PCP - General Internal Medicine 12/16/18 documented as of this encounter
--- OUTSIDE RECORDS SUMMARY | 2024-11-02 00:09 | External Medical Summary | Summary of Care ---
Author Name Unknown Organization [facility] Address [address] [place] [address] Phone [phone] Care Team Providers Care Mechanical Insulator Name Role Phone Nadir Roach MD Primary Care Provider + Reason for Visit * Reason Onset Date Comments Hospital Follow-Up 11/01/2024 Encounter Details Date Type Department Care Team (Late st Contact Info) Description 11/01/2024 Telephone General Internal Medicine [facility] 200 [place], [place] [phone] Nadir Roahc MD 200 [place] [address] Hospital Follow-Up Allergies No known active allergiesdocumented [...] 2 Active Additional Information Patient taking differently:2 [place] Each Nostril HS,As needed, Reported on 10/11/2024 [...] states she will try to call the [facility] to speak withDr. Bailey who she consulted [...] including non face to face (minutes): 10 * Telephone Encounter - Nadir Roach MD [...] pills she was sent home with from [facility]. She is still "laying flat on my back". She is asking if she can try a higher dose of oxycodone? Or if the pain management visit can be expedited, she is currently scheduled with Dr. Ramos on 11/12 and feels this is too far out to wait. Dr. Roach, Please advise? Copied pain management note below from [facility] while patient was admitted. Consultation [...] an outpatient. We discussed her returning to [facility] for injection but she states this is scheduled in December and wishes to be seen at [facility]'s pain management instead. Will work with my [...] visit for follow up: DOMINGUEZ Admitted to: [facility], Date: 10/21 Discharged to: Home, Date: 10/29/25 [...] 2. Falls/injury 3. Inability to perform ADLs Employee Relations RepresentativeTimber Grader of Care interventions/Action Plan: Patient would like [...] 3:00 PM EDT Cardiac Studies Cardiac Studies, [facility] [address] [place] [address] 09/08/2025 10:20 AM EST Office Visit General Internal Medicine [place] [place] [address] [place] [address] Nadir Roach MD 200 [facility] [place] [address] Health Maintenance Due Date Last Done Comments [...] Documents on File Type Date Recorded Patient Milking Worker Expl anation POLST 02/03/2019 POLST Advance Directives and Living Will 05/24/2005 LIVING WILL Care Teams Mechanical Insulator Relationship Specialty Start Date End Date Nadir Roach MD [address] [place] [address] PCP - General Internal Medicine 12/16/18 documented as of this encounter
--- OUTSIDE RECORDS SUMMARY | 2024-11-02 00:09 | External Medical Summary | Summary of Care ---
Author Name Unknown Organization [facility] Address [address] [place] [address] Phone [phone] Care Team Providers Care Balance Wheel Facer Name Role Phone Nadir Roach MD Primary Care Provider + Reason for Visit * Reason Onset Date Comments Hospital Follow-Up 11/01/2024 Encounter Details Date Type Department Care Team (Late st Contact Info) Description 11/01/2024 Telephone General Internal Medicine [facility] [address] [place], [place] [id number] Nadir Roach MD [address] [place] [address] Hospital Follow-Up Allergies No known active allergiesdocumented [...] 2 Active Additional Information Patient taking differently:2 Ida Each Nostril HS,As needed, Reported on 10/11/2024 [...] encounter Miscellaneous Notes * Telephone Encounter - Raven Romero LPN [...] for follow up: DOMINGUEZ Admitted to: [facility], Date: 10/21 Discharged to: Home, Date: [...] 2. Falls/injury 3. Inability to perform ADLs RechargerCard Doffer of Care interventions/Action Plan: Patient would like [...] verbalizes understanding and agrees with plan. Joanie Guevara, RN documented in this encounter Plan of Treatment Upcoming Encounters Date Type Department Care Team (Late st Contact Info) Description 08/08/2025 3:00 PM EDT Cardiac Studies [facility] [address] [facility] [place] [address] 09/08/2025 10:20 AM EST Office Visit General Internal Medicine [facility] [address] [facility] [place] [address] Nadir Roach MD [address] [facility] [place] [address] Health Maintenance Due Date Last Done Comments [...] Documents on File Type Date Recorded Patient Basin Operator Expl anation POLST 02/03/2019 POLST Advance Directives and Living Will 05/24/2005 LIVING WILL Care Teams Balance Wheel Facer Relationship Specialty Start Date End Date Nadir Roach MD 200 [place] [address] PCP - General Internal Medicine 12/16/18 documented as of this encounter
--- OUTSIDE RECORDS SUMMARY | 2024-11-02 00:10 | External Medical Summary | Summary of Care ---
Author Name Unknown Organization [facility] Address [address] [place] [address] Phone [phone] Care Team Providers Care Order Dispatcher Name Role Phone Nadir Roach MD Primary Care Provider + Reason for Visit * Reason Onset Date Comments FYI 10/22/2024 Encounter Details Date Type Department Care Team (Late st Contact Info) Description 10/22/2024 Telephone General Internal Medicine [facility] [address] [place] [address] Nadir Roach MD [address] [place] [address] FYI Allergies No known active allergiesdocumented as of this encounter (statuses as of 10/22/2024) Medications OCUVITE EXTRA PO TABS None Entered [...] 2 Active Additional Information Patient taking differently:2 [place] Each Nostril HS,As needed, Reported on 10/11/2024 [...] as of this encounter (statuses as of 10/22/2024) Active Problems Problem Noted Date Diagnosed Date Moderate aortic stenosis 08/25/2020 Moderate mitral regurgitation 08/25/2020 POLST (Physician Orders for Life-Sustaining Karen tment) 02/03/2019 Major depressive disorder wi th single episode, 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 Mixed hyperlipidemia 07/30/2017 documented as of this encounter (statuses as of 10/22/2024) Resolved Problems Problem Noted Date Diagnosed Date [...] as of this encounter (statuses as of 10/22/2024) Immunizations Name Administration Dates Next Due COVID-19 [...] encounter Miscellaneous Notes * Telephone Encounter - Salud Gastelum OSA - 10/22/2024 10:27 AM EST Spine surg ref faxed to [facility] Fax successful documented in this encounter Plan of Treatment Upcoming Encounters Date Type Department Care Team (Latest Contact Info) Description 11/19/2024 1:15 PM EST Imaging Radiology [address] [place] [address] 01/07/2025 12:30 PM EDT Hospital Encounter OR [facility], Operating Room [facility] [address] [place] [id number] Santhosh Lowe DO [address] [place] [address] 01/07/2025 12:30 PM EDT - 01/07/2025 12:57 PM EDT Surgery OR [facility], Operating Room [facility] [address] [place] [id number] Santhosh Lowe DO [address] [place] [address] INJECTION SPINE LUMBAR OR SACRAL 08/08/2025 3:00 PM EDT Cardiac Studies Cardiac Studies, Pura Grayson Ruth [address] [place] [address] 09/08/2025 10:20 AM EST Office Visit General Internal Medicine Tien Thrasher Ruth 200 [facility] [place] [address] Nadir Roach MD 200 [facility] [place] [address] Scheduled Procedures Name Priority Associated Diagnoses Date/Ti [...] Documents on File Type Date Recorded 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
[2024-11-02 00:12] LABS: Appearance Urine Clear (Clear); Bilirubin Urine Negative (Negative); Blood Urine Negative (Negative); Color Urine Yellow; Glucose Urine UA Negative (Negative); Ketones Urine Negative (Negative); Leukocyte Esterase Urine Negative (Negative); Nitrite Urine Negative (Negative); Protein Urine Negative (Negative); Urobilinogen Urine Negative (Negative); pH Urine 6.5 (4.5-7.5)
[2024-11-02 00:17] LABS: Basophils # (auto) 0.01 K/uL (0.00-0.20); Basophils % (auto) 0.2 %; Eosinophils # (auto) 0.18 K/uL (0.00-0.50); Eosinophils % (auto) 3.5 %; Hematocrit (blood only) 38.7 % (37.0-47.0); Hemoglobin 12.8 g/dl (12.0-16.0); Immature Granulocytes # (auto) 0.01 K/uL (0.01-0.20); Immature Granulocytes % (auto) 0.2 %; Lymphocytes # (auto) 0.96 K/uL (1.20-3.40); Lymphocytes % (auto) 18.4 %; Mean Corpuscular Hemoglobin 28.4 pg (25.0-34.0); Mean Corpuscular Hgb Conc 33.1 g/dL (32.0-36.0); Monocytes # (auto) 0.54 K/uL (0.11-0.59); Monocytes % (auto) 10.4 %; Neutrophils # (auto) 3.51 K/uL (1.40-6.50); Neutrophils % (auto) 67.3 %; Platelet Count 213 K/uL (130-400); RDW Coefficient of Variation 13.5 % (11.5-14.5); RDW Standard Deviation 42.4 fL (36.4-46.3); White Blood Count 5.21 K/ul (4.8-10.8)
[2024-11-02 00:33] LABS: Albumin Globulin Ratio 1.1 (0.9-2); Albumin Level 3.4 gm/dl (3.4-5.0); Bilirubin,Total 0.6 mg/dl (0.2-1.0); Calcium 9.3 mg/dl (8.6-10.3); Creatinine Clr Calc Pharmacy 53.6 ml/min; Globulin 3.1 gm/dl (2.5-4.0); Potassium 4.2 mmol/L (3.5-5.1); Total Protein 6.5 gm/dl (6.0-8.3)
--- NOTE | 2024-11-02 01:38 | CT Scan Report ---
EXAM: CT lumbar spine wo con CLINICAL HISTORY: pain at lower back TECHNIQUE: Multiple contiguous axial images were obtained through the lumbar spine without IV contrast. Sagittal and coronal reformatted images were obtained from the axial data. CT scan was performed according to ALARA (as low as reasonable achievable). COMPARISON: 10/21/2024 20:14:29 NURSE PRACTITIONER ADULT FINDINGS: Loss of lumbar lordosis - suggest possibility of muscle spasm/positional. Degenerative changes involving lumbar spine in the form of multilevel marginal osteophytes, disc space reduction and facetal arthrosis. Evidence of acute compression fracture is noted along the superior endplate with Mild collapse of L3 vertebral body.- approximately 5%-10% reduction in vertebral body height. Redemonstration of old compression collapse of L5 vertebral body along the superior endplate with minimal reduction of vertebral body height base about 5%. Endplate sclerosis / modic type III degenerative changes are noted at L4-L5 and L5-S1 level.- same as prior. Mild posterior disc bulge is noted involving L1-L2 and L2-L3 level which indenting ventral thecal sac and causes mild bilateral lateral recess narrowing. Posterior disc herniation with peridiscal osteophytes is noted involving L3-L4, L4-L5 and L5-S1 level causing narrowing of bilateral lateral recesses and neural foraminal narrowing. Rest of Lumbar vertebral bodies are maintained in height and alignment. No vertebral estructive changes are seen. Paravertebral soft tissues are unremarkable. IMPRESSION: Lumbar spondylosis.- stable as prior. Evidence of acute compression fracture is noted along the superior endplate with Mild collapse of L3 vertebral body.- approximately 5%-10% reduction in vertebral body height.-new acute finding. Redemonstration of old compression collapse of L5 vertebral body along the superior endplate with minimal reduction of vertebral body height base about 5%. Endplate sclerosis / modic type III degenerative changes are noted at L4-L5 and L5-S1 level.- same as prior. Electronically signed by Davey Bailon 11-02-2024 01:38 AM
--- NOTE | 2024-11-02 02:23 | Emergency Department Note ---
Impression & Plan Compression fracture of L3 vertebra, Severe low back pain, Ambulatory dysfunction ED Provider Note NAME: NIKKI MOORE AGE: 84 SEX: Female INFORMANT: Patient ED PROVIDER(S): Abdulaziz Goode MD CHIEF COMPLAINT: Severe back pain PLAN: Disposition: Admitted Outpatient prescription management: none Referral: None MEDICAL DECISION MAKING: Patient presented due to severe back pain. Patient had no new trauma since discharge. She received fentanyl prehospital and was treated IV Dilaudid in the emergency department. She did feel better with this and it help facilitate imaging. Patient underwent CT imaging. Her CBC, chemistry panel and urinalysis were unremarkable. CT imaging reveals a new L3 compression fracture. Patient was informed. Given her level of discomfort with any movement further management in the hospital was deemed appropriate. [facility]. Patient was evaluated in the ER and admitted for further management. Care/management discussed with: manager supply Level of care consideration(s): After review of the information above and other included data, I feel the patient requires escalation of care to admission Triage Nursing notes: reviewed and agree them. Vital Signs: reviewed and remarkable for hypertension Additional History obtained from: none Chronic Medical/Social Conditions affecting care: none Prior/ Outside/ External records reviewed: Hospital discharge summary reviewed from this last admission. Patient treated conservatively with orthopedic spine recommending pain management first. Differential Diagnosis: Musculoskeletal, disc herniation, fracture, metastatic disease, cord compression, discitis, sciatica, cauda equina, infection, aortic disease, renal colic, gastrointestinal, as well as other pathologies. Diagnostics, independently interpreted by me: ECG: none Cardiac Monitoring: Cardiac monitoring ordered by me: The patient was placed on continuous cardiac monitoring and observed. It revealed a normal sinus rhythm at 70 beats per minute without ectopy or evidence of dysrhythmia. Medical decision rules: none Imaging studies: CT scan lumbar spine reveals a new L3 compression fracture. I refer you to the EMR for further details. HPI: 84 year old Female arrives for evaluation of low back pain. This started today and is described as severe. Patient describes low back spasms. She was recently in the hospital for an L4 and L5 compression fracture. She states that she was going to have pain management injection however was also diagnosed recently with a UTI and pain management deferred until the of this month. The patient also notes the following associated symptoms, none. The patient has been given fentanyl by EMS for relieving factors. Current pain is rated as 8/10. Patient also notes taking oxycodone at home without relief. Pain was so severe she could not get up and move around safely on her own. Pt denies new trauma, LOC, headache, neck pain, fevers, chills, malaise, night sweats, weight loss, history of malignancy, chest pain, breathing difficulties, abdominal pain, saddle parasthesias, bowel or bladder dysfunction, numbness, focal weakness, urinary symptoms, or other complaints. PAST MEDICAL HISTORY: See Below, lumbar compression fracture PAST SURGICAL HISTORY: See Below, SOCIAL HISTORY: See Below, former smoker HOME MEDICATIONS: See Below ALLERGIES: See Below VITALS: See Below PHYSICAL EXAMINATION: GENERAL: Awake, alert, uncomfortable-appearing, in no distress HENT: Normocephalic, atraumatic. Oropharynx unremarkable. EYES: Normal conjunctiva. Sclera non-icteric. NECK: Inspection normal. Non-tender. Supple. No nuchal rigidity. FROM. No masses. RESPIRATORY: Clear to auscultation. No wheezes. No rales. Normal respiratory effort. CARDIAC: Normal rate. Normal rhythm. No murmurs. No rubs. Extremities warm and well perfused. Pulses equal. No JVD. GI: Soft, non-distended. No tenderness to palpation. No rebound or guarding. No masses. RECTAL: Deferred. MUSCULOSKELETAL: Atraumatic. Chest examination reveals no tenderness. The back is symmetrical on inspection without obvious abnormality. There is no CVA tenderness to palpation. No joint edema. LOWER EXTREMITIES: Calves are equal size bilaterally and non-tender. No edema. No discoloration. NEURO: Normal sensorium. No sensory or motor deficits noted. No saddle anesthesia. Positive right straight leg raise. SKIN: No rash or jaundice noted. PROCEDURES: none CRITICAL CARE: none OBSERVATION NOTE: none Past Med/Surg History Problem List (Updated 11/02/24 @ 02:15 by Abdulaziz Goode MD) Ambulatory dysfunction (Acute) Compression fracture of L3 vertebra (Acute) Lumbosacral spondylosis with radiculopathy Severe low back pain (Acute) Compression fx, lumbar spine (Acute) Medical History (Updated 11/02/24 @ 02:15 by Abdulaziz Goode MD) Hyperlipidemia Moderate mitral regurgitation Moderate aortic stenosis DDD (degenerative disc disease), lumbar Collapse of right external ear canal SNHL (sensorineural hearing loss) Cerumen impaction Cataract Varicose vein of leg Depression Surgical History (Updated 10/23/24 @ 12:03 by Jo Bailey DO) History of vein stripping H/O cataract removal with insertion of prosthetic lens Family History Father Hearing loss Stroke Aunt Asthma FHx: allergies Other No family history of adverse response to anesthesia No family history of bleeding disorder Social History Smoking Status: Former smoker Tobacco Type: Cigarettes Second Hand Exposure: Yes; Do You Dip or Chew Tobacco: No; Hx Alcohol Use: Yes Hx Substance Use: No Preferred Language: Libyan Communication Ability: Effective Network Relations Consultant Required: No Beliefs That Will Affect Care: None Current Living Situation: Spouse Feels Safe at Home: Yes Assistive Devices: Other Allergies Allergies Allergy/AdvReac Type Severity Reaction Status Date / Time aspirin AdvReac Intermediate Upset Verified 02/19/24 13:44 stomach Home Meds Home Medications Medication Instructions Recorded Confirmed cholecalciferol (vitamin D3) 25 25 mcg PO DAILY 01/20/23 10/21/24 mcg (1,000 unit) tablet cyanocobalamin (vitamin B-12) 1,000 mcg PO DAILY 01/20/23 10/21/24 1,000 mcg tablet sertraline 100 mg tablet 200 mg PO DAILY 01/20/23 10/21/24 melatonin 5 mg tablet 5 mg PO HS PRN Insomnia 01/21/23 10/21/24 vitamins A,C,T-bcly-eyxbru 2,148 1 tab PO BID 01/21/23 10/21/24 mcg-113 mg-45 mg-17.4 mg tablet diclofenac sodium 75 mg 75 mg PO DAILY PRN Pain 10/21/24 10/21/24 tablet,delayed release Previous Rx's Medication Instructions Recorded gabapentin 300 mg capsule 300 mg PO BID #60 caps 10/29/24 oxycodone 5 mg tablet 5 mg PO Q6H PRN pain #8 tabs 10/29/24 Results & Data (ED) Vital Signs Vital Signs - 24 hr 11/01/24 20:42 11/01/24 22:42 11/02/24 00:00 Temperature 37.0 C Temperature Source Oral Pulse Rate 80 Pulse Rate [Apical] 73 70 Pulse Rhythm Regular Pulse Strength Normal Respiratory Rate 18 16 18 Respiratory Effort / Characteristics Non-Labored Non-Labored Respiratory Depth Normal Normal Respiratory Pattern Regular Blood Pressure 192/123 H Blood Pressure [Right Arm] 171/92 H 167/80 H Blood Pressure Mean 146 Blood Pressure Mean [Right Arm] 118 109 Blood Pressure Position Lying Blood Pressure Position [Right Arm] Lying Lying Pulse Oximetry 94 91 100 Oxygen Delivery Method Room Air Room Air Room Air Oxygen Flow Rate Sepsis Recent Fever Within 48 Hours No Sepsis New/Unexplained Change in Mental Status No Sepsis Action Taken by Nursing No Action Required 11/02/24 00:19 11/02/24 00:42 Temperature Temperature Source Pulse Rate 74 Pulse Rate [Apical] 70 Pulse Rhythm Pulse Strength Respiratory Rate 17 Respiratory Effort / Characteristics Respiratory Depth Respiratory Pattern Blood Pressure Blood Pressure [Right Arm] Blood Pressure Mean Blood Pressure Mean [Right Arm] Blood Pressure Position Blood Pressure Position [Right Arm] Pulse Oximetry 98 Oxygen Delivery Method Nasal Cannula Oxygen Flow Rate 2 Sepsis Recent Fever Within 48 Hours Sepsis New/Unexplained Change in Mental Status Sepsis Action Taken by Nursing Laboratory Data 11/02/24 00:03 11/02/24 00:03 Lab Results 11/02/24 11/02/24 Range/Units 00:00 00:03 WBC 5.21 (4.8-10.8) K/ul RBC 4.50 (4.20-5.40) M/uL Hgb 12.8 (12.0-16.0) g/dl Hct 38.7 (37.0-47.0) % MCV 86.0 (80.0-100.0) fL MCH 28.4 (25.0-34.0) pg MCHC 33.1 (32.0-36.0) g/dL RDW Std Deviation 42.4 (36.4-46.3) fL RDW Coeff of Galdino 13.5 (11.5-14.5) % Plt Count 213 (130-400) K/uL MPV 9.0 L (9.4-12.4) fL Immature Gran % (Auto) 0.2 % Neut % (Auto) 67.3 % Lymph % (Auto) 18.4 % [place] % (Auto) 10.4 % Eos % (Auto) 3.5 % Baso % (Auto) 0.2 % Neut # (Auto) 3.51 (1.40-6.50) K/uL Lymph # (Auto) 0.96 L (1.20-3.40) K/uL [place] # (Auto) 0.54 (0.11-0.59) K/uL Eos # (Auto) 0.18 (0.00-0.50) K/uL Baso # (Auto) 0.01 (0.00-0.20) K/uL Immature Gran # (Auto) 0.01 (0.01-0.20) K/uL Sodium 140 (136-145) mmol/L Potassium 4.2 (3.5-5.1) mmol/L Chloride 107 (98-107) mmol/L Carbon Dioxide 28 (21-32) mmol/L Anion Gap 5 (3-11) BUN 16 (6-23) mg/dl Creatinine 0.84 (0.6-1.2) mg/dl Est Cr Clr Drug Dosing 53.6 ml/min eGFR 67.63 BUN/Creatinine Ratio 19.0 (10-20) Glucose 105 H (70-99(Fasting)) mg/dl Calcium 9.3 (8.6-10.3) mg/dl Total Bilirubin 0.6 (0.2-1.0) mg/dl AST 25 (13-39) U/L ALT 24 (7-52) U/L Alkaline Phosphatase 80 (34-104) U/L Total Protein 6.5 (6.0-8.3) gm/dl Albumin 3.4 (3.4-5.0) gm/dl Globulin 3.1 (2.5-4.0) gm/dl Albumin/Globulin Ratio 1.1 (0.9-2) Urine Color Yellow Urine Appearance Clear (Clear) Urine pH 6.5 (4.5-7.5) Ur Specific King 1.020 (1.000-1.030) Urine Protein Negative (Negative) Urine Glucose (UA) Negative (Negative) Urine Ketones Negative (Negative) Urine Blood Negative (Negative) Urine Nitrite Negative (Negative) Urine Bilirubin Negative (Negative) Urine Urobilinogen Negative (Negative) Ur Leukocyte Esterase Negative (Negative) Administered Medications Hydromorphone HCl (Hydromorphone Inj 0.5 Mg/0.5 Ml Syr) 0.5 mg IV Q15M PRN PRN Reason: Pain Stop: 11/15/24 23:08 Last Admin: 11/01/24 23:56 Dose: 0.5 mg Documented By: PAG Imaging Data Radiologist's Impression: Lumbar Spine CT 11/01/24 23:11 EXAM: CT lumbar spine wo con CLINICAL HISTORY: pain at lower back TECHNIQUE: Multiple contiguous axial images were obtained through the lumbar spine without IV contrast. Sagittal and coronal reformatted images were obtained from the axial data. CT scan was performed according to ALARA (as low as reasonable achievable). COMPARISON: 10/21/2024 20:14:29 SOW MANAGER FINDINGS: Loss of lumbar lordosis - suggest possibility of muscle spasm/positional. Degenerative changes involving lumbar spine in the form of multilevel marginal osteophytes, disc space reduction and facetal arthrosis. Evidence of acute compression fracture is noted along the superior endplate with Mild collapse of L3 vertebral body.- approximately 5%-10% reduction in vertebral body height. Redemonstration of old compression collapse of L5 vertebral body along the superior endplate with minimal reduction of vertebral body height base about 5%. Endplate sclerosis / modic type III degenerative changes are noted at L4-L5 and L5-S1 level.- same as prior. Mild posterior disc bulge is noted involving L1-L2 and L2-L3 level which indenting ventral thecal sac and causes mild bilateral lateral recess narrowing. Posterior disc herniation with peridiscal osteophytes is noted involving L3-L4, L4-L5 and L5-S1 level causing narrowing of bilateral lateral recesses and neural foraminal narrowing. Rest of Lumbar vertebral bodies are maintained in height and alignment. No vertebral estructive changes are seen. Paravertebral soft tissues are unremarkable. IMPRESSION: Lumbar spondylosis.- stable as prior. Evidence of acute compression fracture is noted along the superior endplate with Mild collapse of L3 vertebral body.- approximately 5%-10% reduction in vertebral body height.-new acute finding. Redemonstration of old compression collapse of L5 vertebral body along the superior endplate with minimal reduction of vertebral body height base about 5%. Endplate sclerosis / modic type III degenerative changes are noted at L4-L5 and L5-S1 level.- same as prior. Electronically signed by Davey Bailon 11-02-2024 01:38 AM Discharge Plan Visit Data Chief Complaint: Back Injury/Pain Stated Complaint: BACK SPASMS ED Provider: Abdulaziz Goode Discharge Problem: Compression fracture of L3 vertebra, Severe low back pain, Ambulatory dysfunction Forms Stand Alone Forms: My [facility] Prescriptions Prescriptions: No Action sertraline 100 mg tablet 200 mg PO DAILY cholecalciferol (vitamin D3) 25 mcg (1,000 unit) Tablet 25 mcg PO DAILY cyanocobalamin (vitamin B-12) 1,000 mcg Tablet 1,000 mcg PO DAILY vitamins A,C,A-ijlw-ukubbr 2,148 mcg-113 mg-45 mg-17.4mg Tablet 1 tab PO BID Rx Instructions: administer with AM and PM meals melatonin 5 mg Tablet 5 mg PO HS PRN (Reason: Insomnia) diclofenac sodium 75 mg tablet,delayed release (DR/EC) 75 mg PO DAILY PRN (Reason: Pain) gabapentin 300 mg Capsule 300 mg PO BID Qty: 60 0RF oxycodone 5 mg Tablet 5 mg PO Q6H PRN (Reason: pain) Qty: 8 0RF Referrals Referrals: Nadir Roach MD [Primary Care Provider] -
--- NOTE | 2024-11-02 06:19 | History & Physical Report ---
Date of Service November 02, 2024 Assessment & Plan (1) Compression fx, lumbar spine: Plan: 84-year-old female with past medical history significant for mixed hyperlipidemia, moderate aortic stenosis, moderate mitral regurgitation, depression comes because of severe back pain and found to have new L3 compression fracture. Patient was recently in the hospital with severe low back pain radiating to left lower extremity and ambulate dysfunction after moving heavy boxes on 09/28/2024. As per discharge summary 10/29/24" Lumbar spine MRI 10/22 with multilevel lumbar disc pathologies at the L1-L2 through the L5-S1 levels with effects exerted upon the spinal canal, subarticular recesses, and neural foramina with impingement of the emerging nerve roots. Degenerative spondylolisthesis, retrolisthesis, buckled ligamenta flava, and arthropathic facet joints augment effects. Findings are most appreciated at the L4-L5 level. Orthospine consulted and recommending injections therapy to assess progress before doing any surgical intervention. Pain mgmt evaluated and transforaminal epidural steroid injection right L4-5 section scheduled on 11/12/2024 at 11:15 AM in outpatient setting (must wait for 2 wks following abx)." Was discharged on 10/29/2024 with the gabapentin and oxycodone as needed for breakthrough pain.. Gabapentin helping her. She did not have any more right leg pain. But last night when she was sleeping she noticed severe pain in the back and came to the ER. Found to have L3 to compression fracture. Currently hemodynamics okay. Having normal bowel and bladder movements. Denies any nausea. No chest pain. No shortness. No fevers. No headache. No runny nose or sore throat. No cough. Afebrile. Resting comfortably currently. Having some dry mouth and likes to drink some water. Compression fracture lumbar spine Came with severe back pain and found to have new acute L3 compression fracture And also recent old findings on the CAT scan Pain control Orthospine consult Follow-up with pain management PT OT when stable Depression On Zoloft History of moderate aortic stenosis Monitor for volume overload Follow-up DVT prophylaxis Lovenox Disposition Medical floor Full code. History of Present Illness Chief Complaint: Severe back pain Primary Care Provider: Nadir Roach MD 84-year-old female with past medical history significant for mixed hyperlipidemia, moderate aortic stenosis, moderate mitral regurgitation, depression comes because of severe back pain and found to have new L3 compression fracture. Patient was recently in the hospital with severe low back pain radiating to left lower extremity and ambulate dysfunction after moving heavy boxes on 09/28/2024. As per discharge summary 10/29/24" Lumbar spine MRI 10/22 with multilevel lumbar disc pathologies at the L1-L2 through the L5-S1 levels with effects exerted upon the spinal canal, subarticular recesses, and neural foramina with impingement of the emerging nerve roots. Degenerative spondylolisthesis, retrolisthesis, buckled ligamenta flava, and arthropathic facet joints augment effects. Findings are most appreciated at the L4-L5 level. Orthospine consulted and recommending injections therapy to assess progress before doing any surgical intervention. Pain mgmt evaluated and transforaminal epidural steroid injection right L4-5 section scheduled on 11/12/2024 at 11:15 AM in outpatient setting (must wait for 2 wks following abx)." Was discharged on 10/29/2024 with the gabapentin and oxycodone as needed for breakthrough pain.. Gabapentin helping her. She did not have any more right leg pain. But last night when she was sleeping she noticed severe pain in the back and came to the ER. Found to have L3 to compression fracture. Currently hemodynamics okay. Having normal bowel and bladder movements. Denies any nausea. No chest pain. No shortness. No fevers. No headache. No runny nose or sore throat. No cough. Afebrile. Resting comfortably currently. Having some dry mouth and likes to drink some water. Past medical history. As mentioned above Past surgical history. Colonoscopy. Ligation oviducts. Bilateral cataracts. Bilateral vein stripping. Social history. . Quit smoking 1984. Smoked 1 pack a day for 30 years. Alcohol occasional. No drug use. Family history. Maternal aunt had breast cancer in her 80s. Maternal grandmother had eye problems. Mother had eye problems. Cousin had a blindness from a tumor. Father of [place] at age 81. Allergies Allergy/AdvReac Type Severity Reaction Status Date / Time aspirin AdvReac Intermediate Upset Verified 02/19/24 13:44 stomach Home Medications Medication Instructions Recorded Confirmed Type cholecalciferol (vitamin D3) 25 25 mcg PO DAILY 01/20/23 11/02/24 History mcg (1,000 unit) tablet cyanocobalamin (vitamin B-12) 1,000 mcg PO DAILY 01/20/23 11/02/24 History 1,000 mcg tablet sertraline 100 mg tablet 200 mg PO DAILY 01/20/23 11/02/24 History melatonin 5 mg tablet 5 mg PO HS PRN Insomnia 01/21/23 11/02/24 History vitamins A,C,T-gapz-ctnvsv 2,148 1 tab PO BID 01/21/23 11/02/24 History mcg-113 mg-45 mg-17.4 mg tablet gabapentin 300 mg capsule 300 mg PO BID 11/02/24 11/02/24 History Past Med/Surg History Problem List (Updated 11/02/24 @ 02:15 by Abdulaziz Goode MD) Ambulatory dysfunction (Acute) Compression fracture of L3 vertebra (Acute) Lumbosacral spondylosis with radiculopathy Severe low back pain (Acute) Compression fx, lumbar spine (Acute) Medical History (Updated 11/02/24 @ 02:15 by Abdulaziz Goode MD) Hyperlipidemia Moderate mitral regurgitation Moderate aortic stenosis DDD (degenerative disc disease), lumbar Collapse of right external ear canal SNHL (sensorineural hearing loss) Cerumen impaction Cataract Varicose vein of leg Depression Surgical History (Updated 10/23/24 @ 12:03 by Jo Bailey DO) History of vein stripping H/O cataract removal with insertion of prosthetic lens Family History Father Hearing loss Stroke Aunt Asthma FHx: allergies Other No family history of adverse response to anesthesia No family history of bleeding disorder Social History Smoking Status: Former smoker Tobacco Type: Cigarettes Second Hand Exposure: Yes; Do You Dip or Chew Tobacco: No; Hx Alcohol Use: Yes Hx Substance Use: No Preferred Language: Yakut Communication Ability: Effective 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 Head- atraumatic Eyes- PERRL. ENT- oropharynx dry Neck- supple, no JVD. Lungs- clear to auscultation no wheezing or crackles Heart- regular rhythm; no murmur, no gallop. Abdomen- normal bowel sounds, soft, nontender, no distension Extremities- no pretibial edema, no erythema seen Neuro- alert, oriented ; PERRL, no facial palsy; no dysarthria; moves extremities Results & Data Results & Data Vital Signs (Past 12 Hours) Vital Signs Temp Pulse Pulse Resp BP BP Pulse Ox 11/02/24 04:11 61 11/02/24 04:00 62 18 164/82 H 97 11/02/24 02:00 61 18 166/76 H 98 11/02/24 00:42 70 17 98 11/02/24 00:19 74 11/02/24 00:00 70 18 167/80 H 100 11/01/24 22:42 73 16 171/92 H 91 11/01/24 20:42 37.0 C 80 18 192/123 H 94 O2 Del Method O2 Flow Rate 11/02/24 04:11 11/02/24 04:00 Room Air 11/02/24 02:00 Nasal Cannula 2 11/02/24 00:42 Nasal Cannula 2 11/02/24 00:19 11/02/24 00:00 Room Air 11/01/24 22:42 Room Air 11/01/24 20:42 Room Air Diagnostic Findings Laboratory Results WBC 5.21 K/ul (4.8-10.8) 11/02/24 00:03 RBC 4.50 M/uL (4.20-5.40) 11/02/24 00:03 Hgb 12.8 g/dl (12.0-16.0) 11/02/24 00:03 Hct 38.7 % (37.0-47.0) 11/02/24 00:03 MCV 86.0 fL (80.0-100.0) 11/02/24 00:03 MCH 28.4 pg (25.0-34.0) 11/02/24 00:03 MCHC 33.1 g/dL (32.0-36.0) 11/02/24 00:03 RDW Std Deviation 42.4 fL (36.4-46.3) 11/02/24 00:03 RDW Coeff of Galdino 13.5 % (11.5-14.5) 11/02/24 00:03 Plt Count 213 K/uL (130-400) 11/02/24 00:03 MPV 9.0 fL (9.4-12.4) L 11/02/24 00:03 Immature Gran % (Auto) 0.2 % 11/02/24 00:03 Neut % (Auto) 67.3 % 11/02/24 00:03 Lymph % (Auto) 18.4 % 11/02/24 00:03 [place] % (Auto) 10.4 % 11/02/24 00:03 Eos % (Auto) 3.5 % 11/02/24 00:03 Baso % (Auto) 0.2 % 11/02/24 00:03 Neut # (Auto) 3.51 K/uL (1.40-6.50) 11/02/24 00:03 Lymph # (Auto) 0.96 K/uL (1.20-3.40) L 11/02/24 00:03 Walton # (Auto) 0.54 K/uL (0.11-0.59) 11/02/24 00:03 Eos # (Auto) 0.18 K/uL (0.00-0.50) 11/02/24 00:03 Baso # (Auto) 0.01 K/uL (0.00-0.20) 11/02/24 00:03 Immature Gran # (Auto) 0.01 K/uL (0.01-0.20) 11/02/24 00:03 Sodium 140 mmol/L (136-145) 11/02/24 00:03 Potassium 4.2 mmol/L (3.5-5.1) 11/02/24 00:03 Chloride 107 mmol/L (98-107) 11/02/24 00:03 Carbon Dioxide 28 mmol/L (21-32) 11/02/24 00:03 Anion Gap 5 (3-11) 11/02/24 00:03 BUN 16 mg/dl (6-23) 11/02/24 00:03 Creatinine 0.84 mg/dl (0.6-1.2) 11/02/24 00:03 Est Cr Clr Drug Dosing 53.6 ml/min 11/02/24 00:03 eGFR 67.63 11/02/24 00:03 BUN/Creatinine Ratio 19.0 (10-20) 11/02/24 00:03 Glucose 105 mg/dl (70-99(Fasting)) H 11/02/24 00:03 Calcium 9.3 mg/dl (8.6-10.3) 11/02/24 00:03 Total Bilirubin 0.6 mg/dl (0.2-1.0) 11/02/24 00:03 AST 25 U/L (13-39) 11/02/24 00:03 ALT 24 U/L (7-52) 11/02/24 00:03 Alkaline Phosphatase 80 U/L (34-104) 11/02/24 00:03 Total Protein 6.5 gm/dl (6.0-8.3) 11/02/24 00:03 Albumin 3.4 gm/dl (3.4-5.0) 11/02/24 00:03 Globulin 3.1 gm/dl (2.5-4.0) 11/02/24 00:03 Albumin/Globulin Ratio 1.1 (0.9-2) 11/02/24 00:03 Urine Color Yellow 11/02/24 00:00 Urine Appearance Clear (Clear) 11/02/24 00:00 Urine pH 6.5 (4.5-7.5) 11/02/24 00:00 Ur Specific [place] 1.020 (1.000-1.030) 11/02/24 00:00 Urine Protein Negative (Negative) 11/02/24 00:00 Urine Glucose (UA) Negative (Negative) 11/02/24 00:00 Urine Ketones Negative (Negative) 11/02/24 00:00 Urine Blood Negative (Negative) 11/02/24 00:00 Urine Nitrite Negative (Negative) 11/02/24 00:00 Urine Bilirubin Negative (Negative) 11/02/24 00:00 Urine Urobilinogen Negative (Negative) 11/02/24 00:00 Ur Leukocyte Esterase Negative (Negative) 11/02/24 00:[address] 11/01/24 23:11 EXAM: CT lumbar spine wo con CLINICAL HISTORY: pain at lower back TECHNIQUE: Multiple contiguous axial images were obtained through the lumbar spine without IV contrast. Sagittal and coronal reformatted images were obtained from the axial data. CT scan was performed according to ALARA (as low as reasonable achievable). COMPARISON: 10/21/2024 20:14:29 JEWEL BEARING GRINDER FINDINGS: Loss of lumbar lordosis - suggest possibility of muscle spasm/positional. Degenerative changes involving lumbar spine in the form of multilevel marginal osteophytes, disc space reduction and facetal arthrosis. Evidence of acute compression fracture is noted along the superior endplate with Mild collapse of L3 vertebral body.- approximately 5%-10% reduction in vertebral body height. Redemonstration of old compression collapse of L5 vertebral body along the superior endplate with minimal reduction of vertebral body height base about 5%. Endplate sclerosis / modic type III degenerative changes are noted at L4-L5 and L5-S1 level.- same as prior. Mild posterior disc bulge is noted involving L1-L2 and L2-L3 level which indenting ventral thecal sac and causes mild bilateral lateral recess narrowing. Posterior disc herniation with peridiscal osteophytes is noted involving L3-L4, L4-L5 and L5-S1 level causing narrowing of bilateral lateral recesses and neural foraminal narrowing. Rest of Lumbar vertebral bodies are maintained in height and alignment. No vertebral estructive changes are seen. Paravertebral soft tissues are unremarkable. IMPRESSION: Lumbar spondylosis.- stable as prior. Evidence of acute compression fracture is noted along the superior endplate with Mild collapse of L3 vertebral body.- approximately 5%-10% reduction in vertebral body height.-new acute finding. Redemonstration of old compression collapse of L5 vertebral body along the superior endplate with minimal reduction of vertebral body height base about 5%. Endplate sclerosis / modic type III degenerative changes are noted at L4-L5 and L5-S1 level.- same as prior. Electronically signed by Davey Bailon 11-02-2024 01:38 AM Code Status & VTE Plan VTE Prophylaxis Plan VTE Prophylaxis will be ordered: Yes (1) Compression fx, lumbar spine Encounter type: initial encounter Lumbar vertebra fracture level: L5 Qualified Code(s): S32.050A - Wedge compression fracture of fifth lumbar vertebra, initial encounter for closed fracture
[2024-11-02] MEDS ORDERED: POLYETHYLENE (MIRALAX) 17 GM PACK PO PRN (09:11)
[2024-11-02] MEDS ORDERED: HYDROmorphone INJ 0.5 MG/0.5 ML SYR IV PRN (09:11)
[2024-11-02] MEDS ORDERED: oxyCODONE HCL IR 5 MG TAB (IMMEDIATE RELEASE) PO PRN (09:11)
[2024-11-02] MEDS ORDERED: MELATONIN 3 MG TAB PO PRN (09:18)
[2024-11-02] MEDS: CYANOCOBALAMIN (B-12) 500 MCG TABLET PO SCH (10:37)
[2024-11-02] MEDS: ENOXAPARIN INJ 40 MG/0.4 ML SYR SQ SCH (10:37)
[2024-11-02] MEDS: CHOLECALCIFEROL 25 MCG (1000 UNITS) TAB PO SCH (10:38)
[2024-11-02] MEDS: GABAPENTIN 300 MG CAP PO SCH (10:38)
[2024-11-02] MEDS: SERTRALINE HCL 100 MG TABLET PO SCH (10:38)
[2024-11-02] MEDS ORDERED: HYDROmorphone HCL 2 MG TAB PO PRN (17:01)
--- NOTE | 2024-11-02 17:06 | Communication Note ---
Date of Service: November 02, 2024 The patient was seen and examined in medical floor. She is admitted with acute lumbar back pain and noted to have acute compression fracture along the superior endplate with mild collapse of the L3 vertebral body without any radiculopathic symptoms. Her current medications for pain has not been working and she wanted to try Dilaudid orally and also baclofen was given. She will have PT and OT evaluation. She wants to have injection at the back as a scheduled room on of this month and followed by that wants to see Dr. Adler for possible surgery at the back. Full progress note will be done tomorrow. Dr Solo Simon
[2024-11-02] MEDS: CEROVITE ADV FORMULA TAB PO SCH (18:02)
[2024-11-02] MEDS: ACETAMINOPHEN 325 MG TAB PO PRN (20:38)
[2024-11-02] MEDS ORDERED: BACLOFEN 10 MG TAB PO SCH (21:00)
[2024-11-02] MEDS: BACLOFEN 10 MG TAB PO SCH (21:32)
[2024-11-03 06:09] LABS: Basophils # (auto) 0.01 K/uL (0.00-0.20); Basophils % (auto) 0.2 %; Eosinophils # (auto) 0.18 K/uL (0.00-0.50); Eosinophils % (auto) 4.2 %; Hematocrit (blood only) 37.7 % (37.0-47.0); Hemoglobin 12.5 g/dl (12.0-16.0); Immature Granulocytes # (auto) 0.03 K/uL (0.01-0.20); Immature Granulocytes % (auto) 0.7 %; Lymphocytes # (auto) 1.22 K/uL (1.20-3.40); Lymphocytes % (auto) 28.8 %; Mean Corpuscular Hemoglobin 28.7 pg (25.0-34.0); Mean Corpuscular Hgb Conc 33.2 g/dL (32.0-36.0); Mean Corpuscular Volume 86.5 fL (80.0-100.0); Mean Platelet Volume 9.7 fL (9.4-12.4); Monocytes # (auto) 0.45 K/uL (0.11-0.59); Monocytes % (auto) 10.6 %; Neutrophils # (auto) 2.35 K/uL (1.40-6.50); Neutrophils % (auto) 55.5 %; Platelet Count 218 K/uL (130-400); RDW Coefficient of Variation 13.5 % (11.5-14.5); RDW Standard Deviation 42.7 fL (36.4-46.3); Red Blood Count 4.36 M/uL (4.20-5.40); White Blood Count 4.24 K/ul (4.8-10.8)
[2024-11-03 06:14] LABS: BUN Creatinine Ratio 23.9 (10-20); Calcium 9.2 mg/dl (8.6-10.3); Creatinine Clr Calc Pharmacy 63.4 ml/min; Magnesium 1.8 mg/dl (1.7-2.4); Potassium 4.3 mmol/L (3.5-5.1)
[2024-11-03 14:55] VITALS: BP 139/82; PULSE 60; RESP 18; TEMP 97.8; O2SAT 95
[2024-11-03] MEDS: ACETAMINOPHEN 500 MG TAB PO SCH (14:59)
--- NOTE | 2024-11-03 16:19 | Discharge Summary ---
Discharge Summary Date of Service November 03, 2024 Principal Dx & Hospital Course #1 = Principal Diagnosis (1) Compression fracture of L3 vertebra: (2) Ambulatory dysfunction: (3) Lumbosacral spondylosis with radiculopathy: Plan Patient presented to the emergency room with severe pain and back spasms inhibiting her ability to walk. Patient has known L3 compression fracture. Patient was cared for in the hospital. She was responding to Dilaudid and essentially all of her pain had improved with a one-time dose of IV Dilaudid. She was started on Tylenol and scheduled baclofen. She did not even require oral Dilaudid that was ordered. On the day of discharge she is up and ambulating with a walker. She ambulated the halls with physical therapy and they recommended that she could return home. Her back spasms had significantly improved with scheduled baclofen. She already has planned outpatient appointments for follow-up for injections of the spine and outpatient spine orthopedic surgery she will continue with these planned appointments. She be discharged home with scheduled Tylenol and baclofen and as needed oral Dilaudid. Notes For Next Care Provider Medication Changes From Visit Baclofen scheduled Tylenol scheduled Dilaudid as needed for severe pain Admission HPI Per Admitting Provider 84-year-old female with past medical history significant for mixed hyperlipidemia, moderate aortic stenosis, moderate mitral regurgitation, depression comes because of severe back pain and found to have new L3 compression fracture. Patient was recently in the hospital with severe low back pain radiating to left lower extremity and ambulate dysfunction after moving heavy boxes on 09/28/2024. As per discharge summary 10/29/24" Lumbar spine MRI 10/22 with multilevel lumbar disc pathologies at the L1-L2 through the L5-S1 levels with effects exerted upon the spinal canal, subarticular recesses, and neural foramina with impingement of the emerging nerve roots. Degenerative spondylolisthesis, retrolisthesis, buckled ligamenta flava, and arthropathic facet joints augment effects. Findings are most appreciated at the L4-L5 level. Orthospine consulted and recommending injections therapy to assess progress before doing any surgical intervention. Pain mgmt evaluated and transforaminal epidural steroid injection right L4-5 section scheduled on 11/12/2024 at 11:15 AM in outpatient setting (must wait for 2 wks following abx)." Was discharged on 10/29/2024 with the gabapentin and oxycodone as needed for breakthrough pain.. Gabapentin helping her. She did not have any more right leg pain. But last night when she was sleeping she noticed severe pain in the back and came to the ER. Found to have L3 to compression fracture. Currently hemodynamics okay. Having normal bowel and bladder movements. Denies any nausea. No chest pain. No shortness. No fevers. No headache. No runny nose or sore throat. No cough. Afebrile. Resting comfortably currently. Having some dry mouth and likes to drink some water. Past medical history. As mentioned above Past surgical history. Colonoscopy. Ligation oviducts. Bilateral cataracts. Bilateral vein stripping. Social history. . Quit smoking 1984. Smoked 1 pack a day for 30 years. Alcohol occasional. No drug use. Family history. Maternal aunt had breast cancer in her 80s. Maternal grandmother had eye problems. Mother had eye problems. Cousin had a blindness from a tumor. Father of [place] at age 81. Admission Exam Per Admitting Provider See H&P Discharge Exam Constitutional: Alert, no acute distress Lungs: Clear to auscultation, decreased, no wheezes rales or rhonchi CV: S1-S2, regular Extremities: No significant edema Neuro: No focal deficits, ambulating in the room Psych: Cooperative, normal mood Updated Medication List Medication Instructions Recorded Confirmed Type cholecalciferol (vitamin D3) 25 25 mcg PO DAILY 01/20/23 11/02/24 History mcg (1,000 unit) tablet cyanocobalamin (vitamin B-12) 1,000 mcg PO DAILY 01/20/23 11/02/24 History 1,000 mcg tablet sertraline 100 mg tablet 200 mg PO DAILY 01/20/23 11/02/24 History melatonin 5 mg tablet 5 mg PO HS PRN Insomnia 01/21/23 11/02/24 History vitamins A,C,B-qcpy-gwmqtm 2,148 1 tab PO BID 01/21/23 11/02/24 History mcg-113 mg-45 mg-17.4 mg tablet gabapentin 300 mg capsule 300 mg PO BID 11/02/24 11/02/24 History acetaminophen 500 mg tablet 1,000 mg (2 x 500 mg) PO TID #90 11/03/24 Rx (Tylenol Extra Strength) tabs baclofen 10 mg tablet 5 mg (1/2 x 10 mg) PO TID 10 days 11/03/24 Rx #15 tabs hydromorphone 2 mg tablet 2 mg PO Q4H PRN pain #12 tabs 11/03/24 Rx (Dilaudid) Hospital Stay Data Consultations 11/02/24 02:13 ED Decision to Admit Stat Diagnostic Imagining Performed 11/01/24 23:11 CT lumbar spine wo con Stat Reviewed imaging, laboratory and diagnostic studies. Pertinent findings as below. WBCs 4.2 Hemoglobin 12.5 Platelets 218 Electrolytes within normal range Creatinine 0.71 Pending Results Patient Have Any Pending Studies at Discharge: No Discharge Instructions Given to Patient (Per Discharging Provider) Follow-up with your outpatient appointments for your compression fracture as already scheduled Total Time Total Time Spent Total Time Spent (In Minutes): 25
== END 2024-11-03 17:58 | disposition home or self-care (01) | DRG 544 ==
LOC: ED 20:50 → EDINP 11-02 06:12 → SUATTDRO 11-02 06:12 → 3W 11-02 09:11

== ENCOUNTER 2025-07-11 15:51 | Inpatient (IN) ==
[2025-07-11] MEDS: ONDANSETRON INJ 2 MG/ML 2 ML VIAL IV STA (16:21)
[2025-07-11] MEDS: HYDROmorphone INJ 1 MG/ML SYRINGE IV STA (16:21)
[2025-07-11] MEDS: OPTIRAY 320 100ml IV ONE (16:30)
[2025-07-11 16:31] LABS: Hematocrit (blood only) 38.5 % (37.0-47.0); Hemoglobin 12.5 g/dl (12.0-16.0); Immature Granulocytes # (auto) 0.09 K/uL (0.01-0.20); Immature Granulocytes % (auto) 1.4 %; Mean Corpuscular Hemoglobin 28.7 pg (25.0-34.0); Mean Corpuscular Volume 88.3 fL (80.0-100.0); Platelet Count 153 K/uL (130-400); RDW Standard Deviation 41.9 fL (36.4-46.3); Red Blood Count 4.36 M/uL (4.20-5.40); White Blood Count 6.29 K/ul (4.8-10.8)
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
[2025-07-11 16:49] LABS: Alanine Aminotransferase 21.0 U/L (7-52); Albumin Globulin Ratio 1.2 (0.9-2); Albumin Level 3.6 gm/dl (3.4-5.0); Alkaline Phosphatase 67.0 U/L (34-104); Anion Gap 10.0 (3-11); Bilirubin,Total 0.8 mg/dl (0.2-1.0); Blood Urea Nitrogen 18.0 mg/dl (6-23); Calcium 9.1 mg/dl (8.6-10.3); Carbon Dioxide 23.0 mmol/L (21-32); Chloride 107.0 mmol/L (98-107); Creatine Kinase 52.0 U/L (26-192); Creatinine Clr Calc Pharmacy 59.9 ml/min; Globulin 2.9 gm/dl (2.5-4.0); Glucose 115.0 mg/dl (70-99(Fasting)); Lipase 29.0 U/L (11-82); Potassium 4.1 mmol/L (3.5-5.1); Sodium 140.0 mmol/L (136-145); Total Protein 6.5 gm/dl (6.0-8.3)
--- NOTE | 2025-07-11 16:56 | CT Scan Report ---
CT CERVICAL SPINE WITHOUT CONTRAST: HISTORY: TRAUMA TECHNIQUE: Noncontrast CT examination of the cervical spine is performed. Coronal and sagittal reformats were created. COMPARISON: None FINDINGS: CERVICAL SPINE: There is no significant vertebral body height loss. No acute traumatic fracture identified in the cervical spine. There is an acute/subacute appearing compression fracture of T2 vertebral body resulting in anterior wedging with approximately 40% vertebral body height loss without significant retropulsion. Questionable fracture of the left second rib posteriorly near the costovertebral junction There is no significant spondylolisthesis. Multilevel degenerative changes characterized by disc osteophyte complex, bilateral facet and uncovertebral hypertrophy resulting and neural foraminal narrowing at multiple levels, worst at mid to lower spine. Visualized soft tissues of neck are unremarkable. Visualized lung apex is clear. IMPRESSION: No acute traumatic fracture identified in the cervical spine. There is an acute/subacute appearing compression fracture of T2 vertebral body resulting in anterior wedging with approximately 40% vertebral body height loss without significant retropulsion. Questionable fracture of the left second rib posteriorly near the costovertebral junction Electronically signed by Dominic Haq 07-11-2025 4:54 PM
--- NOTE | 2025-07-11 16:56 | CT Scan Report ---
CT HEAD: HISTORY: Trauma TECHNIQUE: Noncontrast CT examination of the head is performed. Coronal and sagittal reformats were created. COMPARISON: None FINDINGS: There is no evidence of intracranial hemorrhage, focal mass effect or midline shift. No fluid collection is identified. The ventricular system is midline and symmetric. No evidence of acute major vascular territory infarction. Age-related involutional changes of the brain and chronic white matter ischemic changes. Small meningioma measuring 7 mm overlying the left frontal convexity. No calvarial fracture is identified. The paranasal sinuses and mastoids are well aerated. IMPRESSION: No acute intracranial process identified. Chronic findings as above Electronically signed by Dominic Haq 07-11-2025 4:55 PM
[2025-07-11 16:57] LABS: INR 1.0 (0.9-1.1); Partial Thromboplastin Time 23 Seconds (21-31); Prothrombin Time 10.9 Seconds (9.0-12.0)
--- NOTE | 2025-07-11 17:14 | CT Scan Report ---
CT ABDOMEN and PELVIS with INTRAVENOUS CONTRAST HISTORY: Abdominal pain TECHNIQUE: CT abdomen and pelvis with contrast. IV CONTRAST: 100 mL of OMNIPAQUE 300 ENTERIC CONTRAST: Not Given COMPARISON: CT abdomen pelvis October 21, 2024 FINDINGS: LIVER: Hepatic steatosis. Unchanged left hepatic lobe hypodensity measuring 1.2 cm is probably a cyst or a hemangioma. GALLBLADDER/BILIARY: Unremarkable gallbladder. No abnormal biliary dilatation. SPLEEN: Mild splenomegaly.. PANCREAS: Unremarkable. ADRENALS: Unremarkable. KIDNEYS: Unremarkable. No stones or hydronephrosis identified. PERITONEUM/RETROPERITONEUM. No lymphadenopathy by size criteria. No aortic aneurysm. Moderate atherosclerosis GASTROINTESTINAL: No obstruction. Colonic diverticulosis without evidence of diverticulitis. REPRODUCTIVE: No suspicious pelvic mass is identified. URINARY BLADDER: Unremarkable. BONES: Acute traumatic intertrochanteric and subtrochanteric fractures of the left femur with impaction and varus angulation. Chronic appearing fracture of the L3 vertebral body without significant retropulsion Chronic appearing fractures of right fourth and fifth ribs. IMPRESSION: Acute traumatic intertrochanteric and subtrochanteric fractures of the left femur with impaction and varus angulation. Electronically signed by Dominic Haq 07-11-2025 5:14 PM
--- NOTE | 2025-07-11 17:23 | XRay Report ---
INDICATION: Trauma TECHNIQUE: 2 views of the left tibia-fibula were obtained. COMPARISON: None FINDINGS: Irregular lucency in the proximal fibular shaft is suspicious for an traumatic fracture. Old/healed fracture deformity of the distal fibula with callus IMPRESSION: Irregular lucency in the proximal fibular shaft is suspicious for an traumatic fracture. Electronically signed by Dominic Haq 07-11-2025 5:23 PM
--- NOTE | 2025-07-11 17:24 | XRay Report ---
INDICATION: Trauma TECHNIQUE: Frontal pelvic radiograph was obtained. COMPARISON: None FINDINGS: Acute traumatic impacted fractures of the left femur with both intertrochanteric and subtrochanteric components. There is varus angulation. IMPRESSION: Acute traumatic impacted fractures of the left femur with both intertrochanteric and subtrochanteric components. Electronically signed by Dominic Haq 07-11-2025 5:24 PM
--- NOTE | 2025-07-11 17:24 | XRay Report ---
INDICATION: TRAUMA TECHNIQUE: 3 views of the left ankle were obtained. COMPARISON: None FINDINGS: No displaced acute osseous process is identified. Chronic/old fracture deformity of the distal fibula with callus formation IMPRESSION: No displaced acute osseous process is identified. Electronically signed by Dominic Haq 07-11-2025 5:23 PM
--- NOTE | 2025-07-11 17:24 | XRay Report ---
INDICATION: Trauma TECHNIQUE: 2 views of the left femur were obtained. COMPARISON: None FINDINGS: Acute traumatic impacted fractures of the left femur with both intertrochanteric and subtrochanteric components. There is varus angulation. IMPRESSION: Acute traumatic impacted fractures of the left femur with both intertrochanteric and subtrochanteric components. Electronically signed by Dominic Haq 07-11-2025 5:23 PM
--- NOTE | 2025-07-11 17:24 | XRay Report ---
EXAM: Portable AP chest radiograph TECHNIQUE: AP portable radiograph of the chest was obtained. INDICATION: Trauma Comparison: None FINDINGS: LINES and TUBES: None CARDIOVASCULAR: Cardiac silhouette is enlarged in size. LUNGS/PLEURA: Mild interstitial pulmonary edema. No focal consolidation identified. No significant pleural fluid. No discernible pneumothorax. IMPRESSION: Congestive changes of the cardiovascular system. Electronically signed by Dominic Haq 07-11-2025 5:23 PM
--- NOTE | 2025-07-11 17:48 | CT Scan Report ---
Clinical history: Trauma Technique: Axial computed tomography images were obtained of the chest after the administration of intravenous contrast Findings: There is a 3 mm peripheral nodule in the left lower lobe. There is mild subsegmental atelectasis in both lower lobes. There is no pleural effusion or pneumothorax. There is no sign of pulmonary fibrosis or other diffuse interstitial process. No endobronchial lesion is seen There is no mediastinal, hilar, or axillary adenopathy. The thoracic aorta appears unremarkable with no sign of aneurysm or dissection. There is no pericardial effusion There is a small hiatal hernia. There is a 1.5 cm cyst in the left hepatic lobe. No fracture is seen. No focal osseous lesion is evident Impression: 1. No definite sign of injury after trauma 2. Small left lower lobe nodule, most likely benign. If there is a history of smoking or other high-risk indicators, a follow-up chest CT could be obtained in 6 months 3. Mild bilateral lower lobe atelectasis 4. Small hiatal hernia 5. Hepatic cyst ACT 112: Positive. There are findings on this exam that require communication between the performing entity and the patient following Patient Test Result Information Act ([place] ACT 112) guidelines. Electronically signed by Balaji Cobian 07-11-2025 5:47 PM
[2025-07-11] MEDS ORDERED: MoRPHine SULFATE 2 MG/ML CARP IV PRN (18:50)
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
[2025-07-11 20:10] LABS: Appearance Urine Clear (Clear); Glucose Urine UA Negative (Negative)
[2025-07-11] MEDS: MoRPHine SULFATE 4 MG/ML 1 ML CARP\\VIAL IV PRN (21:44)
[2025-07-11] MEDS ORDERED: KETOROLAC TROMETHAMINE 15 MG/ML VIAL IV PRN (22:12)
[2025-07-11] MEDS ORDERED: ALUMINUM/MAGNESIUM SUSP 30 ML UDC PO PRN (22:12)
[2025-07-11] MEDS ORDERED: MoRPHine SULFATE 4 MG/ML 1 ML CARP\\VIAL IV PRN (22:12)
[2025-07-11] MEDS ORDERED: POLYETHYLENE (MIRALAX) 17 GM PACK PO PRN (22:12)
[2025-07-11] MEDS ORDERED: MELATONIN 3 MG TAB PO PRN (22:12)
[2025-07-11] MEDS: ACETAMINOPHEN 500 MG TAB PO SCH (22:34)
[2025-07-12] MEDS: SERTRALINE HCL 100 MG TABLET PO SCH (00:27)
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
[2025-07-12 07:21] LABS: Hematocrit (blood only) 32.9 % (37.0-47.0); Hemoglobin 10.6 g/dl (12.0-16.0); Mean Corpuscular Hemoglobin 28.9 pg (25.0-34.0); Mean Corpuscular Volume 89.6 fL (80.0-100.0); Platelet Count 141 K/uL (130-400); RDW Standard Deviation 42.3 fL (36.4-46.3); Red Blood Count 3.67 M/uL (4.20-5.40); White Blood Count 8.65 K/ul (4.8-10.8)
[2025-07-12] MEDS ORDERED: ONDANSETRON INJ 2 MG/ML 2 ML VIAL ONE (07:28)
[2025-07-12] MEDS ORDERED: PROPOFOL IV EMULSION 10 MG/ML 20 ML VIAL IV ONE (07:28)
[2025-07-12] MEDS ORDERED: DEXAMETHASONE SOD INJ 4 MG/ML VIAL ONE (07:28)
[2025-07-12 07:34] LABS: Anion Gap 5.0 (3-11); Blood Urea Nitrogen 19.0 mg/dl (6-23); Calcium 8.6 mg/dl (8.6-10.3); Carbon Dioxide 27.0 mmol/L (21-32); Chloride 106.0 mmol/L (98-107); Creatinine Clr Calc Pharmacy 53.5 ml/min; Glucose 136.0 mg/dl (70-99(Fasting)); Potassium 4.6 mmol/L (3.5-5.1); Sodium 138.0 mmol/L (136-145)
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
[2025-07-12] MEDS ORDERED: SERTRALINE HCL 100 MG TABLET PO SCH (09:00)
[2025-07-12] MEDS ORDERED: HYDROmorphone INJ 2 MG/ML SYR/VIAL IV PRN (09:11)
[2025-07-12] MEDS ORDERED: HYDROmorphone INJ 1 MG/ML SYRINGE IV PRN (09:11)
[2025-07-12] MEDS ORDERED: ONDANSETRON INJ 2 MG/ML 2 ML VIAL IV PRN (09:11)
[2025-07-12] MEDS ORDERED: ATROPINE SULFATE 0.1 MG/ML 10ML SYR IV PRN (09:11)
--- NOTE | 2025-07-12 09:11 | Anesthesiology Consultation ---
Date of Service July 12, 2025 Assessment & Plan Chart Review Chart Review: Acceptable Risk for Surgery Consults Requested none ASA ASA2 Proposed Anesthesia Anesthesia Type: General (Pt preference ) History Surgery Operation Date: 07/12/25 07:00 Proposed Procedures p Left Long Troch Nail - Shaheed Keagan Romero MD Height/Weight Height: 5 ft 2 in Weight: 90.591 kg Allergies Allergy/AdvReac Type Severity Reaction Status Date / Time No Known Drug Allergies AdvReac Verified 11/29/24 13:10 Medications Home Medications Medication Instructions Recorded Confirmed Last Taken cholecalciferol (vitamin D3) 25 25 mcg PO DAILY 01/20/23 07/11/25 Unknown mcg (1,000 unit) tablet cyanocobalamin (vitamin B-12) 1,000 mcg PO DAILY 01/20/23 07/11/25 Unknown 1,000 mcg tablet sertraline 100 mg tablet 200 mg PO DAILY 01/20/23 07/11/25 Unknown vitamins A,C,V-lfas-irknwr 2,148 1 tab PO BID 01/21/23 07/11/25 Unknown mcg-113 mg-45 mg-17.4 mg tablet acetaminophen 500 mg tablet 1,000 mg (2 x 500 mg) PO TID #90 11/03/24 07/11/25 Unknown (Tylenol Extra Strength) tabs Active Medications Generic Name Dose Route Start Last Admin Trade Name [place] PRN Reason Stop Dose Admin Acetaminophen 1,000 mg 07/11/25 22:12 07/11/25 22:34 Acetaminophen 500 Mg Tab PO 08/10/25 22:11 1,000 mg TID ZULEYMA Administration Sertraline HCl 200 mg 07/11/25 23:00 07/12/25 00:27 Sertraline Hcl 100 Mg Tablet PO 08/10/25 22:59 200 mg HS ZULEYMA Administration NPO Date Last Intake of Fluids: 07/11/25 Time Last Intake of Fluids: 20:00 Date Last Intake of Solids: 07/11/25 Time Last Intake of Solids: 16:00 Last Intake of Solids Comment: Greater then 8 hrs Past Medical History Medical History Hyperlipidemia Moderate mitral regurgitation Moderate aortic stenosis DDD (degenerative disc disease), lumbar Collapse of right external ear canal SNHL (sensorineural hearing loss) Cerumen impaction Cataract Varicose vein of leg Depression Exercise / Class Metabolic Activity II 4-5 Yardwork/Stairs/Walk up hill Past Family History Family History Father Hearing loss Stroke Aunt Asthma FHx: allergies Other No family history of adverse response to anesthesia No family history of bleeding disorder Past Surgical History Surgical History History of vein stripping H/O cataract removal with insertion of prosthetic lens Past Anesthesia History No Hx of Anesthesia Complications and No Family Hx of Anesthesia Complications Social History Smoking Status: Former smoker Do You Dip or Chew Tobacco: No Hx Alcohol Use: Yes Alcohol type: beer and wine alcohol intake frequency: holidays/special occasions only Hx Substance Use: No Physical Exam Vital Signs Last Vital Signs Temp 36.8 C 07/12/25 08:46 Pulse 74 07/12/25 08:46 Resp 18 07/12/25 08:46 BP 156/56 H 07/12/25 08:46 Pulse Ox 93 07/12/25 08:46 O2 Del Method Room Air 07/12/25 08:46 O2 Flow Rate 2 07/11/25 19:24 Constitutional no acute distress ENMT Mouth: no dentition abnormality Thyromental Distance: > or= 3.5 Finger Breadths Mallampati Class: II Neck normal visual inspection Respiratory normal respiratory effort Cardiovascular Rate/Rhythm: regular rate and regular rhythm Neurologic moves all extremities (LLE pain ) Psychiatric Orientation: alert and oriented x 3 Testing Laboratory Results 07/12/25 06:55 07/12/25 06:55 PT 10.9 Seconds (9.0-12.0) 07/11/25 16:10 INR 1.0 (0.9-1.1) 07/11/25 16:10 APTT 23 Seconds (21-31) 07/11/25 16:10 Urine Color Yellow 07/11/25 20:01 Urine Appearance Clear (Clear) 07/11/25 20:01 Urine pH 5.5 (4.5-7.5) 07/11/25 20:01 Ur Specific [place] > 1.045 (1.000-1.030) H 07/11/25 20:01 Urine Protein Negative (Negative) 07/11/25 20:01 Urine Glucose (UA) Negative (Negative) 07/11/25 20:01 Urine Ketones Trace (Negative) H 07/11/25 20:01 Urine Nitrite Negative (Negative) 07/11/25 20: Ur Leukocyte Esterase Negative (Negative) 07/11/25 20:01
[2025-07-12] MEDS: LACTATED RINGER'S 1,000 ML IV SCH ×2 (09:14)
[2025-07-12] MEDS: SCOPOLAMINE 1 MG/72 HR TDSY PATCH TD SCH (09:28)
[2025-07-12] MEDS: TRANEXAMIC ACID / 0.7% NACL 1,000 MG/100 ML BAG IV SCH (10:06)
[2025-07-12] MEDS ORDERED: ROCURONIUM BROMIDE 10 MG/ML 5 ML VIAL IV ONE ×3 (10:15→12:15)
[2025-07-12] MEDS ORDERED: SUGAMMADEX SODIUM 200 MG/2 ML VIAL IV ONE (10:15)
[2025-07-12] MEDS ORDERED: HYDROmorphone INJ 2 MG/ML SYR/VIAL ONE ×2 (10:17→12:31)
[2025-07-12] MEDS ORDERED: PHENYLEPHRINE 100MCG/ML 5ML SYR ONE (10:32)
[2025-07-12] MEDS ORDERED: ePHEDrine sulfate 50 MG/5 ML SYR ONE (10:32)
[2025-07-12] MEDS: BUPIVACAINE 0.5 % 5 MG/1 ML MPF 30ML VIAL ONE (12:56)
[2025-07-12] MEDS: LIDOCAINE 1% LOCAL 20 ML VIAL ONE (12:56)
--- NOTE | 2025-07-12 12:59 | Post Operative Brief Note ---
Immediate Post Op Note Date of Surgery July 12, 2025 Pre & Post Diagnosis Operation Date: 07/12/25 07:00 Pre-Op Diagnosis: Left hip Fracture Post-Op Diagnosis: Left hip Fracture I identified the patient and participated in the time-out.: Yes Procedure Operation Date: 07/12/25 07:00 Actual Procedures p Insertion of Long Trochanteric Nail Left hip Fracture(Left) - Shaheed Romero MD Surgeon Shaheed Romero MD Mar[employer] Polisher Hand Keagan Syed PA-C (No fellow avail) Estimated Blood Loss 100 Findings Consistent with Post-Op Diagnosis Fluids 1000 cc Anesthesia Type General Complications none
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
--- NOTE | 2025-07-12 13:37 | Operative Report ---
Post Operative Report Pre & Post Diagnosis Operation Date: 07/12/25 07:00 Pre-Op Diagnosis: Left Hip Fracture, Intratrochanteric/Subtroch Post-Op Diagnosis: Left Hip Fracture, Intratrochanteric/Subtroch I identified the patient and participated in the time-out.: Yes Procedure Operation Date: 07/12/25 07:00 Actual Procedures p Insertion of Long Trochanteric Nail Left Hip Fracture(Left) - Shaheed Romero MD Surgeon Shaheed Romero MD Weatherization Technician Keagan Syed PA-C (No fellow avail) Estimated Blood Loss 100 Findings Consistent with Post-Op Diagnosis Specimens None Description of Procedure I was present for the entire case. I assisted with patient positioning, prepping, draping, retraction, suctioning, equipment management, wound closure, dressing application. Please refer to Dr. Romero's procedure note for full details. I attest to the content of the Intraoperative Record and any orders documented therein. Any exceptions are noted below.
--- NOTE | 2025-07-12 13:59 | Fluoroscopy Report ---
FL femur LT 2V CLINICAL HISTORY: LT LONG TROCH NAIL COMPARISON STUDY: 07/11/2025 FLUOROSCOPY TIME: 217 seconds FLUOROSCOPY IMAGES: 5 EXPOSURE DOSE: 60 mGy FINDINGS: Fluoroscopy was provided for placement of left femoral gamma nail. IMPRESSION: Intraoperative fluoroscopy. ACT 112: Negative or not required by law. Electronically signed by: Arnie Bloom M.D. 07/12/2025 1:58 PM
--- NOTE | 2025-07-12 14:14 | Anesthesiology Progress Note ---
Date of Service July 12, 2025 Anesthesia Post Procedure Vital Signs Vital Signs: Temp Pulse Pulse Pulse Resp BP BP 07/12/25 14:05 36.6 C 85 12 07/12/25 13:55 85 12 07/12/25 13:45 92 H 12 07/12/25 13:35 84 16 07/12/25 13:25 36 C L 75 18 07/12/25 08:46 36.8 C 74 18 156/56 H 07/12/25 08:00 36.8 C 65 18 07/11/25 22:14 36.3 C L 83 15 07/11/25 21:50 63 16 151/90 H 07/11/25 21:00 61 16 07/11/25 21:00 61 16 07/11/25 20:00 52 L 16 07/11/25 19:59 62 07/11/25 19:24 51 L 16 07/11/25 19:24 51 L 16 07/11/25 19:24 07/11/25 19:00 36.8 C 59 L 20 07/11/25 18:00 61 141/69 H 07/11/25 18:00 55 L 15 07/11/25 18:00 36.5 C 60 20 07/11/25 17:36 59 L 16 07/11/25 17:06 61 17 07/11/25 17:00 160/71 H 07/11/25 17:00 160/71 H 07/11/25 17:00 36.5 C 63 20 07/11/25 16:54 68 17 07/11/25 16:45 74 13 07/11/25 16:39 76 12 07/11/25 16:37 160/82 H 07/11/25 16:37 160/82 H 07/11/25 16:37 160/82 H 07/11/25 16:16 67 147/83 H 07/11/25 16:15 73 07/11/25 16:10 72 07/11/25 16:09 73 07/11/25 16:07 36.7 C 64 20 171/93 H 07/11/25 16:04 171/93 H 07/11/25 16:04 171/93 H 07/11/25 16:00 36.7 C 72 20 07/11/25 15:56 36.7 C 67 20 171/93 H BP Pulse Ox O2 Del Method O2 Flow Rate 07/12/25 14:05 164/87 H 98 Nasal Cannula 2 07/12/25 13:55 163/76 H 92 Nasal Cannula 2 07/12/25 13:45 167/84 H 96 Oxymask 3 07/12/25 13:35 115/75 96 Oxymask 3 07/12/25 13:25 157/78 H 95 Oxymask 6 07/12/25 08:46 93 Room Air 07/12/25 08:00 158/77 H 93 Room Air 07/11/25 22:14 151/85 H 91 Room Air 07/11/25 21:50 97 Room Air 07/11/25 21:00 148/74 H 99 Room Air 07/11/25 21:00 148/74 H 99 Room Air 07/11/25 20:00 154/63 H 100 Room Air 07/11/25 19:59 07/11/25 19:24 95 Nasal Cannula 2 07/11/25 19:24 172/67 H 97 Nasal Cannula 2 07/11/25 19:24 98 Room Air 07/11/25 19:00 172/67 H 99 Nasal Cannula 2 07/11/25 18:00 07/11/25 18:00 96 07/11/25 18:00 141/69 H 97 Nasal Cannula 2 07/11/25 17:36 97 07/11/25 17:06 100 07/11/25 17:00 07/11/25 17:00 07/11/25 17:00 160/71 H 100 Nasal Cannula 2 07/11/25 16:54 100 07/11/25 16:45 100 07/11/25 16:39 99 07/11/25 16:37 07/11/25 16:37 07/11/25 16:37 07/11/25 16:16 07/11/25 16:15 92 07/11/25 16:10 07/11/25 16:09 92 07/11/25 16:07 92 Room Air 0 07/11/25 16:04 07/11/25 16:04 07/11/25 16:00 171/93 H 92 Room Air 07/11/25 15:56 92 Room Air Pain Intensity Hip: Pain Intensity: 2 Left Hip: Pain Intensity: 2 Transfer of Care Handoff Completed per policy Notes Mental Status: alert / awake / arousable Patient Amnestic to Procedure: Yes Nausea / Vomiting: adequately controlled Pain: adequately controlled Airway Patency, RR, SpO2: stable & adequate BP & HR: stable & adequate Hydration State: stable & adequate Anesthetic Complications: no major complications apparent and Pt Satisfied with anesthetic care
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
[2025-07-12] MEDS: ACETAMINOPHEN 500 MG TAB PO SCH (17:40)
[2025-07-12] MEDS: CHECK SCOPOLAMINE PATCH PLACEMENT SCH (17:41)
[2025-07-12] MEDS: ASPIRIN 81 MG ECTAB PO SCH (20:23)
[2025-07-13 07:39] LABS: Hematocrit (blood only) 25.0 % (37.0-47.0); Hemoglobin 8.3 g/dl (12.0-16.0); Mean Corpuscular Hemoglobin 29.1 pg (25.0-34.0); Mean Corpuscular Volume 87.7 fL (80.0-100.0); Platelet Count 134 K/uL (130-400); RDW Standard Deviation 41.2 fL (36.4-46.3); Red Blood Count 2.85 M/uL (4.20-5.40); White Blood Count 10.23 K/ul (4.8-10.8)
[2025-07-13 07:59] LABS: Anion Gap 6.0 (3-11); Blood Urea Nitrogen 28.0 mg/dl (6-23); Calcium 8.0 mg/dl (8.6-10.3); Carbon Dioxide 27.0 mmol/L (21-32); Chloride 101.0 mmol/L (98-107); Creatinine Clr Calc Pharmacy 34.4 ml/min; Glucose 145.0 mg/dl (70-99(Fasting)); Magnesium 1.8 mg/dl (1.7-2.4); Potassium 5.1 mmol/L (3.5-5.1); Sodium 134.0 mmol/L (136-145)
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
--- NOTE | 2025-07-13 09:27 | Orthopedic Progress Note ---
Date of Service July 13, 2025 Assessment & Plan (1) Fracture of proximal end of fibula: Plan: Acute vs age indeterminate. Either way we will plan to treat conservatively. She may weight-bear as tolerated. If she has trouble weightbearing fully then can partial weight-bear with the assistance of her walker. Ice and elevate as needed for pain or swelling. Allowed for full knee range of motion and ankle range of motion as tolerated. Utilize walker to assist with ambulation No need for knee immobilizer or cam boot at this time. SCDs knee-high on left lower extremity. Knee high TEDS have been ordered for B/L lower extremities. Aspirin 81 mg twice daily for DVT prophylaxis Will follow and recheck as outpatient at follow up appointments. Will update Dr. Romero of findings. Case management for disposition (2) Closed fracture of left hip requiring operative repair: Plan: POD 1-status post ORIF left femur fracture with Dr. Romero PT and OT to start today. May weight-bear as tolerated left lower extremity with the assistance of a walker at all times. No hip precautions necessary; may do full range of motion of her hip, knee and ankle as tolerated. Keep dressings in place for today. Will plan for dressing change tomorrow on 07/14/2025 Aspirin 81 mg p.o. twice daily for DVT prophylaxis along with SCDs knee-high bilateral lower extremities. Knee high TEDS have been ordered for B/L lower extremities. Recommend heels off of bed and heel protection when in bed. Ice to left hip as needed for pain or swelling. Elevate left lower extremity as needed for edema. Case management for disposition -she would like to return to her first level apartment at the [facility]. Postoperative instructions and follow-up appointments have been scheduled. Will continue to follow at this time. Admission and Anticipated Discharge Date Admission Date: July 11, 2025 Reji Parr is resting in bed. Denies pain at rest but states she does have pain with any type of movement in the left side of her chest as well as her left leg. She has not been out of bed. She is tolerating a regular diet. She has been on Tylenol for pain. She states she does feel little "foggy this morning". Physical Exam Musculoskeletal: Exam focused on her left lower extremity: She has multiple areas of ecchymosis on the left leg. Full ankle range of motion with normal strength Distal pulses are 1+. Sensation throughout the left leg is normal. Mild discomfort with calf palpation today. Although I believe it is just sore due to the multiple ecchymotic areas and her proximal fibula fracture. Mild tenderness over the proximal fibula; but similar tenderness throughout the entire left lower extremity with palpation. She is unable to independently lift her leg off the bed but can lift her foot off the bed about 1 inch. Unable to actively bend her knee. Tolerates logrolling of her left hip Postoperative dressings are clean, dry and intact. No bloody drainage visualized. Mild edema of the left leg as compared to the right Results & Data Vital Signs (Past 12 Hours) Vital Signs Temp Pulse Resp BP Pulse Ox O2 Del Method 07/13/25 06:57 37.3 C 87 18 164/72 H 86 L Room Air 07/12/25 22:15 36.7 C 90 18 134/79 92 Room Air Laboratory Results 07/13/25 07/11/25 Range/Units 07:23 16:10 WBC 10.23 (4.8-10.8) K/ul RBC 2.85 L (4.20-5.40) M/uL Hgb 8.3 L (12.0-16.0) g/dl Hct 25.0 L (37.0-47.0) % MCV 87.7 (80.0-100.0) fL MCH 29.1 (25.0-34.0) pg MCHC 33.2 (32.0-36.0) g/dL RDW Std Deviation 41.2 (36.4-46.3) fL RDW Coeff of Galdino 13.0 (11.5-14.5) % Plt Count 134 (130-400) K/uL MPV 9.9 (9.4-12.4) fL Sodium 134 L (136-145) mmol/L Potassium 5.1 (3.5-5.1) mmol/L Chloride 101 (98-107) mmol/L Carbon Dioxide 27 (21-32) mmol/L Anion Gap 6 (3-11) BUN 28 H (6-23) mg/dl Creatinine 1.23 H D (0.6-1.2) mg/dl Est Cr Clr Drug Dosing 34.4 ml/min eGFR 42.80 BUN/Creatinine Ratio 22.8 H (10-20) Glucose 145 H (70-99(Fasting)) mg/dl Calcium 8.0 L (8.6-10.3) mg/dl Magnesium 1.8 (1.7-2.4) mg/dl 25-OH Vitamin D Total 46.7 (30-100) ng/ml (1) Fracture of proximal end of fibula Encounter type: initial encounter Fracture morphology: unspecified fracture morphology Fracture type: closed Laterality: left Qualified Code(s): S82.832A - Other fracture of upper and lower end of left fibula, initial encounter for closed fracture (2) Closed fracture of left hip requiring operative repair Encounter type: initial encounter Qualified Code(s): S72.002A - Fracture of unspecified part of neck of left femur, initial encounter for closed fracture
[2025-07-13] MEDS: LACTATED RINGER'S 1,000 ML IV SCH (09:35)
[2025-07-13] MEDS ORDERED: NALOXONE HCL 0.4 MG/1 ML VIAL/CARP IV PRN (10:31)
[2025-07-13] MEDS: LIDOCAINE 5% 1 PATCH TD SCH (11:59)
[2025-07-13] MEDS: MECLIZINE 12.5 MG TAB PO PRN (11:59)
[2025-07-13 16:10] LABS: Anion Gap 5.0 (3-11); Blood Urea Nitrogen 28.0 mg/dl (6-23); Calcium 8.0 mg/dl (8.6-10.3); Carbon Dioxide 27.0 mmol/L (21-32); Chloride 101.0 mmol/L (98-107); Creatinine Clr Calc Pharmacy 34.4 ml/min; Glucose 136.0 mg/dl (70-99(Fasting)); Potassium 4.7 mmol/L (3.5-5.1); Sodium 133.0 mmol/L (136-145)
[2025-07-13] MEDS: REMOVE LIDODERM PATCH SCH (20:50)
[2025-07-13] MEDS ORDERED: PROMETHAZINE 6.25 MG/50.25 ML BAG IV PRN (23:26)
--- NOTE | 2025-07-13 23:30 | Communication Note ---
Date of Service: July 13, 2025 Patient with worsening confusion and nausea as per RN. Complaining of SOB without chest pain/cough/abdominal pain complaints. O2 sats 80s on room air Lasix given for pulmonary congestion on CXR 07/11 Chest x-ray as per my interpretation atelectasis AP Encephalopathy Multifactorial: Hypoxemic respiratory failure rule out PE Scopolamine patch possibly contributory given [employer] MAKER side effects CT chest PE study Hold scopolamine patch for now
[2025-07-13] MEDS: PROMETHAZINE 6.25 MG/50.25 ML BAG IV STA (23:49)
[2025-07-13] MEDS: ALBUT/IPRATROP 3MG/0.5MG NEB 3 ML VIAL NEB STA (23:56)
[2025-07-13] MEDS: FUROSEMIDE 40 MG/4 ML VIAL IV ONE (23:58)
[2025-07-14 00:22] LABS: Base Excess VBG 1.0 mEq/L; HCO3 VBG 27 mmol/L; Oxygen Saturation VBG < 60.0 %; PCO2 VBG 48 mmHg (38-50); PO2 VBG 27 mmHg; pH VBG 7.36 (7.36-7.41)
[2025-07-14 00:42] LABS: Anion Gap 4.0 (3-11); Blood Urea Nitrogen 28.0 mg/dl (6-23); Calcium 8.1 mg/dl (8.6-10.3); Carbon Dioxide 28.0 mmol/L (21-32); Chloride 101.0 mmol/L (98-107); Creatinine Clr Calc Pharmacy 41.4 ml/min; Glucose 133.0 mg/dl (70-99(Fasting)); Potassium 4.4 mmol/L (3.5-5.1); Sodium 133.0 mmol/L (136-145)
[2025-07-14 01:16] LABS: Appearance Urine Clear (Clear); Glucose Urine UA Negative (Negative)
--- NOTE | 2025-07-14 02:35 | XRay Report ---
Exam(s): XR CXR 1 VIEW EXAM: XR Chest, 1 View CLINICAL HISTORY: Reason for exam: sob. TECHNIQUE: Frontal view of the chest. COMPARISON: Chest radiograph on 07/11/2025 FINDINGS: Hardware: None. Lungs/pleura: Mild left lower lung atelectasis. No focal consolidation. No pleural effusion or pneumothorax. Heart/mediastinum: Enlargement of the cardiac silhouette. Soft tissues: Unremarkable. Bones: No acute fracture. Upper abdomen: Normal. IMPRESSION: No acute disease identified. Electronically signed by: Marcel Mooney M.D. 07/14/25 02:34 AM
[2025-07-14] MEDS: OPTIRAY 320 125ml IV ONE (05:15)
--- NOTE | 2025-07-14 06:53 | CT Scan Report ---
EXAM: CT angio chest PE protocol CLINICAL HISTORY: Sob. TECHNIQUE: Contiguous 3.[address] angiographic images of the chest were acquired with the administration of intravenous contrast. Coronal and sagittal reconstructions were obtained. A total of 118 cc of Optiray 320 was administered for post-contrast images. One of the following 3D techniques was utilized: Maximum Intensity Pixel (MIP), 3D Reconstructed Images, Volume Rendered Images, or Surface Shaded Rendering. One of the following dose reduction techniques was utilized for this exam: automated exposure control, adjustment of the mA and/or kV according to patient size, and use of iterative reconstruction. CTDI: DLP: COMPARISON: Reviewed CT 07/11/2025. FINDINGS: Pulmonary Arteries: The pulmonary arteries are normal in size and opacification. There is no evidence of pulmonary embolism. There is no stenosis or filling defect. Aorta: The thoracic aorta is normal in caliber. There are mild atherosclerotic changes. There is no evidence of aneurysm or dissection. The aortic arch and descending thoracic aorta are unremarkable. Superior Vena Cava (SVC) and Inferior Vena Cava (IVC): There is normal opacification and caliber. There is no evidence of thrombus or obstruction. Mediastinum: There is no mediastinal mass or lymphadenopathy. There is a normal appearance of the thymus. Heart: There is cardiomegaly. There is no pericardial effusion. Lungs: The lungs show mild posterior basal dependent changes. There is a left lower lobe atelectatic band. There is no evidence of consolidation, nodules, or masses. There is no pleural effusion or thickening. Bones: There are no fractures or lytic/sclerotic lesions of the visualized bony structures. There is normal alignment and bone density. Soft Tissues: There is a normal appearance of the visualized soft tissues. There are no abnormal masses or fluid collections. The upper abdomen shows a liver segment III hypodense focal area, measuring 1.6 cm, likely a simple cyst. This is stable. IMPRESSION: 1. There is no evidence of PE; however, as contrast is seen simultaneously in the aorta and pulmonary artery, the possibility of a small branch occlusion cannot be entirely excluded. Please correlate clinically. 2. The PA diameter is at the upper limit of normal, measuring the MPA at 32 mm. The right PA is 26 mm, and the left is 25 mm. 3. There are mild atherosclerotic changes of the thoracic aorta and coronary vessels. 4. There are no significant interval changes. Electronically signed by Pacheco Mcintyre 07-14-2025 06:53 AM
[2025-07-14 08:04] LABS: Anion Gap 5.0 (3-11); Blood Urea Nitrogen 25.0 mg/dl (6-23); Calcium 7.9 mg/dl (8.6-10.3); Carbon Dioxide 28.0 mmol/L (21-32); Chloride 102.0 mmol/L (98-107); Creatinine Clr Calc Pharmacy 52.4 ml/min; Glucose 127.0 mg/dl (70-99(Fasting)); Magnesium 1.9 mg/dl (1.7-2.4); Potassium 4.4 mmol/L (3.5-5.1); Sodium 135.0 mmol/L (136-145)
[2025-07-14 08:42] LABS: Hematocrit (blood only) 21.1 % (37.0-47.0); Hemoglobin 7.0 g/dl (12.0-16.0); Mean Corpuscular Hemoglobin 29.3 pg (25.0-34.0); Mean Corpuscular Volume 88.3 fL (80.0-100.0); Platelet Count 112 K/uL (130-400); RDW Standard Deviation 41.8 fL (36.4-46.3); Red Blood Count 2.39 M/uL (4.20-5.40); White Blood Count 7.75 K/ul (4.8-10.8)
--- NOTE | 2025-07-14 08:43 | Orthopedic Progress Note ---
Date of Service July 14, 2025 Assessment & Plan (1) Closed fracture of left hip requiring operative repair: Plan: The patient was educated regarding today's findings. Her dressings were changed. Silverlon dressing was applied proximally. Gauze and Tegaderm were applied distally. She may get the leg wet in the shower as these are waterproof. She was encouraged to participate with physical therapy. Weight- bear as tolerated with her walker. No hip precautions are necessary with the surgery. Continue DVT prophylaxis she is currently using aspirin 81 mg twice daily along with her SCDs and teds. Given her low H&H, she will need transfusion. She has already been typed and crossmatched by the hospitalist service. The patient will likely require prison facility placement upon departure from the hospital. Case management is already involved. Admission and Anticipated Discharge Date Admission Date: July 11, 2025 Subjective This 84-year-old female is seen today in her room. She is 2 days status post left hip troch nail placement. She states she has gotten out of bed once. She is looking forward to getting out of bed more as her pain level decreases. She denies any chest pain, nausea, or vomiting. She was noted to be short of breath and with hypoxia last evening. CT scan imaging of the chest was obtained that ruled out PE. She is currently at 98% on 2 L with nasal cannula. She still has her urinary catheter in place. No other new complaints. Physical Exam Physical Exam: General: Well-developed, elderly white female, in no acute distress. Laying in bed. Alert and oriented. Skin: Warm and dry with fair turgor. Extensive bruising on her left leg. Postsurgical dressings are in place on the lateral thigh. Upon removal, Zipline is in place proximally. [place] are in place distally. There is no active bleeding. No erythema or warmth. Musculoskeletal: The patient has intact motor function of her ankle and toes. Intact plantarflexion and dorsiflexion. Limited passive hip motion secondary to discomfort. Neurologic: Gross sensation is intact across the left leg by soft touch. Peripheral pulses are 2+. Results & Data Vital Signs (Past 12 Hours) Vital Signs Temp Pulse Resp BP Pulse Ox O2 Del Method O2 Flow Rate 07/14/25 07:02 36.9 C 84 18 117/53 L 98 Nasal Cannula 2 07/13/25 23:11 95 Nasal Cannula 2 07/13/25 23:10 83 150/73 H 86 L Room Air 07/13/25 22:45 37.1 C 87 16 153/84 H 91 Room Air Laboratory Results CBC obtained this morning shows white count of 7.75. H&H of 7.0 and 21.1. Platelets 112,000. PRP shows sodium 135, potassium 4.4, BUN of 25 with creatinine 0.81. Glucose this morning is 127. Calcium is low at 7.9. UA obtained today is entirely unremarkable. (1) Closed fracture of left hip requiring operative repair Encounter type: initial encounter Qualified Code(s): S72.002A - Fracture of unspecified part of neck of left femur, initial encounter for closed fracture
[2025-07-14] MEDS ORDERED: SODIUM CHLORIDE 0.9% 100 ML IV PRN (09:24)
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
[2025-07-15] MEDS: REMOVE TRANSDERM-SCOP PATCH ONE (04:46)
[2025-07-15 07:17] LABS: Hematocrit (blood only) 23.5 % (37.0-47.0); Hemoglobin 7.8 g/dl (12.0-16.0); Mean Corpuscular Hemoglobin 29.1 pg (25.0-34.0); Mean Corpuscular Volume 87.7 fL (80.0-100.0); Platelet Count 106 K/uL (130-400); RDW Standard Deviation 42.5 fL (36.4-46.3); Red Blood Count 2.68 M/uL (4.20-5.40); White Blood Count 5.74 K/ul (4.8-10.8)
[2025-07-15 08:29] LABS: Anion Gap 3.0 (3-11); Blood Urea Nitrogen 22.0 mg/dl (6-23); Calcium 8.0 mg/dl (8.6-10.3); Carbon Dioxide 30.0 mmol/L (21-32); Chloride 104.0 mmol/L (98-107); Creatinine Clr Calc Pharmacy 69.6 ml/min; Glucose 114.0 mg/dl (70-99(Fasting)); Potassium 3.9 mmol/L (3.5-5.1); Sodium 137.0 mmol/L (136-145)
--- NOTE | 2025-07-15 10:49 | Orthopedic Progress Note ---
Date of Service July 15, 2025 Assessment & Plan (1) Closed fracture of left hip requiring operative repair: Plan: All dressings are clean dry and intact left in place. Patient can be weightbearing as tolerated with walker assistance She needs to be participating with PT and OT to get out of bed to help decrease her chance of blood clots DVT prophylaxis with TERE stockings, SCDs and aspirin twice daily Patient was transfused yesterday with packed red blood cells. She states that she feels much better today but is still a little weak. Patient will most likely need to be discharged to a detention facility for rehabilitation. She states that she is a resident at the [facility] and would like to do her therapy at the [facility], however this may not be possible until she is functionally cleared to return home. Patient will need to follow-up with [facility] orthopedics in approximately 2 weeks for follow-up and x-rays of her left hip and lower leg. Admission and Anticipated Discharge Date Admission Date: July 11, 2025 Subjective This 84-year-old female is seen today in her room. She is 3 days status post left hip troch nail placement. Patient states she has not yet been out of bed ambulating with therapy. She states that she has also not been to the bathroom and they are utilizing a bedpan for her diarrhea. She currently has a urinary catheter in place. Patient states that her pain is well-controlled with the p.o. pain medication she is receiving. She denies any chest pain, nausea, or vomiting. Patient states that she had an episode of shortness of breath yesterday which has since resolved. She is no longer on any O2.Patient states she has difficulty lifting the left leg off of her bed. She states she has some mild discomfort near the proximal incision site but has no pain over her lower leg. Review of Systems Review of Systems: All systems reviewed & are unremarkable except as noted in Subjective Physical Exam Physical Exam: Left hip: Patient has significant ecchymosis extending from her hip joint distally to her ankle. She has no tenderness to palpation over the calf. It is soft and supple. She only has some mild discomfort to palpation over the lateral aspect of her distal fibula. She does experience some slight discomfort to palpation circumferentially around the proximal dressings. They are clean dry and intact and left in place. Passive knee range of motion is limited to 60 degrees. Patient experiences only minimal discomfort with light passive internal and external hip rotation and with logroll testing. She is unable to perform active straight leg raise test. She is able to actively dorsi and plantarflex her foot. Patient's peripheral pulses were 2+. She was neurovascularly intact in the left lower extremity. Results & Data Vital Signs (Past 12 Hours) Vital Signs Temp Pulse Resp BP Pulse Ox O2 Del Method 07/15/25 07:22 37.1 C 68 20 136/76 94 Room Air 07/14/25 23:00 36.8 C 88 20 161/83 H 93 Room Air Diagnostic Findings Laboratory Results WBC 5.74 K/ul (4.8-10.8) 07/15/25 06:53 RBC 2.68 M/uL (4.20-5.40) L 07/15/25 06:53 Hgb 7.8 g/dl (12.0-16.0) L 07/15/25 06:53 POC Hgb 12.9 g/dl (12.0-16.0) 07/11/25 16:14 Hct 23.5 % (37.0-47.0) L 07/15/25 06:53 POC Hct 38 % (37-47) 07/11/25 16:14 MCV 87.7 fL (80.0-100.0) 07/15/25 06:53 MCH 29.1 pg (25.0-34.0) 07/15/25 06:53 MCHC 33.2 g/dL (32.0-36.0) 07/15/25 06:53 RDW Std Deviation 42.5 fL (36.4-46.3) 07/15/25 06:53 RDW Coeff of [place] 13.7 % (11.5-14.5) 07/15/25 06:53 Plt Count 106 K/uL (130-400) L 07/15/25 06:53 MPV 9.7 fL (9.4-12.4) 07/15/25 06:53 Immature Gran % (Auto) 1.4 % 07/11/25 16:10 Neut % (Auto) 53.0 % 07/11/25 16:10 Lymph % (Auto) 39.0 % 07/11/25 16:10 [place] % (Auto) 5.4 % 07/11/25 16:10 Eos % (Auto) 1.0 % 07/11/25 16:10 Baso % (Auto) 0.2 % 07/11/25 16:10 Neut # (Auto) 3.34 K/uL (1.40-6.50) 07/11/25 16:10 Lymph # (Auto) 2.45 K/uL (1.20-3.40) 07/11/25 16:10 [place] # (Auto) 0.34 K/uL (0.11-0.59) 07/11/25 16:10 Eos # (Auto) 0.06 K/uL (0.00-0.50) 07/11/25 16:10 Baso # (Auto) 0.01 K/uL (0.00-0.20) 07/11/25 16:10 Immature Gran # (Auto) 0.09 K/uL (0.01-0.20) 07/11/25 16:10 Absolute Nucleated RBC 0.03 K/uL (0.00-0.12) 07/15/25 06:53 Nucleated RBC % (auto) 0.5 % 07/15/25 06:53 Platelet Estimate Cancelled 07/14/25 07:08 PT 10.9 Seconds (9.0-12.0) 07/11/25 16:10 INR 1.0 (0.9-1.1) 07/11/25 16:10 APTT 23 Seconds (21-31) 07/11/25 16:10 PTT Ratio 0.9 07/11/25 16:10 VBG pH 7.36 (7.36-7.41) 07/13/25 23:52 VBG pCO2 48 mmHg (38-50) 07/13/25 23:52 VBG pO2 27 mmHg 07/13/25 23:52 VBG HCO3 27 mmol/L 07/13/25 23:52 VBG O2 Saturation < 60.0 % 07/13/25 23:52 VBG Base Excess 1.0 mEq/L 07/13/25 23:52 POC Sodium 140 mmol/L (135-144) 07/11/25 16:14 Sodium 137 mmol/L (136-145) 07/15/25 06:53 POC Potassium 4.1 mmol/L (3.3-5.0) 07/11/25 16:14 Potassium 3.9 mmol/L (3.5-5.1) 07/15/25 06:53 POC Chloride 108 mmol/L (101-112) 07/11/25 16:14 Chloride 104 mmol/L (98-107) 07/15/25 06:53 Carbon Dioxide 30 mmol/L (21-32) 07/15/25 06:53 POC Total CO2 20 mmol/L (24-31) L 07/11/25 16:14 Anion Gap 3 (3-11) 07/15/25 06:53 POC Anion Gap 17.0 mmol/L (16-25) 07/11/25 16:14 POC BUN 17 mg/dl (7-18) 07/11/25 16:14 BUN 22 mg/dl (6-23) 07/15/25 06:53 Creatinine 0.61 mg/dl (0.6-1.2) 07/15/25 06:53 POC Creatinine 0.9 mg/dl (0.6-1.3) 07/11/25 16:14 Est Cr Clr Drug Dosing 69.6 ml/min 07/15/25 06:53 eGFR 87.01 07/15/25 06:53 BUN/Creatinine Ratio 36.1 (10-20) H 07/15/25 06:53 Glucose 114 mg/dl (70-99(Fasting)) H 07/15/25 06:53 POC Glucose (other) 119 mg/dl (70-99) H 07/11/25 16:14 Calcium 8.0 mg/dl (8.6-10.3) L 07/15/25 06:53 POC Ioniz Calcium John 1.17 mmol/l (1.12-1.32) 07/11/25 16:14 Magnesium 1.9 mg/dl (1.7-2.4) 07/14/25 07:08 Total Bilirubin 0.8 mg/dl (0.2-1.0) 07/11/25 16:10 AST 30 U/L (13-39) 07/11/25 16:10 ALT 21 U/L (7-52) 07/11/25 16:10 Alkaline Phosphatase 67 U/L (34-104) 07/11/25 16:10 Ammonia 27.0 umol/L (18-72) 07/13/25 23:52 Total Creatine Kinase 52 U/L (26-192) 07/11/25 16:10 Troponin I High Sens 6.4 pg/ml (0-14) 07/11/25 16:10 Total Protein 6.5 gm/dl (6.0-8.3) 07/11/25 16:10 Albumin 3.6 gm/dl (3.4-5.0) 07/11/25 16:10 Globulin 2.9 gm/dl (2.5-4.0) 07/11/25 16:10 Albumin/Globulin Ratio 1.2 (0.9-2) 07/11/25 16:10 Lipase 29 U/L (11-82) 07/11/25 16:10 25-OH Vitamin D Total 46.7 ng/ml (30-100) 07/11/25 16:10 Urine Color Yellow 07/14/25 01:00 Urine Appearance Clear (Clear) 07/14/25 01:00 Urine pH 6.0 (4.5-7.5) 07/14/25 01:00 Ur Specific [place] 1.007 (1.000-1.030) 07/14/25 01:00 Urine Protein Negative (Negative) 07/14/25 01:00 Urine Glucose (UA) Negative (Negative) 07/14/25 01:00 Urine Ketones Negative (Negative) 07/14/25 01:00 Urine Blood Negative (Negative) 07/14/25 01:00 Urine Nitrite Negative (Negative) 07/14/25 01:00 Urine Bilirubin Negative (Negative) 07/14/25 01:00 Urine Urobilinogen Negative (Negative) 07/14/25 01:00 Ur Leukocyte Esterase Negative (Negative) 07/14/25 01:00 Urine Comment 07/14/25 01:00 Blood Type O Positive 07/14/25 09:49 Blood Type Recheck O Positive 07/11/25 16:10 Antibody Screen NEGATIVE 07/14/25 09:49 Crossmatch See Detail 07/14/25 09:49 Impressions Abdomen/Pelvis CT 07/11/25 15:56 CT ABDOMEN and PELVIS with INTRAVENOUS CONTRAST HISTORY: Abdominal pain TECHNIQUE: CT abdomen and pelvis with contrast. IV CONTRAST: 100 mL of OMNIPAQUE 300 ENTERIC CONTRAST: Not Given COMPARISON: CT abdomen pelvis October 21, 2024 FINDINGS: LIVER: Hepatic steatosis. Unchanged left hepatic lobe hypodensity measuring 1.2 cm is probably a cyst or a hemangioma. GALLBLADDER/BILIARY: Unremarkable gallbladder. No abnormal biliary dilatation. SPLEEN: Mild splenomegaly.. PANCREAS: Unremarkable. ADRENALS: Unremarkable. KIDNEYS: Unremarkable. No stones or hydronephrosis identified. PERITONEUM/RETROPERITONEUM. No lymphadenopathy by size criteria. No aortic aneurysm. Moderate atherosclerosis GASTROINTESTINAL: No obstruction. Colonic diverticulosis without evidence of diverticulitis. REPRODUCTIVE: No suspicious pelvic mass is identified. URINARY BLADDER: Unremarkable. BONES: Acute traumatic intertrochanteric and subtrochanteric fractures of the left femur with impaction and varus angulation. Chronic appearing fracture of the L3 vertebral body without significant retropulsion Chronic appearing fractures of right fourth and fifth ribs. IMPRESSION: Acute traumatic intertrochanteric and subtrochanteric fractures of the left femur with impaction and varus angulation. Electronically signed by Dominic Haq 07-11-2025 5:14 PM Ankle X-Ray 07/11/25 15:56 INDICATION: TRAUMA TECHNIQUE: 3 views of the left ankle were obtained. COMPARISON: None FINDINGS: No displaced acute osseous process is identified. Chronic/old fracture deformity of the distal fibula with callus formation IMPRESSION: No displaced acute osseous process is identified. Electronically signed by Dominic Haq 07-11-2025 5:[address] 07/11/25 15:56 CT CERVICAL SPINE WITHOUT CONTRAST: HISTORY: TRAUMA TECHNIQUE: Noncontrast CT examination of the cervical spine is performed. Coronal and sagittal reformats were created. COMPARISON: None FINDINGS: CERVICAL SPINE: There is no significant vertebral body height loss. No acute traumatic fracture identified in the cervical spine. There is an acute/subacute appearing compression fracture of T2 vertebral body resulting in anterior wedging with approximately 40% vertebral body height loss without significant retropulsion. Questionable fracture of the left second rib posteriorly near the costovertebral junction There is no significant spondylolisthesis. Multilevel degenerative changes characterized by disc osteophyte complex, bilateral facet and uncovertebral hypertrophy resulting and neural foraminal narrowing at multiple levels, worst at mid to lower spine. Visualized soft tissues of neck are unremarkable. Visualized lung apex is clear. IMPRESSION: No acute traumatic fracture identified in the cervical spine. There is an acute/subacute appearing compression fracture of T2 vertebral body resulting in anterior wedging with approximately 40% vertebral body height loss without significant retropulsion. Questionable fracture of the left second rib posteriorly near the costovertebral junction Electronically signed by Dominic Haq 07-11-2025 4:[address] 07/11/25 15:56 Clinical history: Trauma Technique: Axial computed tomography images were obtained of the chest after the administration of intravenous contrast Findings: There is a 3 mm peripheral nodule in the left lower lobe. There is mild subsegmental atelectasis in both lower lobes. There is no pleural effusion or pneumothorax. There is no sign of pulmonary fibrosis or other diffuse interstitial process. No endobronchial lesion is seen There is no mediastinal, hilar, or axillary adenopathy. The thoracic aorta appears unremarkable with no sign of aneurysm or dissection. There is no pericardial effusion There is a small hiatal hernia. There is a 1.5 cm cyst in the left hepatic lobe. No fracture is seen. No focal osseous lesion is evident Impression: 1. No definite sign of injury after trauma 2. Small left lower lobe nodule, most likely benign. If there is a history of smoking or other high-risk indicators, a follow-up chest CT could be obtained in 6 months 3. Mild bilateral lower lobe atelectasis 4. Small hiatal hernia 5. Hepatic cyst ACT 112: Positive. There are findings on this exam that require communication between the performing entity and the patient following Patient Test Result Information Act ([place] ACT 112) guidelines. Electronically signed by Balaji Cobian 07-11-2025 5:[address] 07/11/25 15:56 CT HEAD: HISTORY: Trauma TECHNIQUE: Noncontrast CT examination of the head is performed. Coronal and sagittal reformats were created. COMPARISON: None FINDINGS: There is no evidence of intracranial hemorrhage, focal mass effect or midline shift. No fluid collection is identified. The ventricular system is midline and symmetric. No evidence of acute major vascular territory infarction. Age-related involutional changes of the brain and chronic white matter ischemic changes. Small meningioma measuring 7 mm overlying the left frontal convexity. No calvarial fracture is identified. The paranasal sinuses and mastoids are well aerated. IMPRESSION: No acute intracranial process identified. Chronic findings as above Electronically signed by Dominic Haq 07-11-2025 4:55 PM Pelvis X-Ray 07/11/25 15:56 INDICATION: Trauma TECHNIQUE: Frontal pelvic radiograph was obtained. COMPARISON: None FINDINGS: Acute traumatic impacted fractures of the left femur with both intertrochanteric and subtrochanteric components. There is varus angulation. IMPRESSION: Acute traumatic impacted fractures of the left femur with both intertrochanteric and subtrochanteric components. Electronically signed by Domiinc Haq 07-11-2025 5:24 PM Tibia/Fibula X-Ray 07/11/25 15:56 INDICATION: Trauma TECHNIQUE: 2 views of the left tibia-fibula were obtained. COMPARISON: None FINDINGS: Irregular lucency in the proximal fibular shaft is suspicious for an traumatic fracture. Old/healed fracture deformity of the distal fibula with callus IMPRESSION: Irregular lucency in the proximal fibular shaft is suspicious for an traumatic fracture. Electronically signed by Dominic Haq 07-11-2025 5:23 PM Femur X-Ray 07/12/25 13:34 XR femur LT 2V routine CLINICAL HISTORY: s/p orif COMPARISON: 07/11/2025 FINDINGS: Interval left femoral gamma nail shows no hardware complication. There is improved alignment at the proximal femur fracture. There is expected soft tissue gas. Skin krunal are present laterally. IMPRESSION: Improved alignment. ACT 112: Negative or not required by law. Electronically signed by: Arnie Bloom M.D. 07/12/2025 2:15 PM Chest X-Ray 07/13/25 23:29 Exam(s): XR CXR 1 VIEW EXAM: XR Chest, 1 View CLINICAL HISTORY: Reason for exam: sob. TECHNIQUE: Frontal view of the chest. COMPARISON: Chest radiograph on 07/11/2025 FINDINGS: Hardware: None. Lungs/pleura: Mild left lower lung atelectasis. No focal consolidation. No pleural effusion or pneumothorax. Heart/mediastinum: Enlargement of the cardiac silhouette. Soft tissues: Unremarkable. Bones: No acute fracture. Upper abdomen: Normal. IMPRESSION: No acute disease identified. Electronically signed by: Marcel Mooney M.D. 07/14/25 02:34 AM Chest CTA 07/14/25 04:16 EXAM: CT angio chest PE protocol CLINICAL HISTORY: Sob. TECHNIQUE: Contiguous 3.[address] angiographic images of the chest were acquired with the administration of intravenous contrast. Coronal and sagittal reconstructions were obtained. A total of 118 cc of Optiray 320 was administered for post-contrast images. One of the following 3D techniques was utilized: Maximum Intensity Pixel (MIP), 3D Reconstructed Images, Volume Rendered Images, or Surface Shaded Rendering. One of the following dose reduction techniques was utilized for this exam: automated exposure control, adjustment of the mA and/or kV according to patient size, and use of iterative reconstruction. CTDI: DLP: COMPARISON: Reviewed CT 07/11/2025. FINDINGS: Pulmonary Arteries: The pulmonary arteries are normal in size and opacification. There is no evidence of pulmonary embolism. There is no stenosis or filling defect. Aorta: The thoracic aorta is normal in caliber. There are mild atherosclerotic changes. There is no evidence of aneurysm or dissection. The aortic arch and descending thoracic aorta are unremarkable. Superior Vena Cava (SVC) and Inferior Vena Cava (IVC): There is normal opacification and caliber. There is no evidence of thrombus or obstruction. Mediastinum: There is no mediastinal mass or lymphadenopathy. There is a normal appearance of the thymus. Heart: There is cardiomegaly. There is no pericardial effusion. Lungs: The lungs show mild posterior basal dependent changes. There is a left lower lobe atelectatic band. There is no evidence of consolidation, nodules, or masses. There is no pleural effusion or thickening. Bones: There are no fractures or lytic/sclerotic lesions of the visualized bony structures. There is normal alignment and bone density. Soft Tissues: There is a normal appearance of the visualized soft tissues. There are no abnormal masses or fluid collections. The upper abdomen shows a liver segment III hypodense focal area, measuring 1.6 cm, likely a simple cyst. This is stable. IMPRESSION: 1. There is no evidence of PE; however, as contrast is seen simultaneously in the aorta and pulmonary artery, the possibility of a small branch occlusion cannot be entirely excluded. Please correlate clinically. 2. The PA diameter is at the upper limit of normal, measuring the MPA at 32 mm. The right PA is 26 mm, and the left is 25 mm. 3. There are mild atherosclerotic changes of the thoracic aorta and coronary vessels. 4. There are no significant interval changes. Electronically signed by Pacheco Mcintyre 07-14-2025 06:53 AM (1) Closed fracture of left hip requiring operative repair Encounter type: initial encounter Qualified Code(s): S72.002A - Fracture of unspecified part of neck of left femur, initial encounter for closed fracture
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
--- NOTE | 2025-07-15 16:37 | Electrocardiogram Report ---
Test Reason : Blood Pressure : */* mmHG Vent. Rate : 51 BPM Atrial Rate : 51 BPM P-R Int : 150 ms QRS Dur : 88 ms QT Int : 476 ms P-R-T Axes : 45 -23 54 degrees QTcB Int : 438 ms Sinus bradycardia Otherwise normal ECG When compared with ECG of 21-Oct-2024 18:31, Vent. rate has decreased by 27 bpm Confirmed by Urban Mo ([id number]) on 07/15/2025 4:37:18 PM Referred By: REFERRED SELF Confirmed By: Urban Mo
[2025-07-16 07:16] LABS: Hematocrit (blood only) 23.3 % (37.0-47.0); Hemoglobin 7.9 g/dl (12.0-16.0); Immature Granulocytes # (auto) 0.07 K/uL (0.01-0.20); Immature Granulocytes % (auto) 1.3 %; Mean Corpuscular Hemoglobin 29.7 pg (25.0-34.0); Mean Corpuscular Volume 87.6 fL (80.0-100.0); Platelet Count 136 K/uL (130-400); RDW Standard Deviation 42.6 fL (36.4-46.3); Red Blood Count 2.66 M/uL (4.20-5.40); White Blood Count 5.26 K/ul (4.8-10.8)
[2025-07-16 07:37] LABS: Anion Gap 5.0 (3-11); Blood Urea Nitrogen 21.0 mg/dl (6-23); Calcium 8.1 mg/dl (8.6-10.3); Carbon Dioxide 29.0 mmol/L (21-32); Chloride 103.0 mmol/L (98-107); Creatinine Clr Calc Pharmacy 74.5 ml/min; Glucose 101.0 mg/dl (70-99(Fasting)); Potassium 3.8 mmol/L (3.5-5.1); Sodium 137.0 mmol/L (136-145)
[2025-07-16 08:06] VITALS: BP 163/78; PULSE 73; RESP 18; TEMP 97.9; O2SAT 94
[2025-07-16 08:18] LABS: Polychromasia 1+
--- NOTE | 2025-07-16 10:04 | Orthopedic Progress Note ---
Date of Service July 16, 2025 Assessment & Plan (1) Closed fracture of left hip requiring operative repair: Plan: POD #4 s/p long troch nail with Dr. Romero Dressings left in place today. Distal one can be changed as needed. Can shower as long as dressings are intact. Will be removed at 2 week visit. Patient was able to get into chair yesterday with PT/OT. Reiterated the importance of mobilization to prevent blood clots. She expressed understanding. Hemoglobin 7.9 from 7.8 yesterday. Weightbearing as tolerated left lower extremity with walker. Aspirin 81 mg twice daily for DVT prophylaxis. TERE stockings bilaterally Ice to left hip as needed for pain or swelling. Elevate left lower extremity as needed for edema. Likely discharge within the next few days to [facility]. (2) Fracture of proximal end of fibula: Plan: Conservative management She may weight-bear as tolerated. If she has trouble weightbearing fully then can partial weight-bear with the assistance of her walker. Ice and elevate as needed for pain or swelling. Allowed for full knee range of motion and ankle range of motion as tolerated. Utilize walker to assist with ambulation No need for knee immobilizer or cam boot at this time. Will follow and recheck as outpatient at follow up appointments. Admission and Anticipated Discharge Date Admission Date: July 11, 2025 Subjective Patient seen resting in bed this morning. She states that she is tired, but doing ok. She was able to get up out of the bed and sat in the chair yesterday for about 1.5 hours. Still feels dizzy when getting up on her feet. She has no pain in the hip at rest, it is just sore when she moves it or walks on it. She denies any new chest pain or shortness of breath. No new numbness or tingling in the left lower extremity. Physical Exam Constitutional: Resting comfortably in bed. Pleasant. No distress Cardiovascular: Left DP pulse 2+ Musculoskeletal: Left lower extremity: Dependent ecchymosis in the left buttock/hip region. Mild swelling present about left hip, no blisters or tenderness in the soft tissue around the hip. Patient unable to perform straight leg raise but can actively flex the knee and hip. No pain with passive logroll of the hip. Silverlon dressing clean dry intact. Distal tegaderm dressing with a small amount of dried serosanguinous drainge, otherwise intact, no active drainage. Strength 5/5 with ankle plantarflexion, dorsiflexion, eversion Skin: Ecchymosis about left lower extremity Neurologic: No sensory deficits left lower extremity to light touch L3-S1 distribution. Results & Data Vital Signs (Past 12 Hours) Vital Signs Temp Pulse Resp BP Pulse Ox Pulse Ox O2 Del Method 07/16/25 08:02 97.9 F 73 18 163/78 H 94 Room Air 07/16/25 01:17 93 07/15/25 23:13 99.0 F 84 16 114/70 93 Room Air O2 Del Method 07/16/25 08:02 07/16/25 01:17 Room Air 07/15/25 23:13 Laboratory Results 07/16/25 06:27 WBC 5.26 RBC 2.66 L Hgb 7.9 L Hct 23.3 L MCV 87.6 MCH 29.7 MCHC 33.9 RDW Std Deviation 42.6 RDW Coeff of [place] 13.6 Plt Count 136 MPV 10.0 Immature Gran % (Auto) 1.3 Neut % (Auto) 59.6 Lymph % (Auto) 24.1 [place] % (Auto) 11.8 Eos % (Auto) 3.0 Baso % (Auto) 0.2 Neut # (Auto) 3.13 Lymph # (Auto) 1.27 [place] # (Auto) 0.62 H Eos # (Auto) 0.16 Baso # (Auto) 0.01 Immature Gran # (Auto) 0.07 Polychromasia 1+ Sodium 137 Potassium 3.8 Chloride 103 Carbon Dioxide 29 Anion Gap 5 BUN 21 Creatinine 0.57 L Est Cr Clr Drug Dosing 74.5 eGFR 88.45 BUN/Creatinine Ratio 36.8 H Glucose 101 H Calcium 8.1 L (1) Closed fracture of left hip requiring operative repair Encounter type: initial encounter Qualified Code(s): S72.002A - Fracture of unspecified part of neck of left femur, initial encounter for closed fracture (2) Fracture of proximal end of fibula Encounter type: initial encounter Fracture morphology: unspecified fracture morphology Fracture type: closed Laterality: left Qualified Code(s): S82.832A - Other fracture of upper and lower end of left fibula, initial encounter for closed fracture
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
[2025-07-16] MEDS: MECLIZINE 12.5 MG TAB PO ONE (12:45)
== END 2025-07-16 13:09 | DRG 480 ==
LOC: ED 15:51 → 3N 19:28 → SUATTDRO 19:28 → 3N 21:50